=== PATIENT | female | born 1940 | race Caucasian/White ===

== ENCOUNTER 2023-09-01 20:34 | Inpatient (IN) | payer MEDICARE, MEDICAID, SELFPAY ==
[2023-09-01 20:38] VITALS: BP 159/107; PULSE 91; RESP 18; TEMP 36.5; O2SAT 95; BMI 15.6
--- NOTE | 2023-09-01 20:40 | XRR_ITS ---
PROCEDURE INFORMATION: Exam: XR Left Hip Exam date and time: 09/01/2023 8:55 PM Age: 83 years old Clinical indication: Injury or trauma; Fall; Other: U/k; Patient HX: Left lateral hip pain; Additional info: Fall pain TECHNIQUE: Imaging protocol: Radiologic exam of the left hip. Views: 2 or 3 views hip with pelvis when performed. COMPARISON: No relevant prior studies available. FINDINGS: Bones/joints: Left hip intertrochanteric angulated impacted fracture. Lumbar spine degenerative disc space disease. Soft tissues: Unremarkable. XR/XR hip LT 2-3V wo/w pel* [id number] IMPRESSION: 1. Left hip intertrochanteric angulated impacted fracture. 2. Lumbar spine degenerative disc space disease.
--- NOTE | 2023-09-01 20:41 | ED_ITS ---
HPI - Fall 2 General: Chief Complaint: Extremity Injury, Lower Stated Complaint: Fall LT hip pain Time Seen by Provider: 09/01/23 20:37 History of Present Illness: Patient presents to the ER with complaints of a fall and left hip pain. Patient states she fell at home and landed on her left hip and started having excruciating pain in it. Patient denies any loss of consciousness syncope or passing out. Patient denies any head pain or neck pain. Patient did arrive by EMS with a c-collar in place. Patient has no other complaints other than left hip. Review of Systems 2 General: Reports: 10 or more systems reviewed and unremarkable except in HPI and below Physical Exam 2 Const: COMMON NORMALS: no acute distress, average body habitus, patient oriented x3, no limitations, healthy appearing, alert and well nourished HENMT: COMMON NORMALS: normocephalic, atraumatic, hearing grossly normal bilaterally, external ears normal, EAC's normal, Normal external nose present, moist oral mucous membranes and oropharynx normal HEAD & SCALP: normocephalic and atraumatic NOSE: Normal external nose present EXTERNAL EAR: Yes external ears normal EXTERNAL AUDITORY CANAL: EAC's normal Eye: COMMON NORMALS: Equal, round and reactive pupils present, EOMs intact bilaterally, conjunctivae normal and no scleral icterus CONJUNCTIVA: Yes conjunctivae normal PUPIL: Yes Equal, round and reactive pupils present Neck/C-Spine: COMMON NORMALS: full ROM, no lymphadenopathy, supple, no meningeal signs, no JVD and Thyroid normal THYROID: Thyroid normal Chest: COMMONS NORMALS: normal inspection of the chest and normal palpation of entire chest wall Resp: COMMON NORMALS: normal respiratory effort, No retractions, No use of accessory muscles and clear to auscultation bilaterally AUSCULTATION: clear to auscultation bilaterally Cardio: COMMON NORMALS: no JVD, regular rate, regular rhythm, S1 normal heart sound present, S2 normal heart sound present, No gallops present (Cardio), No clicks present (Cardio), No murmurs present (Cardio) and No rub (Cardio) R ATE: regular rate RHYTHM: regular rhythm HEART SOUNDS: S1 normal heart sound present and S2 normal heart sound present GI: COMMON NORMALS: Normal to inspection, nondistended, normoactive bowel sounds present, Soft to palpation, non-tender, No hepatosplenomegaly present and no masses PALPATION: Yes Soft to palpation and Yes No hepatosplenomegaly present Extremity: NARRATIVE EXTREMITY EXAM: Left lower leg drawn up, prominent tenderness with palpation over left hip region. No obvious crepitus deformity. Neuro: COMMON NORMALS: patient oriented x3 SENSORIUM/ORIENTATION: Yes alert MENINGEAL SIGNS: Yes no meningeal signs Course 2 Vital Signs: Vital signs: Vital Signs Temperature 97.7 F 09/01/23 20:38 Pulse Rate 85 09/01/23 22:27 Respiratory Rate 18 09/01/23 20:38 Blood Pressure 81/68 09/01/23 22:27 Pulse Oximetry 95 09/01/23 22:27 Oxygen Delivery Me thod Room Air 09/01/23 22:27 MDM - Fall Medical Decision Making Left hip x-ray was obtained which showed a left intertrochanteric angulated impacted hip fracture. Dr. Bergeron was consulted for further evaluation and treatment from medical standpoint we will do presurgical labs and EKG, Dr. Mills will be consulted from an orthopedic standpoint anticipate admission to [facility]. Dr. Mills notified we will obtain a full-length left femur and left knee in anticipation of probable surgery in the morning, Differential Diagnosis Unlikely syncope, dislocation of shoulder region, fracture of wrist, compression fracture, concussion with loss of consciousness or concussion without loss of consciousness Medical Records I reviewed the patient's medical records. Lab Data I reviewed the patient's lab results. 09/01/23 21:21 09/01/23 21:21 Radiology Impressions Hip/Pelvis X-Ray 09/01/23 20:40 IMPRESSION: 1. Left hip intertrochanteric angulated impacted fracture. 2. Lumbar spine degenerative disc space disease. Chest X-Ray 09/01/23 20:58 IMPRESSION: 1. Negative for acute abnormality. 2. Emphysematous changes. Laboratory Results WBC 7.92 10^3/uL (3.29-11.43) 09/01/23 21:21 RBC 4.07 10^6/uL (3.85-5.65) 09/01/23 21:21 Hgb 11.00 g/dL (11.27-16.99) L 09/01/23 21:21 Hct 34.5 % (36-47) L 09/01/23 21:21 MCV 84.8 fl (85-98) L 09/01/23 21:21 MCH 27.0 pg (27-33) 09/01/23 21:21 MCHC 31.9 g/dL (30-55) 09/01/23 21:21 RDW 14.5 % (12.1-15.1) 09/01/23 21:21 Plt Count 298 10^3/cmm (157-399) 09/01/23 21:21 MPV 11.2 fL (7.4-10.4) H 09/01/23 21:21 Neut % (Auto) 77.3 % 09/01/23 21:21 Lymph % (Auto) 13.5 % 09/01/23 21:21 [place] % (Auto) 7.1 % 09/01/23 21:21 Eos % (Auto) 1.1 % 09/01/23 21:21 Baso % (Auto) 0.6 % 09/01/23 21:21 Neut # (Auto) 6.12 10^3/uL (1.8-7.7) 09/01/23 21:21 Lymph # (Auto) 1.1 10^3/uL (0.8-4.8) 09/01/23 21:21 [place] # (Auto) 0.6 10^3/uL (0.2-0.9) 09/01/23 21:21 Eos # (Auto) 0.1 10^3/uL (0.0-0.8) 09/01/23 21:21 Baso # (Auto) 0.1 10^3/uL (0.0-0.1) 09/01/23 21:21 Nucleated RBC % (auto) 0 % 09/01/23 21:21 Nucleated RBCs # 0.0 /100WBC 09/01/23 21:21 PT 13.30 SECONDS (12.1-14.9) 09/01/23 21:21 INR 0.98 (0.8-1.2) 09/01/23 21:21 Sodium 138 mmol/L (136-145) 09/01/23 21:21 Potassium 4.2 mmol/L (3.5-5.1) 09/01/23 21:21 Chloride 101 mmol/L (98-107) 09/01/23 21:21 Carbon Dioxide 25 mmol/L (22-29) 09/01/23 21:21 Anion Gap 16.2 (5-19) 09/01/23 21:21 BUN 20 mg/dL (8-23) 09/01/23 21:21 Creatinine 1.2 mg/dL (0.5-0.9) H 09/01/23 21:21 GFR Calculation Not Reportable 09/01/23 21:21 Glucose 309 mg/dL (65-115) H 09/01/23 21:21 Calculated Osmolality 300 mOsm/kg (285-295) H 09/01/23 21:21 Calcium 9.0 mg/dL (8.5-10.5) 09/01/23 21:21 Total Bilirubin 0.2 mg/dL (0.15-1.2) 09/01/23 21:21 AST 19 U/L (0-32) 09/01/23 21:21 ALT 15 U/L (0-33) 09/01/23 21:21 Alkaline Phosphatase 100 U/L (35-105) 09/01/23 21:21 Total Protein 7.1 g/dL (6.6-8.7) 09/01/23 21:21 Albumin 4.0 g/dL (3.5-5.2) 09/01/23 21:21 Globulin 3.1 g/dL (1.3-4.6) 09/01/23 21:21 Urine Color Yellow (Yellow) 09/01/23 21:37 Urine Appearance Cloudy (CLEAR) A 09/01/23 21:37 Urine pH 6 (5-7) 09/01/23 21:37 Ur Specific [employer] 1.015 (1.005-1.030) 09/01/23 21:37 Urine Protein 2+ (Negative) H 09/01/23 21:37 Urine Glucose (UA) Trace (Normal) H 09/01/23 21:37 Urine Ketones Negative (Negative) 09/01/23 21:37 Urine Blood 3+ (Negative) H 09/01/23 21:37 Urine Nitrate Negative (Negative) 09/01/23 21:37 Urine Bilirubin Neg (Negative) 09/01/23 21:37 Urine Urobilinogen 1 mg/dL (Negative) H 09/01/23 21:37 Ur Leukocyte Esterase 2+ (Negative) H 09/01/23 21:37 Urine RBC 10-15 /hpf (0-2) H 09/01/23 21:37 Urine WBC 25-40 /hpf (0-5) H 09/01/23 21:37 Ur Squamous Epith Cells 15-25 /hpf (0-5) H 09/01/23 21:37 Amorphous Sediment Not Reportable 09/01/23 21:37 Urine Bacteria 2+ /hpf (NONE) H 09/01/23 21:37 Urine Mucus 2+ /hpf 09/01/23 21:37 Blood Type A Positive 09/01/23 21:21 Rho(D) Type Rh positive 09/01/23 21:21 Antibody Screen Negative 09/01/23 21:21 All radiology interpretation(s) finalized by discharge EKG Data EKG 1: I personally reviewed and interpreted this EKG as follows: EKG interpretation date: 09/01/23 EKG interpretation time: :29 Interpretation: Ventricular rate 84 bpm, CA interval 179, QRS duration 112, QTc of 452, sinus rhythm Discharge Plan Discharge Patient Disposition: Admitted As Inpatient Admit Provider: Gus Bergeron Clinical Impression: Closed intertrochanteric fracture of left hip, Fall Condition: Stable Coding Level of Care Code ED Choke Reamer for Vimal Solomon
--- NOTE | 2023-09-01 20:58 | XRR_ITS ---
PROCEDURE INFORMATION: Exam: XR Chest Exam date and time: 09/01/2023 9:02 PM Age: 83 years old Clinical indication: Injury or trauma; Fall; Other: U/k TECHNIQUE: Imaging protocol: Radiologic exam of the chest. Views: 1 view. COMPARISON: No relevant prior studies available. FINDINGS: Lungs: Emphysematous changes. Pleural spaces: Unremarkable. No pleural effusion. No pneumothorax. Heart/Mediastinum: Unremarkable. No cardiomegaly. Bones/joints: Unremarkable. XR/XR chest 1V portable [id number] IMPRESSION: 1. Negative for acute abnormality. 2. Emphysematous changes.
--- NOTE | 2023-09-01 21:04 | ECG_ITS ---
[facility] Test Date: 2023-09-01 Pat Name: Tamela Wahl Department: Room: Gender: Female Curriculum And Assessment Director: : 1940 Requested By: Osman Jordan Order Number: [id number] Amol MD: Sj Fatima M.D. Measurements Intervals [place] Rate: 84 P: 75 TX: 179 QRS: 73 QRSD: 112 T: 78 QT: 411 QTc: 487 Interpretive Statements SINUS RHYTHM SEPTAL MYOCARDIAL INFARCTION , PROBABLY OLD [40+ ms Q WAVE IN V1/V2] No previous ECG available for comparison Electronically Signed On 09-02-2023 17:53:45 ROBOTYPE OPERATOR by Sj Fatima M.D. [email or web address] and infantsTripGemsashtabula county medical centerSmart GPS Backpack/store/NU/[id number] f
[2023-09-01 21:32] LABS: Basophils # 0.1 10^3/uL (0.0-0.1); Basophils % 0.6 %; Eosinophils # 0.1 10^3/uL (0.0-0.8); Eosinophils % 1.1 %; Hematocrit 34.5 % (36-47); Lymphocytes # 1.1 10^3/uL (0.8-4.8); Lymphocytes % 13.5 %; Mean Corpuscular HGB Conc 31.9 g/dL (30-55); Mean Corpuscular Volume 84.8 fl (85-98); Mean Platelet Volume 11.2 fL (7.4-10.4); Monocytes # 0.6 10^3/uL (0.2-0.9); Monocytes % 7.1 %; Neutrophils # 6.12 10^3/uL (1.8-7.7); Neutrophils % 77.3 %; Nucleated Red Blood Cells % 0 %; Platelet Count 298 10^3/cmm (157-399); Red Blood Count 4.07 10^6/uL (3.85-5.65); Red Cell Distribution Width 14.5 % (12.1-15.1); White Blood Count 7.92 10^3/uL (3.29-11.43)
--- NOTE | 2023-09-01 21:39 | XRR_ITS ---
PROCEDURE INFORMATION: Exam: XR Left Femur Exam date and time: 09/01/2023 10:52 PM Age: 83 years old Clinical indication: Injury or trauma; Fall; Other: Unknown; Additional info: Fall hip FX TECHNIQUE: Imaging protocol: Radiologic exam of the left femur. Views: 1 view. COMPARISON: CR (PELVIS, ) 09/01/2023 8:55 PM FINDINGS: Bones/joints: Single lateral view is negative for abnormality, consider additional views and/or CT for further evaluation if concern for abnormality remains. Soft tissues: See above XR/XR femur LT min 2V* [id number] IMPRESSION: Single lateral view is negative for abnormality, consider additional views and/or CT for further evaluation if concern for abnormality remains.
[2023-09-01 21:42] LABS: INR 0.98 (0.8-1.2)
[2023-09-01 21:58] LABS: Alanine Aminotransferase 15 U/L (0-33); Alkaline Phosphatase 100 U/L (35-105); Anion Gap 16.2 (5-19); Aspartate Amino Transferase 19 U/L (0-32); Blood Urea Nitrogen 20 mg/dL (8-23); Carbon Dioxide 25 mmol/L (22-29); Chloride 101 mmol/L (98-107); Creatinine Clr Calc Pharmacy 28.2117; Globulin 3.1 g/dL (1.3-4.6); Glucose 309 mg/dL (65-115); Osmolality Calculated 300 mOsm/kg (285-295); Potassium 4.2 mmol/L (3.5-5.1); Sodium 138 mmol/L (136-145); Total Bilirubin 0.2 mg/dL (0.15-1.2); Total Protein 7.1 g/dL (6.6-8.7)
[2023-09-01 22:00] LABS: Urine Appearance Cloudy (CLEAR); Urine Color Yellow (Yellow)
[2023-09-01 22:01] LABS: Add Urine Microscopic? YES; Bilirubin Urine Neg (Negative); Blood Urine 3+ (Negative); Glucose Urine UA Trace (Normal); Ketones Urine Negative (Negative); Leukocyte Esterase Urine 2+ (Negative); Nitrate Urine Negative (Negative); Protein Urine 2+ (Negative); Specific Gravity, Urine 1.015 (1.005-1.030); Urobilinogen Urine 1 mg/dL (Negative); pH Urine 6 (5-7)
[2023-09-01 22:02] LABS: Bacteria Urine 2+ /hpf; Mucus Urine 2+ /hpf; Squamous Epithelial Cell Urine 15-25 /hpf (0-5); WBC Urine 25-40 /hpf (0-5)
[2023-09-01 22:03] LABS: Add Urine Culture? No
[2023-09-01 22:27] VITALS: BP 81/68; PULSE 85; O2SAT 95
[2023-09-01 22:40] VITALS: RESP 18; O2SAT 96
[2023-09-01] MEDS: fentaNYL 50 mcg/mL INJ 2mL IVP (22:40)
--- NOTE | 2023-09-01 23:43 | PC.NURSE ---
Report was called to Meryl ROBERTS on [place]. All questions and concerns were addressed at time of report.
[2023-09-02] VITALS (17 sets, daily range): BP systolic 91–132; BP diastolic 38–63; PULSE 76–98; RESP 14–20; TEMP 36.3–37.4; O2SAT 91–100; BMI 15.6
--- NOTE | 2023-09-02 00:06 | P.HP_ITS ---
Providers/Chief Complaint 2 Admitting Physician: Gus Bergeron Chief Complaint: Fall LT hip pain History of Present Illness Pleasant 83-year-old lady states he slipped and fell at the senior facility where she resides, with pain in her left hip, stayed on the floor for about 10 minutes before she managed to call for help, on assessment in ER after the fall she is found to have intertrochanteric angulated impacted left hip fracture. She does not ambulate at the facility, she states that she has no limitations of shortness of breath, chest pain or other that limit her walking. Denies any other health issues apart from the fall and states otherwise has been at baseline state of health. Review of Systems 2 Const: Denies: fever(s), chills, body aches or malaise ENMT: Denies: throat pain Card: Denies: chest pain, edema, pre-syncope or dyspnea on exertion Resp: Denies: dyspnea, productive cough, change in phlegm color or hemoptysis GI: Denies: abdominal pain, nausea, vomiting, diarrhea, constipation, hematochezia or melena : Denies: flank pain, urinary frequency or hematuria Musc: Reports: extremity pain; Denies: back pain, joint swelling or joint redness Skin/Breast: Denies: rash or new lesions Neuro: Denies: headache(s), dizziness or confusion Medications/Allergies Allergies Allergy/AdvReac Type Severity Reaction Status Date / Time codeine Allergy Unknown Unknown Verified 09/01/23 20:48 latex Allergy Unknown Unknown Verified 09/01/23 20:49 PFSH Acute 2 PFSH: Medical History Smoking addiction CVA (cerebral vascular accident) Hypercholesterolemia HTN (hypertension) DM type 2 (diabetes mellitus, type 2) Surgical History H/O toe surgery Social History (Updated 09/02/23 @ 00:23 by Gus Bergeron MD) Smoking and tobacco/nicotine status: current every day tobacco/nicotine user Vitals/I&O/Wt Last Vital Signs Temp 97.7 F 09/01/23 20:38 Pulse 85 09/01/23 22:27 Resp 18 09/01/23 22:40 BP 81/68 09/01/23 22:27 Pulse Ox 96 09/01/23 22:40 O2 Del Method Room Air 09/01/23 22:27 Weight last 48 hrs Weight 49.442 kg Physical Exam 2 Const: COMMON NORMALS: patient oriented x3 and alert GENERAL APPEARANCE: c ooperative ORIENTATION/CONSCIOUSNESS: Yes awake HENMT: COMMON NORMALS: oropharynx normal Neck/C-Spine: COMMON NORMALS: no JVD Resp: COMMON NORMALS: normal respiratory effort and clear to auscultation bilaterally AUSCULTATION: clear to auscultation bilaterally Cardio: COMMON NORMALS: no JVD, regular rhythm, S1 normal heart sound present, S2 normal heart sound present and No murmurs present (Cardio) RHYTHM: regular rhythm HEART SOUNDS: S1 normal heart sound present and S2 normal heart sound present GI: COMMON NORMALS: Normal to inspection, nondistended, normoactive bowel sounds present, Soft to palpation and non-tender PALPATION: Yes Soft to palpation Extremity: COMMON NORMALS: no joint enlargement and no pedal edema OTHER: Everted, or shortened left lower extremity. No swelling, redness, bruising over the left hip. Left lower extremity perfused, warm to touch, no loss of sensation. 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 Data 09/01/23 21:21 09/01/23 21:21 A&P Assessment and plan (1) Closed intertrochanteric fracture of left hip: Early after slipping and falling at home. Does appear to have UTI, question whether contributed to the fall. Angulated impacted intertrochanteric left hip fracture. Reviewed vitals, CBC, INR, CMP, UA, hip and pelvis x-ray, femur x- ray, chest x-ray, ER note, discussed with ER provider. Pending orthopedic assessment, she wants to pursue surgical intervention to repair the hip, resume mobility. Discussed with her some increasing the risk from surgery due to her age, smoking, comorbidities. Baseline EKG obtained, reviewed. On my interpretation without suggestion of acute OR or ischemia. Appears may have a Q wave in V2. Monitor on telemetry. NPO. SCD for VTE prophylaxis, 1 dose of heparin in anticipation of surgical intervention. Consultation with PT, case management. Received IV fentanyl in ER. Continue Tylenol for any mild pain, IV morphine for breakthrough. Qualifiers: Encounter type: initial encounter Fracture alignment: displaced Qualified Code(s): S72.142A - Displaced intertrochanteric fracture of left femur, initial encounter for closed fracture (2) UTI (urinary tract infection): Question whether UTI contributed to her fall, but does have 15-25, stable cells on UA. Empiric ceftriaxone for now, requesting urine culture. De-escalating case with no growth. (3) Smoking addiction: Discussed with her smoking cessation for 4 minutes, continue to encourage cessation. Nicotine replacement as needed. (4) Fall: Additional management of hip fracture as above. Additional assessment for possible UTI as above. PT assessment. Qualifiers: Encounter type: initial encounter Qualified Code(s): W19.XXXA - Unspecified fall, initial encounter Plan FLAKITO: Possible mild FLAKITO versus CKD, baseline unknown, creatinine noted 1.2. Avoid NSAIDs, other nephrotoxins. Emphysema: Incidentally noted on CT. She is doing well on room air. Encourage smoking cessation. Follow-up with PCP, consider PFT if symptomatic. History of stroke: Resume aspirin after surgery. Continue statin DM2: Monitor Accu-Cheks, sliding scale started. CC diet once resumed. Goals of care discussion: She is okay for treatment of her condition, including surgical intervention, intubation for surgery, but in case of cardiopulmonary arrest would not want CPR, intubation, Ventilation or other involved interventions. Attestations 2 Medical Necessity Statement*: Admission over 2 midnights anticipated for assessment management of angulated impacted intertrochanteric left hip fracture. and High MDM includes amount and/or complexity of data reviewed/ordered [ previous or external records, resulted lab(s)/test(s), ordered lab(s)/test(s) and other healthcare professional discussion] and described risk of complication, morbidity or mortality of management as documented Diagnoses Closed intertrochanteric fracture of left hip S72.142A Encounter type: initial encounter Fracture alignment: displaced UTI (urinary tract infection) N39.0 Smoking addiction F17.200 Fall W19.XXXA Encounter type: initial encounter
[2023-09-02] MEDS: morphine 4 mg/mL SDV 1 mL 2 MG IVP ×3 (00:55→15:27)
[2023-09-02] MEDS: cefTRIAXone 1,000 MG in sodium chloride 0.9% (plus) 50 ML 100 MG IV (00:58)
[2023-09-02] MEDS: heparin 5,000 unit/mL INJ 1 mL 5000 UNIT SUBCUT (01:01)
[2023-09-02] MEDS: cyclobenzaprine 10 mg Tablet 5 MG PO (03:13)
[2023-09-02 06:38] LABS: Glucose Point of Care 266 mg/dL (70-110)
[2023-09-02] MEDS: insulin lispro 100 unit/1 mL SUBCUT (08:02)
--- NOTE | 2023-09-02 09:30 | PC.SOCIAL ---
Pg 2 IMM Explained to pt Pg 2 IMM. No questions voiced. Provided pt a copy. Initialed, dated, & timed a copy & placed in chart.
--- NOTE | 2023-09-02 09:47 | PC.CHAP ---
Pastoral Care Encounter/Spiritual Assessment Type of Contact [] Declined chemical lab supervisor visit [] Patient/Family/Request visit [] Outpatient visit [] Follow-up visit [] Physician referral [] Code/Alert [x] Routine visit [] Staff referral [] Actively dying [] Patient sleeping [] Family support [] [] Out of room [] Palliative care [] [] Receiving care in room [] Pre-surgical visit [] Trauma [] Long length of stay [] ICU visit [] Other: Relational/Emotional Strength [x] Patient feels connected with others/family/visitors/staff [] Distress [] Loneliness/isolation [] Abandonment Spirituality of Patient [x] Person of Yaritza [] Attends [employer] of their Yaritza [x] Believes in Prayer [] Reads Bible or Christianity materials [] There are Spiritual issues to be addressed Manager Metrology Interventions [x] Prayer [x] Active listening [] Non-anxious presence [x] Spiritual/emotional support [] Crisis/trauma care [] Spiritual counseling [] Bereavement support [] Provided bereavement packet [] Provided Bible/devotional materials [] Provided toy/stuffed animal, coloring book to patient or family member [] Provided Communion [] Anointing/[place] [] Salvation [x] Completed spiritual assessment [] Other: Impact on Illness or Injury [] Angry [] Fearful [] Anxious [] Often cries [] Exhaustion [] Unable to work [] Unable to attend zoroastrianism [] Unable to walk/stand [] Unable to read [] Unable to drive [] Unable to eat/drink [] Unable to sleep [] Unable to be with family [] Patient intubated [] Other: Summary Time spent with patient 5 min
--- NOTE | 2023-09-02 09:57 | P.CONIM_ITS ---
<Statement entered by Santosh Mills DO - 09/02/23 19:24> Reviewed PAs assessment and plan agree with assessment and plan. Patient was seen evaluated by myself in the preoperative area she is oriented and alert and able to answer questions follow commands states she lives by herself. Denies having any family and home health comes out twice a week to help her out. She sustained a ground-level fall. Patient denied loss of consciousness complains of left hip pain. Review of her x-rays and preoperative x-rays were ordered prior to surgery and demonstrate a intertrochanteric femur fracture with subtrochanteric extension along with a spiral oblique fracture into the shaft of the femur. This point in time would recommend a left hip trochanteric long femur nail we talked about the treatment options nonoperative and operative invention. For fracture stabilization as well as earlier mobilization and pain control as well as given patient's displacement deformity would recommend surgical intervention she understands the ins and outs procedure risk benefits complication alternatives with surgery elects proceed with surgical intervention. All questions have been answered at this time. Understanding risk of surgery elects proceed all questions answered at this time. Plan will be postoperatively patient returned to the floor. Santosh Mills DO Orthopedic surgery Providers/Reason For Consult 2 Consulting Physician/Specialty*: Dr. Gene DO/ Orthopedic Surgeon Reason for Consult*: Left Intertrochanteric hip fracture Requesting Physician: Dr. Nikki DO Attending Physician: Noelle Andrew MD History of Present Illness History of Present Illness Tamela Wahl is a 83 year old female that has left hip fracture from fall. Orthopedics was consulted on patients left hip fracture. Patient has a past medical history of diabetes and hypertension. Pt lives at home alone and uses a walker at baseline. She states that she has a home health aide that comes out 2 days a week. Her injury occurred last night when she stood up and turned and then fell over causing left hip injury. She has some abrasions on both elbows but denies any other injury. Denies being on any blood thinners. Denies any fevers, upper respiratory symptoms, shortness of breath, chest pain, abdominal pain, nausea/vomiting, bladder or bowel symptoms. Review of Systems 2 General: Reports: 10 or more systems reviewed and unremarkable except in HPI and below ENMT: Denies: throat pain Card: Denies: chest pain Resp: Denies: dyspnea, productive cough or non-productive cough GI: Denies: abdominal pain, nausea, vomiting, diarrhea or constipation : Denies: dysuria Musc: Reports: joint pain (left hip pain) and limited range of motion (left hip) Skin/Breast: Reports: other (abrasions on bilateral elbows) Medications/Allergies Home Medications Medication Instructions Recorded Confirmed Last Taken Type amlodipine 5 mg tablet 5 mg PO DAILY 09/02/23 09/02/23 1 Day Ago History ~09/01/23 glipizide 10 mg tablet 10 mg PO BID 09/02/23 09/02/23 Unknown History hydrochlorothiazide 25 mg tablet 25 mg PO DAILY 09/02/23 09/02/23 09/01/23 06:00 History levothyroxine 50 mcg tablet 50 mcg PO DAILY 09/02/23 09/02/23 09/01/23 07:00 History (Levo-T) lisinopril 40 mg tablet 40 mg PO DAILY 09/02/23 09/02/23 1 Day Ago History ~09/01/23 0700 metformin 1,000 mg tablet 1,000 mg PO BID 09/02/23 09/02/23 1 Day Ago History ~09/01/23 0700 rosuvastatin 20 mg tablet 20 mg PO BEDTIME 09/02/23 09/02/23 2 Days Ago History ~08/31/23 sitagliptin phosphate 50 mg tablet 50 mg PO DAILY 09/02/23 09/02/23 09/01/23 07:00 History (Sis) Allergies Allergy/AdvReac Type Severity Reaction Status Date / Time codeine Allergy Unknown Unknown Verified 09/01/23 20:48 latex Allergy Unknown Unknown Verified 09/01/23 20:49 Current Medications Generic Name Dose Route Start Last Admin Trade Name Freq PRN Reason Stop Dose Admin Cyclobenzaprine HCl 5 mg 09/02/23 02:32 09/02/23 03:13 Cyclobenzaprine 10 Mg Tablet PO 09/03/23 02:31 5 mg TID PRN Administration MUSCLE SPASMS Ceftriaxone Sodium 1,000 mg/ 50 mls @ 100 mls/hr 09/02/23 00:35 09/02/23 02:26 Sodium Chloride IV Infused Q24H JUJU Infusion Protocol Insulin Human Lispro 0 unit 09/02/23 08:00 09/02/23 08:02 Insulin Lispro 100 Unit/1 Ml SUBCUT 8 unit WM&BEDTIME JUJU Administration Protocol Morphine Sulfate 2 mg 09/02/23 00:37 09/02/23 08:11 Morphine 4 Mg/Ml Sdv 1 Ml IVP 2 mg Q4H PRN Administration SEVERE PAIN PFSH Acute 2 PFSH: Medical History Smoking addiction CVA (cerebral vascular accident) Hypercholesterolemia HTN (hypertension) DM type 2 (diabetes mellitus, type 2) Surgical History H/O toe surgery Social History (Updated 09/02/23 @ 00:23 by Gus Bergeron MD) Smoking and tobacco/nicotine status: current every day tobacco/nicotine user Vitals/I&O/Wt Last Vital Signs Temp 97.8 F 09/02/23 08:00 Pulse 94 09/02/23 08:00 Resp 15 09/02/23 08:00 BP 110/60 09/02/23 08:00 Pulse Ox 95 09/02/23 08:00 O2 Del Method Room Air 09/02/23 08:00 09/01/23 09/02/23 09/02/23 22:59 06:59 14:59 Intake Total 50 / 50 Output Total 250 / 250 Balance -200 / -200 Weight last 48 hrs Weight 109 lb Weight 109 lb Physical Exam 2 Const: COMMON NORMALS: no acute distress and alert Resp: COMMON NORMALS: normal respiratory effort and No retractions Cardio: COMMON NORMALS: Peripheral pulses 2+ throughout PERIPHERAL PULSES: Peripheral pulses 2+ throughout Extremity: NARRATIVE EXTREMITY EXAM: Left hip-Leg is shortened and Internally rotated. tenderness to palpation of greater Trochanter. Positive Log Roll test. Pedal pulse 1+, normal cap refill under 2 seconds. sensation to foot intact. Secondary assessment of all other extremities?full range of motion and elbows in full range of motion of the right shoulder. Left shoulder has limited range of motion, but patient says that is her normal baseline function. She has Multiple superficial abrasions on bilateral elbows. Right lower extremity no abrasions and lno deformity seen. Pt able to move right leg. Any movement of right leg causes pain in her left hip. Neuro: SENSORIUM/ORIENTATION: Yes alert Skin: GENERAL SKIN EXAM: dry skin Urinary Catheter Management: Bowden: Cath Placed During This Visit: yes Reason for Continuing Indwelling Catheter: Required Immobilization for Trauma or Surgery or Anesthesia Urinary Catheter Date of Insertion: 09/02/23 Urinary Catheter Time of Insertion: 02:00 Data 09/01/23 21:21 09/01/23 21:21 Xray Ortho: Radiologist's impression: [address] [address] XRay Report Signed Patient: Tamela Wahl Unit #: [id number] : 1940 Age/Sex: 83 / F ADM Date: 09/01/23 Loc: [facility] Room/Bed: [facility] Attending Dr: Gus Bergeron MD Ordering Provider/Ordering MD: Osman Jordan DO Date of Service: 09/01/23 Procedure(s): XR femur LT min 2V* [id number] Accession Number(s): [id number] Report Number: [id number] PROCEDURE INFORMATION: Exam: XR Left Femur Exam date and time: 09/01/2023 10:52 PM Age: 83 years old Clinical indication: Injury or trauma; Fall; Other: Unknown; Additional info: Fall hip FX TECHNIQUE: Imaging protocol: Radiologic exam of the left femur. Views: 1 view. COMPARISON: CR (PELVIS, ) 09/01/2023 8:55 PM FINDINGS: Bones/joints: Single lateral view is negative for abnormality, consider additional views and/or CT for further evaluation if concern for abnormality remains. Soft tissues: See above XR/XR femur LT min 2V* [id number] IMPRESSION: Single lateral view is negative for abnormality, consider additional views and/or CT for further evaluation if concern for abnormality remains. Dictated By: Jace Kauffman MD Signed By: Jace Kauffman MD Signed Date/Time: 09/02/23 0016 DD/ 225 A&P Assessment and plan (1) Closed intertrochanteric fracture of left hip: Qualifiers: Encounter type: initial encounter Fracture alignment: displaced Qualified Code(s): S72.142A - Displaced intertrochanteric fracture of left femur, initial encounter for closed fracture Plan Plan: -Imaging and Labs reviewed -Hospitalist on board for medical management. -VTE prophylaxis -Nonweightbearing on Left leg -Pain control -N.p.o. -Surgery later Today (late afternoon or early evening) for Left hip ORIF with Trochanteric (Long) femur nail Coding Level of Care Code Acute Code for Chg Fwd Diagnoses Closed intertrochanteric fracture of left hip S72.142A Encounter type: initial encounter Fracture alignment: displaced Time Spent (min) 45
[2023-09-02 11:40] LABS: Glucose Point of Care 118 mg/dL (70-110)
--- NOTE | 2023-09-02 12:40 | PM.MISC ---
Miscellaneous Note Purpose of Documentation: Seen today. Plan for surgery later today. Patient n.p.o. since midnight. Does not offer any other complaints at this time. Resting comfortably in bed.
[2023-09-02 16:41] LABS: Glucose Point of Care 190 mg/dL (70-110)
[2023-09-02] MEDS: sodium chloride 0.9% 1,000 ML 30 ML IV (18:34)
--- NOTE | 2023-09-02 18:38 | PC.NURSE ---
SHIFT SUMMARY Pt rested quietly most of shift. When she reported pain, Morphine given. Pt goes to surgery at 1730.
[2023-09-02] MEDS: acetaminophen 1,000 MG/100 ML PIGGYBACK 400 MG IV (18:39)
[2023-09-02] MEDS: ketorolac 30 mg/mL INJ IVP (18:50)
--- NOTE | 2023-09-02 19:07 | ANES.PREANE2 ---
Pre-Anesthetic Assessment Height/Weight: Height 1.78 m Weight 49.442 kg Temp Pulse Resp BP Pulse Ox O2 Del Method O2 Flow Rate 99.3 F 97 20 H 122/46 91 Nasal Cannula 2 09/02/23 18:18 09/02/23 18:18 09/02/23 18:18 09/02/23 18:18 09/02/23 18:18 09/02/23 18:18 09/02/23 18:18 Operation Date: 09/02/23 17:35 Proposed Procedures p Trochanteric Femoral Nail(Left) - Santosh Gene, DO Was Beta Chase taken within 24 hours: N/A Was Clonidine taken within 24 hours: N/A Last intake: Intake Last Liquid Date 09/02/23 Last Liquid Time 00:00 Last Solid Date 09/01/23 Last Solid Time 17:30 Social Tobacco Exam alert and oriented x 3 Airway Submandibular: within normal limits Cervical ROM: within normal limits Mallampati: Class II Comments: Comments: Edentulous Pulmonary Chronic Obstructive Pulmonary Disease CV/HEM Hypertension Metabolic Diabetes Mellitus, Hyperlipidemia and Thyroid Disease Anesthetic Plan ASA status: 3 Anesthesia: General Risk of > 500 ml blood loss (7ml/kg in children): No Medications/Allergies Home Medications Medication Instructions Recorded Confirmed Last Taken Type amlodipine 5 mg tablet 5 mg PO DAILY 09/02/23 09/02/23 1 Day Ago History ~09/01/23 glipizide 10 mg tablet 10 mg PO BID 09/02/23 09/02/23 Unknown History hydrochlorothiazide 25 mg tablet 25 mg PO DAILY 09/02/23 09/02/23 09/01/23 06:00 History levothyroxine 50 mcg tablet 50 mcg PO DAILY 09/02/23 09/02/23 09/01/23 07:00 History (Levo-T) lisinopril 40 mg tablet 40 mg PO DAILY 09/02/23 09/02/23 1 Day Ago History ~09/01/23 0700 metformin 1,000 mg tablet 1,000 mg PO BID 09/02/23 09/02/23 1 Day Ago History ~09/01/23 0700 rosuvastatin 20 mg tablet 20 mg PO BEDTIME 09/02/23 09/02/23 2 Days Ago History ~08/31/23 sitagliptin phosphate 50 mg tablet 50 mg PO DAILY 09/02/23 09/02/23/24 07:00 History (Sis) Allergies Allergy/AdvReac Type Severity Reaction Status Date / Time codeine Allergy Unknown Unknown Verified 09/01/23 20:48 latex Allergy Unknown Unknown Verified 09/01/23 20:49 Current Medications Generic Name Dose Route Start Last Admin Trade Name Freq PRN Reason Stop Dose Admin Cyclobenzaprine HCl 5 mg 09/02/23 02:32 09/02/23 03:13 Cyclobenzaprine 10 Mg Tablet PO 09/03/23 02:31 5 mg TID PRN Administration MUSCLE SPASMS Ceftriaxone Sodium 1,000 mg/ 50 mls @ 100 mls/hr 09/02/23 00:35 09/02/23 02:26 Sodium Chloride IV Infused Q24H JUJU Infusion Protocol Sodium Chloride 1,000 mls @ 30 mls/hr 09/02/23 18:00 09/02/23 18:34 Sodium Chloride 0.9% IV 09/03/23 17:59 30 mls/hr .Q24H JUJU Administration Insulin Human Lispro 0 unit 09/02/23 08:00 09/02/23 11:49 Insulin Lispro 100 Unit/1 Ml SUBCUT Not Given WM&BEDTIME JUJU Protocol Morphine Sulfate 2 mg 09/02/23 00:37 09/02/23 15:27 Morphine 4 Mg/Ml Sdv 1 Ml IVP 2 mg Q4H PRN Administration SEVERE PAIN PFSH Anesthesia Medical History Smoking addiction CVA (cerebral vascular accident) Hypercholesterolemia HTN (hypertension) DM type 2 (diabetes mellitus, type 2) Surgical History H/O toe surgery Social History (Updated 09/02/23 @ 00:23 by Gus Bergeron MD) Smoking and tobacco/nicotine status: current every day tobacco/nicotine user Data Anesthesia 09/01/23 21:21 09/01/23 21:21 Short CBC 09/01/23 Range/Units 21:21 WBC 7.92 (3.29-11.43) 10^3/uL Hgb 11.00 L (11.27-16.99) g/dL Hct 34.5 L (36-47) % MCV 84.8 L (85-98) fl Plt Count 298 (157-399) 10^3/cmm Neut % (Auto) 77.3 % Neut # (Auto) 6.12 (1.8-7.7) 10^3/uL BMP 09/01/23 21:21 Sodium 138 Potassium 4.2 Chloride 101 Carbon Dioxide 25 BUN 20 Creatinine 1.2 H Glucose 309 H Calcium 9.0 Liver Function 09/01/23 Range/Units 21:21 Total Bilirubin 0.2 (0.15-1.2) mg/dL AST 19 (0-32) U/L ALT 15 (0-33) U/L Alkaline Phosphatase 100 (35-105) U/L Albumin 4.0 (3.5-5.2) g/dL Urine 09/01/23 Range/Units 21:37 Urine Color Yellow (Yellow) Urine Appearance Cloudy A (CLEAR) Urine pH 6 (5-7) Ur Specific [place] 1.015 (1.005-1.030) Urine Protein 2+ H (Negative) Urine Glucose (UA) Trace H (Normal) Urine Ketones Negative (Negative) Urine Nitrate Negative (Negative) Urine Bilirubin Neg (Negative) Ur Leukocyte Esterase 2+ H (Negative) Urine RBC 10-15 H (0-2) /hpf Urine WBC 25-40 H (0-5) /hpf Blood Bank 09/01/23 21:21 Blood Type A Positive Rho(D) Type Rh positive Antibody Screen Negative Coags 09/01/23 21:21 PT 13.30 INR 0.98 Cardiac Studies: No Data to Display
--- NOTE | 2023-09-02 19:12 | XRR_ITS ---
PROCEDURE INFORMATION: Exam: XR Left Hip Exam date and time: 09/02/2023 7:16 PM Age: 83 years old Clinical indication: Screening exam; Pre op; Additional info: Left hip fracture TECHNIQUE: Imaging protocol: Radiologic exam of the left hip. Views: 2 or 3 views hip with pelvis when performed. COMPARISON: CR XR hip LT 2-3V wo/w pel* [id number] 09/01/2023 8:55 PM FINDINGS: Bones/joints: Acute comminuted displaced intertrochanteric fracture of the proximal left femur with approximately 90 degrees varus angulation. The visualized left hemipelvis is grossly intact. Sacrum and coccyx are partially obscured by bowel gas/stool. Soft tissues: No gross soft tissue abnormality. XR/XR hip LT 2-3V wo/w pel* [id number] IMPRESSION: 1. Acute comminuted displaced intertrochanteric fracture of the proximal left femur
--- NOTE | 2023-09-02 19:12 | XRR_ITS ---
PROCEDURE INFORMATION: Exam: XR Left Femur Exam date and time: 09/02/2023 7:18 PM Age: 83 years old Clinical indication: Screening exam; Pre op; Additional info: Left hip fracture TECHNIQUE: Imaging protocol: Radiologic exam of the left femur. Views: 2 views. COMPARISON: CR XR femur LT min 2V* [id number] 09/01/2023 10:52 PM FINDINGS: Bones/joints: Acute displaced femoral shaft fracture extending from the intertrochanteric region through the mid femur. The distal femur is grossly intact. No evidence of fracture or subluxation of the left knee. Small left knee joint effusion. Dedicated radiographs of the knee may be helpful if clinically warranted. Soft tissues: Soft tissue edema of the proximal left thigh. XR/XR femur LT min 2V* [id number] IMPRESSION: 1. Acute displaced femoral shaft fracture extending from the intertrochanteric region through the mid femur. 2. Comminuted displaced intertrochanteric fracture of the left femur as described.
--- NOTE | 2023-09-02 19:13 | P.HPUD_ITS ---
Surgery/Procedure H&P Update DATE OF PROCEDURE: September 02, 2023 DATE H&P PERFORMED: 09/02/23 H&P UPDATE INFORMATION: I have reviewed H&P completed within last 30 days, I have examined patient prior to procedure and No changes to prior documentation CHANGES TO PREVIOUS DOCUMENTATION: Patient seen and evaluated PA agree with assessment and plan. Saw patient the preoperative holding area. Assessed patient. She has a displaced intertrochan teric femur fracture which apparently appears to have subtrochanteric extension unable initially to obtain images due to patient's tolerance will obtain some preoperative x-rays just once again for help with preoperative planning anticipate a left hip trochanteric long femur nail given the subtrochanteric tension that is visible on initial imaging. We talked about treatment options in detail with patient about risk benefits complication alternatives of surgery through shared decision making patient elects proceed with surgical intervention. She is oriented to place and time and self at this point in time elects to proceed with surgical intervention for left hip fixation. Patient understands and agrees with current plan. All questions answered. PREOP DIAGNOSIS: Left intertrochanteric femur fracture with subtrochanteric extension PRIMARY INDICATION FOR PROCEDURE: Left hip intertrochanteric femur fracture with subtrochanteric extension PLANNED PROCEDURE: Operation Date: 09/02/23 17:35 Proposed Procedures p Trochanteric Femoral Nail(Left) - Santosh Mills DO
[2023-09-02] MEDS: ceFAZolin 2,000 MG in sodium chloride 0.9% (plus) 50 ML 100 MG IV (19:27)
[2023-09-02] MEDS: tranexamic acid 1,000 mg/10mL SDV 1000 MG IV (19:58)
--- NOTE | 2023-09-02 21:01 | PC.NURSE ---
Upon arrival to OR room, patient noted to have skin tear to left arm, right arm and right lower extremity. Left arm and RLE dressed with optifoam dressing, right elbow was older in appearance and was dressed with telfa and coban.
[2023-09-02] MEDS: vancomycin 1,000 MG SDV 1000 MG XX (21:39)
--- NOTE | 2023-09-02 22:01 | P.BOP_ITS ---
Date of Procedure: 09/02/2023 Surgeon: Santosh Mills DO Pack Out Operator(s): Con Mills PA-C Procedure(s) performed: Left intertrochanteric/subtrochanteric/femur shaft fracture open reduction internal fixation with long cephalomedullary nail Left femur shaft open reduction internal fixation with 2 cables Findings of the procedure(s): Patient was found to have an left intertrochanteric femur fracture with subtrochanteric extension with a long spiral fracture fragment into the femur shaft. Patient underwent open reduction internal fixation procedure went as planned with no complications or issues. Will be returning to the floor postoperatively. Estimated blood loss: 250 mL Specimen(s) removed: None Post-operative diagnosis: Left intertrochanteric/subtrochanteric/femur shaft fracture
--- NOTE | 2023-09-02 22:04 | PM.OP ---
Operative Report Date of procedure: September 02, 2023 Surgeon: Santosh Mills DO Paper Testing Supervisor: Con Mills PA-C: PA was necessary for assistance in this case with leg positioning retraction and protection of neurovascular structures as well as assistance in reduction, implant fixation and instrumentation as well as wound closure and dressing application. Procedure: Preoperative diagnosis: Left displaced intertrochanteric femur fracture with subtrochanteric extension as well as a extension along the femur shaft Post-op diagnosis: Same femur shaft butterfly fracture fragment Procedure done: ?Left intertrochanteric with subtrochanteric extension femur fracture ORIF with cephalomedullary?nail Left femur shaft open reduction internal fixation with cabling Implants: Becky gamma?nail?long 11 mm x 400 mm x 125 degree Lag screw 10.5 mm x 100 mm Distal locking screw 5 mm x 45 and 50 mm 2 x 2.0 mm Jus-Miles cables Surgeon: Santosh Mills DO Estimated blood loss: 250 mL IV fluids: See anesthesia record Urine output: 150 mm Complications: See operative report Findings: See operative report narrative Condition: stable Disposition: Floor Brief History: Patient sustained a fall and was found to have a Left intertrochanteric hip fx with significant extension into the subtrochanteric region as well as appears to be a large spiral fracture fragment butterfly of the femur shaft pt has been unable to bear weight, Left hip/lower extremity shortened and internally rotated.? At this point time Pt was admitted by the hospitalist team and orthopedics was consulted.? Refer to consult note for detailed HPI.? We talked about treatment options as far as nonoperative and operative intervention. Recommend Left hip?trochanteric femur?nail.? Given the large fracture fragment of the femur shaft recommend talked about opening and likely cabling this fracture as well. At this point time patient would like to pursue surgical intervention for benefits of pain control and earlier mobilization.? ?Patient understands the ins and outs of procedure, the risk benefits complication alternatives of surgical nonsurgical treatment options.? Understanding risk of surgery pt agrees to proceed with surgical intervention all questions answered.? Consent obtained. Procedure: Patient seen evaluated in the preoperative holding area.? Consent was obtained.? Correct extremity was then marked.? Once cleared by anesthesia and the hospitalist team patient was taken back to the operative suite.? Patient underwent anesthesia per the anesthesia department.? Once appropriately anesthetized patient was placed on a fracture [place] table.? Patient was appropriately secured to the bed.? All bony prominences were well-padded.? At this point time patient received appropriate preoperative antibiotics.? Final timeout was performed.? Prior to beginning surgery a standard closed reduction maneuver was placed on the [place] table and large C-arm was brought in.? After performing a closed reduction maneuver there was able to achieve close reduction of Left intertrochanteric femur fracture.? Fracture site did? extend into the subtrochanteric as well as femur shaft component as result plan was for a Long?nail.? ?This point time the left lower extremity was then prepped and draped in standard orthopedic fashion Given patient had large spiral oblique fracture fragment the femur shaft component and this was not reducing completely on the [place] bed I then subsequently elected to proceed with opening at the fracture site of the shaft to clamp this as well as assist with cabling to hold this fracture in place to help with my reduction of this fracture. As result I performed a standard direct lateral approach to the femur sharp scalpel incision through skin and subcutaneous tissue maintaining exact hemostasis split the IT band longitudinally as well as split the vastus lateralis muscle belly fibers longitudinally with a [place] maintaining hemostasis evacuated the large hematoma and identified the fracture fragment. This oblique spiral butterfly fragment was visible and able to be manipulated with a Ozzy clamp once I was satisfied with this clamp and its reduction maintaining exactly on bone I then subsequently utilized the [employer] cable passers to pass to [employer] cables spanning appropriately along the fracture fragment this would help and secure this fragment after nail fixation clamps removed. These were then subsequently passed staying directly on bone with no soft tissue interposition and then subsequently these cables were appropriately tensioned and crimped as well as cut. At this point in time once I satisfied with this reduction small adjustments were made by my medical practice assistant to maintain the reduction of the proximal fracture component of the intertrochanteric fracture and subtrochanteric region. While this was maintained I then proceeded with a long cephalomedullary nail fixation. A standard longitudinal incision was made just proximal to the greater?trochanter roughly 4 cm in length sharp scalpel vision was made through skin and subcutaneous tissue.? I then utilized a blunt [place] to split? fascia and mobilized directly down to the greater?trochanter.? I then inserted my starting guidewire which was placed appropriate starting position the tip of the greater?trochanter.? This was advanced in AP and lateral films to be in center center position and advanced to the level lesser?trochanter.? This was confirmed to be in center center position on AP and lateral imaging.? Once this was done I then introduced my opening reamer which was then subsequently guide pin removed.? Next a long ball-tipped guidewire was then placed in center center position distally right at the superior pole the patella.? I then took a measurement which was 400 mm for length of the long?nail?screw.? The fracture reduction was maintained during reaming and I subsequently utilized flexible reamers and reamed sequentially up to a size 13 mm and elected for a 11 mm?nail.? I selected a 11 mm x 400 mm x 125 degree. At this point time the?nail?was then loaded onto the [employer] gamma?trochanteric?nail?guide.? This was placed within the canal and confirmed with XR and the setscrew was then gently placed not locked.? The?nail?was then impacted to appropriate depth .? X-rays were taken confirming appropriate positioning of the?nail?distally and reduction was maintained.? ?At this point time I then inserted my lag screw guide and subsequently used my previous lateral incision extended this approximately just slightly and encompassed the lag screw guide. Guide was placed directly onto bone.? Next I then subsequently placed the guidewire in center center position in the head with an appropriate tip to apex distance this was confirmed with multiple orthogonal images.? Once I was satisfied with my planned lag screw placement I then measured which was 100 mm.? I then set my cannulated drill and subsequently reamed this into the head at appropriate depth.? I then had my rep open the 10.5 mm x 100 mm lag screw which was then opened on the back table and subsequently screwed into place over my cannulated drill guide.? This was placed with excellent tip to apex distance.? Next I then utilized the compressing device and subsequently compressed my fracture after I let off traction.? This had excellent fracture compression and opposition and closing down to my fracture line.? Next I then locked the?nail?by locking my setscrew.? This point time the guidewire as well as the sleeve was then removed.? Next I obtained perfect circles distally at the knee to lock the?nail?distally.? I selected to first place my static screw in perfect [facility] [facility] technique small stab incision was made blunt dissection of the bone and then utilizing a drill and perfect [facility] technique drill bit was then advanced and confirmed to be within the?nail?utilizing fluoroscopic imaging I then subsequently drilled measured and placed appropriate length static locking screw.? I then subsequently added an additional screw in eccentric fashion for possible dynamization later if necessary this is placed at the central portion of the oblong hole subsequently drilled measured and placed appropriate length screw.? This completed my construct fixation the guide was subsequently removed.? And final images were taken.? AP and lateral of the Left intertrochanteric femur fracture which showed stable reduction and stable fixation.? Incision was then thoroughly irrigated.? Hemostasis was maintained with electrocautery.? I then once again thoroughly irrigated the incisions and then subsequently closed in layered fashion of 0 Vicryl 2-0 Vicryl and kd.? Silverlon dressings applied.? Patient was then awakened from anesthesia transported onto the hospital bed and taken to PACU in stable condition.? Patient tolerated procedure without complications. Disposition: Patient taken to PACU in stable condition.? Postoperatively,?will return to floor. Pts friend was updated on surgery. Patient to receive appropriate discharge instructions as well as pain medication DVT prophylaxis postoperatively.? She will be allowed weightbearing as tolerated Left lower extremity.? Will receive appropriate postoperative antibiotics, PT/OT.? Patient to follow-up in the orthopedic office in 2 weeks.?
--- NOTE | 2023-09-02 22:12 | PM.PACU ---
PACU note Narrative: Pt is an 83-year-old female just underwent a left hip ORIF with troch nail. Pt transferred to PACU in stable condition. Dressing is dry. Distal pulses are palpable toes are warm and well-perfused. Cap refill is normal and under 2 seconds. Unable to perform further motor and sensation assessment due to residual anesthetic pain is controlled. Exam: unarousable Disposition: back to floor
--- NOTE | 2023-09-02 22:13 | XR_ITS ---
WS: [id number] INTRAOPERATIVE TECHNIQUE: 13 Spot fluoroscopic images for intraoperative purposes. FLUOROSCOPY TIME: 236 seconds CLINICAL INFORMATION: OR PICS FINDINGS: Intraoperative changes palomo and screw fixation LEFT hip and intramedullary palomo and screw fixation in t he femur. Hardware appears in good position. IMPRESSION: Images obtained for intraoperative purposes.
--- NOTE | 2023-09-02 23:10 | XRR_ITS ---
PROCEDURE INFORMATION: Exam: XR Left Femur Exam date and time: 09/02/2023 11:24 PM Age: 83 years old Clinical indication: Other: Post op; Prior surgery; Surgery date: Post-operative (0-2 days); Surgery type: Lt femur orif; Additional info: Post op lt total femoral nailing. TECHNIQUE: Imaging protocol: Radiologic exam of the left femur. Views: 2 views. COMPARISON: OT XR femur LT min 2V* [id number] 09/02/2023 8:00 PM FINDINGS: Bones/joints: Comminuted intertrochanteric fracture proximal left femur and oblique fracture of the left femoral shaft are again identified. There are findings of open reduction internal fixation with metallic hardware including an intramedullary palomo. There is some residual displacement of the lesser trochanter. The other fragments are in anatomic alignment. Soft tissues: There is some air in the soft tissues from the recent surgery. XR/XR femur LT min 2V* [id number] IMPRESSION: Left femur fractures status post open reduction and internal fixation with metallic hardware.
[2023-09-03] VITALS (16 sets, daily range): BP systolic 80–145; BP diastolic 43–69; PULSE 80–88; RESP 14–17; TEMP 36.4–37.1; O2SAT 92–100
[2023-09-03] MEDS: cefTRIAXone 1,000 MG in sodium chloride 0.9% (plus) 50 ML 100 MG IV ×2 (00:05→23:40)
[2023-09-03] MEDS: ceFAZolin 2,000 MG in sodium chloride 0.9% (plus) 50 ML 100 MG IV ×3 (01:40→17:59)
[2023-09-03] MEDS: tranexamic acid 1,000 MG/100 ML PREMIX 600 MG IV (02:12)
[2023-09-03] MEDS: ondansetron 2 mg/ML SDV 2 mL 4 MG IVP (02:21)
[2023-09-03 05:07] LABS: Basophils % 0.3 %; Eosinophils % 0.5 %; Hematocrit 23.6 % (36-47); Lymphocytes # 0.4 10^3/uL (0.8-4.8); Lymphocytes % 6.3 %; Mean Corpuscular HGB Conc 30.1 g/dL (30-55); Mean Corpuscular Hemoglobin 27.2 pg (27-33); Mean Corpuscular Volume 90.4 fl (85-98); Mean Platelet Volume 11.8 fL (7.4-10.4); Monocytes # 0.7 10^3/uL (0.2-0.9); Monocytes % 11.9 %; Neutrophils # 4.62 10^3/uL (1.8-7.7); Neutrophils % 80.8 %; Nucleated Red Blood Cells # 0.1 /100WBC; Nucleated Red Blood Cells % 0.9 %; Platelet Count 184 10^3/cmm (157-399); Red Blood Count 2.61 10^6/uL (3.85-5.65); Red Cell Distribution Width 14.8 % (12.1-15.1); White Blood Count 5.72 10^3/uL (3.29-11.43)
[2023-09-03 05:31] LABS: Anion Gap 14.3 (5-19); Blood Urea Nitrogen 26 mg/dL (8-23); Calcium 7.4 mg/dL (8.5-10.5); Carbon Dioxide 24 mmol/L (22-29); Chloride 110 mmol/L (98-107); Creatinine Clr Calc Pharmacy 34.3052; Glucose 194 mg/dL (65-115); Osmolality Calculated 308 mOsm/kg (285-295); Potassium 4.3 mmol/L (3.5-5.1); Sodium 144 mmol/L (136-145)
[2023-09-03 08:32] LABS: Glucose Point of Care 194 mg/dL (70-110)
[2023-09-03] MEDS: multivitamin therapeutic Tablet 1 TAB PO (08:56)
[2023-09-03] MEDS: HYDROmorphone 1 mg/mL INJ 1 mL 0.5 MG IVP (08:56)
[2023-09-03] MEDS: mupirocin oint 22 gm 1 APPLIC NASAL ×2 (08:56→18:00)
[2023-09-03] MEDS: iron polysaccharide complex 150 mg Capsule PO ×2 (08:56→17:59)
[2023-09-03] MEDS: docusate sodium 100 mg Capsule PO ×2 (08:56→17:59)
[2023-09-03] MEDS: calcium carb-vit d 600mg/400unit 1 Tablet 1 EACH PO ×2 (08:57→17:59)
[2023-09-03] MEDS: insulin lispro 100 unit/1 mL SUBCUT ×2 (09:04→17:59)
[2023-09-03] MEDS: chlorhexidine gluconate 0.12% Btl 473 mL 30 ML MUCOUS MEM (09:19)
--- NOTE | 2023-09-03 09:49 | P.PN_ITS ---
Subjective 2 Subjective: Patient is 1 day postop left hip fracture ORIF. No acute events overnight. Physical therapy came and worked with patient this morning and physical therapist said pt was't able to do much and needed full assistance. She is able to keep PO fluids down. pain is controlled. No fevers. Vitals/I&O/Wt Last Vital Signs Temp 98.8 F 09/03/23 08:00 Pulse 82 09/03/23 09:02 Resp 16 09/03/23 09:02 BP 99/45 09/03/23 08:00 Pulse Ox 99 09/03/23 09:02 O2 Del Method Nasal Cannula 09/03/23 09:02 O2 Flow Rate 3 09/03/23 09:02 09/02/23 09/03/23 09/03/23 22:59 06:59 14:59 Intake Total 1200 / 1200 1300 / 2500 Output Total 400 / 400 375 / 775 Balance 800 / 800 925 / 1725 Weight last 48 hrs Weight 121 lb 8 oz Weight 109 lb Weight 109 lb Physical Exam 2 Const: COMMON NORMALS: no acute distress and alert Resp: COMMON NORMALS: normal respiratory effort and No retractions Cardio: COMMON NORMALS: Peripheral pulses 2+ throughout PERIPHERAL PULSES: Peripheral pulses 2+ throughout Extremity: NARRATIVE EXTREMITY EXAM: Exam limited due to patient being very somnolent. She is able to wake up and give some responses when prompted. Left hip-surgical dressing (Silverlon dressing) is dry and intact. Tissue under dressing is soft and no hematoma. pedal pulse 1+, toes are warm and well perfused. normal cap refill under 2 seconds. pt could perform dorsiflexion and plantarflexion. Neuro: SENSORIUM/ORIENTATION: Yes alert Skin: GENERAL SKIN EXAM: dry skin Urinary Catheter Management: Bowden: Cath Placed During This Visit: yes Reason for Continuing Indwelling Catheter: Required Immobilization for Trauma or Surgery or Anesthesia Urinary Catheter Date of Insertion: 09/02/23 Urinary Catheter Time of Insertion: 02:00 Data 09/03/23 04:49 09/03/23 04:49 Xray Ortho: Radiologist's impression: PROCEDURE INFORMATION: Exam: XR Left Femur Exam date and time: 09/02/2023 11:24 PM Age: 83 years old Clinical indication: Other: Post op; Prior surgery; Surgery date: Post-operative (0-2 days); Surgery type: Lt femur orif; Additional info: Post op lt total femoral nailing. TECHNIQUE: Imaging protocol: Radiologic exam of the left femur. Views: 2 views. COMPARISON: OT XR femur LT min 2V* [id number] 09/02/2023 8:00 PM FINDINGS: Bones/joints: Comminuted intertrochanteric fracture proximal left femur and oblique fracture of the left femoral shaft are again identified. There are findings of open reduction internal fixation with metallic hardware including an intramedullary palomo. There is some residual displacement of the lesser trochanter. The other fragments are in anatomic alignment. Soft tissues: There is some air in the soft tissues from the recent surgery. XR/XR femur LT min 2V* [id number] IMPRESSION: Left femur fractures status post open reduction and internal fixation with metallic hardware. Dictated By: Narinder Kumari Signed By: Narinder Kumari Signed Date/Time: 09/03/23 0137 DD/ 2324 A&P Assessment and plan (1) Closed intertrochanteric fracture of left hip: Qualifiers: Encounter type: initial encounter Fracture alignment: displaced Qualified Code(s): S72.142A - Displaced intertrochanteric fracture of left femur, initial encounter for closed fracture Plan Plan: -Imaging and Labs reviewed-Hgb 7.1 -Hospitalist on board for medical management. -VTE prophylaxis -weightbear as tolerated -Pain control -PT/OT Ortho will continue following and we will reevaluate tomorrow. Attestations 2 Medical Necessity Statement*: Ongoing care for Left Hip Fracture Coding Level of Care Code Acute Code for Chg Fwd Diagnoses Closed intertrochanteric fracture of left hip S72.142A Encounter type: initial encounter Fracture alignment: displaced
[2023-09-03] MEDS: enoxaparin 30 mg/0.3 mL Syringe SUBCUT (10:18)
[2023-09-03 11:12] LABS: Glucose Point of Care 129 mg/dL (70-110)
[2023-09-03] MEDS: lactulose oral liq 20 gm/30 mL UDC PO (13:26)
--- NOTE | 2023-09-03 13:31 | P.PN_ITS ---
Subjective 2 Subjective: seen this morning hb 7.1 this morning Vitals/I&O/Wt Last Vital Signs Temp 98.8 F 09/03/23 08:00 Pulse 82 09/03/23 09:02 Resp 16 09/03/23 09:02 BP 102/56 09/03/23 12:18 Pulse Ox 99 09/03/23 09:02 O2 Del Method Nasal Cannula 09/03/23 09:02 O2 Flow Rate 3 09/03/23 09:02 09/02/23 09/03/23 09/03/23 22:59 06:59 14:59 Intake Total 1200 / 1200 1300 / 2500 290 / 290 Output Total 400 / 400 375 / 775 Balance 800 / 800 925 / 1725 290 / 290 Weight last 48 hrs Weight 55.111 kg Weight 49.442 kg Weight 49.442 kg Physical Exam 2 Const: COMMON NORMALS: patient oriented x3 and alert GENERAL APPEARANCE: c ooperative ORIENTATION/CONSCIOUSNESS: Yes awake HENMT: COMMON NORMALS: oropharynx normal Neck/C-Spine: COMMON NORMALS: no JVD Resp: COMMON NORMALS: normal respiratory effort and clear to auscultation bilaterally AUSCULTATION: clear to auscultation bilaterally Cardio: COMMON NORMALS: no JVD, regular rhythm, S1 normal heart sound present, S2 normal heart sound present and No murmurs present (Cardio) RHYTHM: regular rhythm HEART SOUNDS: S1 normal heart sound present and S2 normal heart sound present GI: COMMON NORMALS: Normal to inspection, nondistended, normoactive bowel sounds present, Soft to palpation and non-tender PALPATION: Yes Soft to palpation Extremity: COMMON NORMALS: no joint enlargement and no pedal edema OTHER: no edema present Neuro: COMMON NORMALS: patient oriented x3 and moves all extremities S ENSORIUM/ORIENTATION: Yes alert Skin: COMMON NORMALS: no rashes or lesions noted GENERAL SKIN EXAM: no rashes or lesions noted OTHER: 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 Urinary Catheter Management: Bowden: Cath Placed During This Visit: yes Reason for Continuing Indwelling Catheter: Required Immobilization for Trauma or Surgery or Anesthesia Urinary Catheter Date of Insertion: 09/02/23 Urinary Catheter Time of Insertion: 02:00 Data 09/03/23 04:49 09/03/23 04:49 A&P Assessment and plan (1) Closed intertrochanteric fracture of left hip: Early after slipping and falling at home. Does appear to have UTI, question whether contributed to the fall. Angulated impacted intertrochanteric left hip fracture. Reviewed vitals, CBC, INR, CMP, UA, hip and pelvis x-ray, femur x- ray, chest x-ray, ER note, discussed with ER provider. Pending orthopedic assessment, she wants to pursue surgical intervention to repair the hip, resume mobility. Discussed with her some increasing the risk from surgery due to her age, smoking, comorbidities. Baseline EKG obtained, reviewed. On my interpretation without suggestion of acute MO or ischemia. Appears may have a Q wave in V2. Monitor on telemetry. NPO. SCD for VTE prophylaxis, 1 dose of heparin in anticipation of surgical intervention. Consultation with PT, case management. Received IV fentanyl in ER. Continue Tylenol for any mild pain, IV morphine for breakthrough. Qualifiers: Encounter type: initial encounter Fracture alignment: displaced Qualified Code(s): S72.142A - Displaced intertrochanteric fracture of left femur, initial encounter for closed fracture (2) UTI (urinary tract infection): Question whether UTI contributed to her fall, but does have 15-25, stable cells on UA. Empiric ceftriaxone for now, requesting urine culture. De-escalating case with no growth. (3) Smoking addiction: Discussed with her smoking cessation for 4 minutes, continue to encourage cessation. Nicotine replacement as needed. (4) Fall: Additional management of hip fracture as above. Additional assessment for possible UTI as above. PT assessment. Qualifiers: Encounter type: initial encounter Qualified Code(s): W19.XXXA - Unspecified fall, initial encounter Plan FLAKITO: Possible mild FLAKITO versus CKD, baseline unknown, creatinine noted 1.2. Avoid NSAIDs, other nephrotoxins. Emphysema: Incidentally noted on CT. She is doing well on room air. Encourage smoking cessation. Follow-up with PCP, consider PFT if symptomatic. History of stroke: Resume aspirin after surgery. Continue statin DM2: Monitor Accu-Cheks, sliding scale started. CC diet once resumed. #Acute anemia, most likely postop - hb 7.1 -Packed RBC 1 unit ordered this morning ? Recheck CBC 2 hours posttransfusion ? Constipation ? Patient requesting a laxative. Will order lactulose 20 g x 1 Attestations 2 Medical Necessity Statement*: Admission over 2 midnights anticipated for assessment management of angulated impacted intertrochanteric left hip fracture. Diagnoses Closed intertrochanteric fracture of left hip S72.142A Encounter type: initial encounter Fracture alignment: displaced UTI (urinary tract infection) N39.0 Smoking addiction F17.200 Fall W19.XXXA Encounter type: initial encounter
[2023-09-03 17:23] LABS: Glucose Point of Care 210 mg/dL (70-110)
[2023-09-03 21:29] LABS: Glucose Point of Care 89 mg/dL (70-110)
[2023-09-04] VITALS (11 sets, daily range): BP systolic 106–134; BP diastolic 36–62; PULSE 73–97; RESP 15–19; TEMP 36.2–37.1; O2SAT 91–98; BMI 17.8
[2023-09-04 00:40] LABS: Glucose Point of Care 155 mg/dL (70-110)
[2023-09-04 05:02] LABS: Basophils % 0.1 %; Eosinophils # 0.1 10^3/uL (0.0-0.8); Eosinophils % 1.1 %; Hematocrit 24.7 % (36-47); Lymphocytes # 0.7 10^3/uL (0.8-4.8); Lymphocytes % 7.8 %; Mean Corpuscular HGB Conc 32.8 g/dL (30-55); Mean Corpuscular Hemoglobin 28.1 pg (27-33); Mean Corpuscular Volume 85.8 fl (85-98); Mean Platelet Volume 11.4 fL (7.4-10.4); Monocytes # 0.5 10^3/uL (0.2-0.9); Monocytes % 5.9 %; Neutrophils # 7.52 10^3/uL (1.8-7.7); Neutrophils % 84.6 %; Nucleated Red Blood Cells % 0 %; Platelet Count 199 10^3/cmm (157-399); Red Blood Count 2.88 10^6/uL (3.85-5.65); Red Cell Distribution Width 14.8 % (12.1-15.1); White Blood Count 8.88 10^3/uL (3.29-11.43)
[2023-09-04 05:30] LABS: Anion Gap 11.2 (5-19); Blood Urea Nitrogen 30 mg/dL (8-23); Calcium 8.1 mg/dL (8.5-10.5); Carbon Dioxide 24 mmol/L (22-29); Chloride 104 mmol/L (98-107); Creatinine Clr Calc Pharmacy 41.9286; Glucose 154 mg/dL (65-115); Osmolality Calculated 289 mOsm/kg (285-295); Potassium 4.2 mmol/L (3.5-5.1); Sodium 135 mmol/L (136-145)
[2023-09-04 07:24] LABS: Glucose Point of Care 201 mg/dL (70-110)
--- NOTE | 2023-09-04 07:48 | ANE.PACU2 ---
Inpatient post-anesthesia follow up: Airway intact: Yes Vital signs: Temperature 98.7 F Pulse Rate 89 Respiratory Rate 16 Blood Pressure 106/51 Pulse Oximetry 91 Oxygen Delivery Me thod Room Air Oxygen Flow Rate 3 Fraction of Inspir ed Oxygen Hydration adequate: Yes Nausea and vomiting: No Pain level: 2 Mental status: Baseline Additional Comments: Stable PACU recovery
[2023-09-04] MEDS: calcium carb-vit d 600mg/400unit 1 Tablet 1 EACH PO ×2 (08:33→17:43)
[2023-09-04] MEDS: oxyCODONE 5 mg IR Tab/Cap PO ×2 (08:33→17:43)
[2023-09-04] MEDS: docusate sodium 100 mg Capsule PO ×2 (08:33→17:43)
[2023-09-04] MEDS: multivitamin therapeutic Tablet 1 TAB PO (08:33)
[2023-09-04] MEDS: insulin lispro 100 unit/1 mL SUBCUT ×4 (08:33→21:46)
[2023-09-04] MEDS: iron polysaccharide complex 150 mg Capsule PO ×2 (08:35→17:43)
[2023-09-04] MEDS: chlorhexidine gluconate 0.12% Btl 473 mL 30 ML MUCOUS MEM ×2 (08:38→17:43)
--- NOTE | 2023-09-04 09:38 | P.PN_ITS ---
Subjective 2 Subjective: Hemoglobin 8.10 today patient was given 1 unit packed RBC yesterday. Seen while working with physical therapy. Patient able to stand up with assistance. Able to look to her right and/or left strength upper and lower extremities pretty equal 3-4 out of 5 upper extremities. 3/ 5 lower extremities. Symmetrical strength. No focal deficits. Patient is legally blind. Carries a history of macular degeneration. Does not have a neglect to 1 side Face symmetrical, no slurred speech Difficult to test for cranial nerves as patient has very low vision. Follows commands and answers questions appropriately. No focal deficits as such. Says she lives alone at home and has a friend Susan who we can talk to in case needed if she is unable to speak for herself. Does not have any other family. Does have a living niece however does not want her niece contacted. Would like us to Dr. Davis if needed. Vitals/I&O/Wt Last Vital Signs Temp 97.2 F L 09/04/23 09:18 Pulse 88 09/04/23 09:18 Resp 18 09/04/23 09:18 BP 113/36 09/04/23 09:18 Pulse Ox 92 09/04/23 09:18 O2 Del Method Room Air 09/04/23 09:18 O2 Flow Rate 3 09/03/23 09:02 09/03/23 09/04/23 09/04/23 22:59 06:59 14:59 Intake Total 540 / 830 50 / 880 120 / 120 Balance 540 / 830 50 / 880 120 / 120 Weight last 48 hrs Weight 56.291 kg Weight 55.111 kg Physical Exam 2 Const: COMMON NORMALS: patient oriented x3 and alert GENERAL APPEARANCE: c ooperative ORIENTATION/CONSCIOUSNESS: Yes awake HENMT: COMMON NORMALS: oropharynx normal Neck/C-Spine: COMMON NORMALS: no JVD Resp: COMMON NORMALS: normal respiratory effort and clear to auscultation bilaterally AUSCULTATION: clear to auscultation bilaterally Cardio: COMMON NORMALS: no JVD, regular rhythm, S1 normal heart sound present, S2 normal heart sound present and No murmurs present (Cardio) RHYTHM: regular rhythm HEART SOUNDS: S1 normal heart sound present and S2 normal heart sound present GI: COMMON NORMALS: Normal to inspection, nondistended, normoactive bowel sounds present, Soft to palpation and non-tender PALPATION: Yes Soft to palpation Extremity: COMMON NORMALS: no joint enlargement and no pedal edema OTHER: no edema present Neuro: COMMON NORMALS: patient oriented x3 and moves all extremities S ENSORIUM/ORIENTATION: Yes alert Skin: COMMON NORMALS: no rashes or lesions noted GENERAL SKIN EXAM: no rashes or lesions noted OTHER: 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 Urinary Catheter Management: Bowden: Cath Placed During This Visit: yes, but has since been removed by the nurse Reason for Continuing Indwelling Catheter: Required Immobilization for Trauma or Surgery or Anesthesia Urinary Catheter Date of Insertion: 09/02/23 Urinary Catheter Time of Insertion: 02:00 Date Urinary Catheter Removed: 09/04/23 Time Urinary Catheter Discontinued: 06:10 Data 09/04/23 04:45 09/04/23 04:45 A&P Assessment and plan (1) Closed intertrochanteric fracture of left hip: Early after slipping and falling at home. Does appear to have UTI, question whether contributed to the fall. Angulated impacted intertrochanteric left hip fracture. Reviewed vitals, CBC, INR, CMP, UA, hip and pelvis x-ray, femur x- ray, chest x-ray, ER note, discussed with ER provider. Pending orthopedic assessment, she wants to pursue surgical intervention to repair the hip, resume mobility. Discussed with her some increasing the risk from surgery due to her age, smoking, comorbidities. Baseline EKG obtained, reviewed. On my interpretation without suggestion of acute TX or ischemia. Appears may have a Q wave in V2. Monitor on telemetry. NPO. SCD for VTE prophylaxis, 1 dose of heparin in anticipation of surgical intervention. Consultation with PT, case management. Received IV fentanyl in ER. Continue Tylenol for any mild pain, IV morphine for breakthrough. Qualifiers: Encounter type: initial encounter Fracture alignment: displaced Qualified Code(s): S72.142A - Displaced intertrochanteric fracture of left femur, initial encounter for closed fracture (2) UTI (urinary tract infection): Question whether UTI contributed to her fall, but does have 15-25, stable cells on UA. Empiric ceftriaxone for now, requesting urine culture. De-escalating case with no growth. (3) Smoking addiction: Discussed with her smoking cessation for 4 minutes, continue to encourage cessation. Nicotine replacement as needed. (4) Fall: Additional management of hip fracture as above. Additional assessment for possible UTI as above. PT assessment. Qualifiers: Encounter type: initial encounter Qualified Code(s): W19.XXXA - Unspecified fall, initial encounter Plan FLAKITO: Possible mild FLAKITO versus CKD, baseline unknown, creatinine noted 1.2. Avoid NSAIDs, other nephrotoxins. Emphysema: Incidentally noted on CT. She is doing well on room air. Encourage smoking cessation. Follow-up with PCP, consider PFT if symptomatic. History of stroke: Resume aspirin after surgery. Continue statin DM2: Monitor Accu-Cheks, sliding scale started. CC diet once resumed. #Acute anemia, most likely postop - hb 7.1 -Status post 1 unit packed RBC Hemoglobin this morning 8.1 ? Recheck Hb every 12 hours for now. ? Continue oral iron Constipation ? Patient requesting a laxative. Lactulose ordered yesterday. ? Placed on docusate senna 1 tablet twice daily. UTI ? Urine culture grew mixed mauro. ? Patient currently on ceftriaxone. ? Also received cefazolin intraoperatively. Disposition: Patient working with physical therapy however significantly weak and would benefit [facility] jail facility for [facility]hab at discharge. She is a max assist at this time. Occupational Therapy evaluation also ordered. Patient will require higher level of assistance and 24-hour care. She is not safe for return home at this time. Attestations 2 Medical Necessity Statement*: Admission over 2 midnights anticipated for assessment management of angulated impacted intertrochanteric left hip fracture. Diagnoses Closed intertrochanteric fracture of left hip S72.142A Encounter type: initial encounter Fracture alignment: displaced UTI (urinary tract infection) N39.0 Smoking addiction F17.200 Fall W19.XXXA Encounter type: initial encounter
--- NOTE | 2023-09-04 09:44 | P.PN_ITS ---
<Statement entered by Santosh Mills DO - 09/04/23 10:04> Patient seen and examined as well as PA, agree with PAs assessment and plan. At this point in time patient hemoglobin is responded to PRBC transfusion per hospitalist. She is much more awake and alert today. Dressings are clean dry and intact. Gross motor and sensory is intact distally. Distal pulses are palpable. Recommend patient continue to work with therapy. Anticipate she will likely need discharge to rehab facility for therapy to regain strength that she lives at home by herself. Patient understands agrees to current plan. Questions answered. Santosh Mills DO Orthopedic surgery Subjective 2 Subjective: Pt is 2 days post op left hip fracture ORIF with Trochanter (long) nail. Pt is alert and oriented today. She is able to answer all my questions accordingly. no acute events overnight. pain is controlled. Vitals/I&O/Wt Last Vital Signs Temp 97.2 F L 09/04/23 09:18 Pulse 88 09/04/23 09:18 Resp 18 09/04/23 09:18 BP 113/36 09/04/23 09:18 Pulse Ox 92 09/04/23 09:18 O2 Del Method Room Air 09/04/23 09:18 O2 Flow Rate 3 09/03/23 09:02 09/03/23 09/04/23 09/04/23 22:59 06:59 14:59 Intake Total 540 / 830 50 / 880 120 / 120 Balance 540 / 830 50 / 880 120 / 120 Weight last 48 hrs Weight 124 lb 1.6 oz Weight 121 lb 8 oz Physical Exam 2 Narrative: Pt is alert and oriented today. She is able to answer all my questions accordingly. Const: COMMON NORMALS: no acute distress and alert Resp: COMMON NORMALS: normal respiratory effort and No retractions Cardio: COMMON NORMALS: Peripheral pulses 2+ throughout PERIPHERAL PULSES: Peripheral pulses 2+ throughout Extremity: NARRATIVE EXTREMITY EXAM: Left hip-surgical dressing (Silverlon dressing) is dry and intact. Tissue under dressing is soft and no hematoma. pedal pulse 1+, toes are warm and well perfused. normal cap refill under 2 seconds. pt could perform dorsiflexion and plantarflexion. she can wiggle toes. unable to perform straight leg raise due to pain. Neuro: SENSORIUM/ORIENTATION: Yes alert Skin: GENERAL SKIN EXAM: dry skin Data 09/04/23 04:45 09/04/23 04:45 A&P Assessment and plan (1) Closed intertrochanteric fracture of left hip: Qualifiers: Encounter type: initial encounter Fracture alignment: displaced Qualified Code(s): S72.142A - Displaced intertrochanteric fracture of left femur, initial encounter for closed fracture Plan Plan: -Imaging and Labs reviewed-Hgb has gone up after transfusion of RBC- 8.1 -Hospitalist on board for medical management. -VTE prophylaxis -weightbear as tolerated -Pain control -PT/OT Ortho will continue following and we will reevaluate tomorrow. Attestations 2 Medical Necessity Statement*: Ongoing care for Left Hip fracture Coding Level of Care Code Acute Code for Chg Fwd Diagnoses Closed intertrochanteric fracture of left hip S72.142A Encounter type: initial encounter Fracture alignment: displaced
[2023-09-04] MEDS: enoxaparin 30 mg/0.3 mL Syringe SUBCUT (10:08)
[2023-09-04 11:43] LABS: Glucose Point of Care 146 mg/dL (70-110)
[2023-09-04 14:42] LABS: Basophils % 0.2 %; Eosinophils # 0.2 10^3/uL (0.0-0.8); Eosinophils % 1.3 %; Hematocrit 26.5 % (36-47); Lymphocytes # 0.9 10^3/uL (0.8-4.8); Lymphocytes % 7.3 %; Mean Corpuscular HGB Conc 32.5 g/dL (30-55); Mean Corpuscular Hemoglobin 28.4 pg (27-33); Mean Corpuscular Volume 87.5 fl (85-98); Mean Platelet Volume 11.1 fL (7.4-10.4); Monocytes # 0.7 10^3/uL (0.2-0.9); Monocytes % 6.1 %; Neutrophils # 10.26 10^3/uL (1.8-7.7); Neutrophils % 84.4 %; Nucleated Red Blood Cells % 0.3 %; Platelet Count 240 10^3/cmm (157-399); Red Blood Count 3.03 10^6/uL (3.85-5.65); White Blood Count 12.16 10^3/uL (3.29-11.43)
[2023-09-04 16:15] LABS: Glucose Point of Care 221 mg/dL (70-110)
[2023-09-04] MEDS: mupirocin oint 22 gm 1 APPLIC NASAL (17:43)
[2023-09-04 20:37] LABS: Glucose Point of Care 194 mg/dL (70-110)
[2023-09-05] VITALS (7 sets, daily range): BP systolic 107–158; BP diastolic 53–60; PULSE 80–106; RESP 16–20; TEMP 36.2–37.2; O2SAT 93–97
[2023-09-05] MEDS: cefTRIAXone 1,000 MG in sodium chloride 0.9% (plus) 50 ML 100 MG IV (00:03)
[2023-09-05 01:30] LABS: Basophils % 0.1 %; Eosinophils # 0.1 10^3/uL (0.0-0.8); Eosinophils % 1.2 %; Lymphocytes # 0.5 10^3/uL (0.8-4.8); Lymphocytes % 4.4 %; Mean Corpuscular HGB Conc 32.8 g/dL (30-55); Mean Corpuscular Hemoglobin 28.1 pg (27-33); Mean Corpuscular Volume 85.6 fl (85-98); Mean Platelet Volume 11.1 fL (7.4-10.4); Monocytes # 0.4 10^3/uL (0.2-0.9); Neutrophils # 9.41 10^3/uL (1.8-7.7); Neutrophils % 89.5 %; Nucleated Red Blood Cells % 0.2 %; Platelet Count 242 10^3/cmm (157-399); Red Blood Count 2.92 10^6/uL (3.85-5.65); White Blood Count 10.51 10^3/uL (3.29-11.43)
[2023-09-05 01:45] LABS: Anion Gap 12.8 (5-19); Blood Urea Nitrogen 28 mg/dL (8-23); Calcium 8.4 mg/dL (8.5-10.5); Carbon Dioxide 25 mmol/L (22-29); Chloride 101 mmol/L (98-107); Creatinine Clr Calc Pharmacy 42.8263; Glucose 59 mg/dL (65-115); Osmolality Calculated 283 mOsm/kg (285-295); Potassium 3.8 mmol/L (3.5-5.1); Sodium 135 mmol/L (136-145)
[2023-09-05 01:53] LABS: Magnesium 2.1 mg/dL (1.7-2.3)
[2023-09-05 06:18] LABS: Glucose Point of Care 158 mg/dL (70-110)
--- NOTE | 2023-09-05 06:39 | PC.NURSE ---
Per bladder scan pt was retaining 320 mLs of urine; notified Dr. Mcleod and he advised to straight cath. We got 310 mLs out upon straight cath. Pt tolerated well.
[2023-09-05] MEDS: docusate sodium 100 mg Capsule PO ×2 (08:18→17:44)
[2023-09-05] MEDS: calcium carb-vit d 600mg/400unit 1 Tablet 1 EACH PO ×2 (08:18→17:44)
[2023-09-05] MEDS: iron polysaccharide complex 150 mg Capsule PO ×2 (08:18→17:44)
[2023-09-05] MEDS: multivitamin therapeutic Tablet 1 TAB PO (08:18)
[2023-09-05] MEDS: insulin lispro 100 unit/1 mL SUBCUT ×2 (08:18→17:44)
[2023-09-05] MEDS: mupirocin oint 22 gm 1 APPLIC NASAL ×2 (08:19→17:47)
[2023-09-05] MEDS: chlorhexidine gluconate 0.12% Btl 473 mL 30 ML MUCOUS MEM ×4 (08:19→21:35)
[2023-09-05] MEDS: enoxaparin 40 mg/0.4 mL Syringe SUBCUT (10:16)
[2023-09-05 10:57] LABS: Glucose Point of Care 263 mg/dL (70-110)
--- NOTE | 2023-09-05 11:31 | PC.SOCIAL ---
IMM Update pg 2 of IMM updated and reviewed w/ patient. Copy provided and copy dated, initialed and placed in chart.
[2023-09-05 13:08] LABS: Iron 8 ug/dL (37-145); Total Iron Binding Capacity 197 mcg/dl; Unsaturated Iron Binding 189 ug/dL (112-347); Vitamin B12 170 pg/mL (232-1245)
--- NOTE | 2023-09-05 16:10 | P.PN_ITS ---
Subjective 2 Subjective: Hospital course, labs appreciated. Patient sitting comfortably in chair today. Denies any nausea, vomiting, headache. States she is fairly well and does not have any new complaints. Vitals/I&O/Wt Last Vital Signs Temp 97.8 F 09/05/23 11:59 Pulse 96 09/05/23 11:59 Resp 18 09/05/23 11:59 BP 149/60 09/05/23 11:59 Pulse Ox 95 09/05/23 11:59 O2 Del Method Room Air 09/05/23 08:00 O2 Flow Rate 3 09/03/23 09:02 09/05/23 09/05/23 09/05/23 06:59 14:59 22:59 Intake Total 170 / 1250 240 / 240 Output Total 310 / 685 Balance -140 / 565 240 / 240 Weight last 48 hrs Weight 52.73 kg Weight 56.291 kg Physical Exam 2 Const: COMMON NORMALS: patient oriented x3 and alert GENERAL APPEARANCE: c ooperative ORIENTATION/CONSCIOUSNESS: Yes awake HENMT: COMMON NORMALS: oropharynx normal Neck/C-Spine: COMMON NORMALS: no JVD Resp: COMMON NORMALS: normal respiratory effort and clear to auscultation bilaterally AUSCULTATION: clear to auscultation bilaterally Cardio: COMMON NORMALS: no JVD, regular rhythm, S1 normal heart sound present, S2 normal heart sound present and No murmurs present (Cardio) RHYTHM: regular rhythm HEART SOUNDS: S1 normal heart sound present and S2 normal heart sound present GI: COMMON NORMALS: Normal to inspection, nondistended, normoactive bowel sounds present, Soft to palpation and non-tender PALPATION: Yes Soft to palpation Extremity: COMMON NORMALS: no joint enlargement and no pedal edema OTHER: no edema present Neuro: COMMON NORMALS: patient oriented x3 and moves all extremities S ENSORIUM/ORIENTATION: Yes alert Skin: COMMON NORMALS: no rashes or lesions noted GENERAL SKIN EXAM: no rashes or lesions noted OTHER: 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 Urinary Catheter Management: Bowden: Cath Placed During This Visit: yes, but has since been removed by the nurse Reason for Continuing Indwelling Catheter: Required Immobilization for Trauma or Surgery or Anesthesia Urinary Catheter Date of Insertion: 09/02/23 Urinary Catheter Time of Insertion: 02:00 Date Urinary Catheter Removed: 09/04/23 Time Urinary Catheter Discontinued: 06:10 Data 09/05/23 01:15 09/05/23 01:15 Micro: Microbiology 09/01/23 21:37 Urine Culture - Final Urine,Clean Catch A&P Assessment and plan (1) Closed intertrochanteric fracture of left hip: Post-ORIF?09/01. Continue with physical therapy. Did have postoperative anemia. Hemoglobin stable now. Check iron panel. Continue with oral iron supplementation. Will start on IV iron supplementation as per iron studies. Continue with current pain management. Hold off on further IV pain medications. Qualifiers: Encounter type: initial encounter Fracture alignment: displaced Qualified Code(s): S72.142A - Displaced intertrochanteric fracture of left femur, initial encounter for closed fracture (2) UTI (urinary tract infection): Continue with IV ceftriaxone. Follow-up urine culture. Will plan to finish antibiotic course for UTI for overall 5 days. Day 4/5 today. (3) Smoking addiction: Discussed with her smoking cessation for 4 minutes, continue to encourage cessation. Nicotine replacement as needed. (4) Fall: Additional management of hip fracture as above. Additional assessment for possible UTI as above. PT assessment. Qualifiers: Encounter type: initial encounter Qualified Code(s): W19.XXXA - Unspecified fall, initial encounter Plan FLAKITO: Resolved. Most likely in setting of postoperative status. Monitor daily for now. Type 2 diabetes mellitus: Hyperglycemia in the morning today. Change insulin sliding scale to AC. Hold off on nightly insulin. Check A1c. Restart home dose of levothyroxine. Patient has not received levothyroxine since admission. Check TSH. Discharge plan: Patient has been accepted to SNF. Awaiting authorization. Plan to discharge in next 24 hours. Full code Carb consistent diet Famotidine for PUD prophylaxis SCDs for DVT prophylaxis. Not on medical prophylaxis given anemia postoperatively. Attestations 2 Medical Necessity Statement*: Requires further hospitalization for management of postoperative care for post- ORIF while safe discharge planning is sought. and Moderate Time for a total of 60 minutes, includes reviewing past or interval history, examining/interviewing patient, placing orders, counseling patient/family/other support, updating patient/family/other support, discussing plan of care with staff, communicating with other healthcare providers, documenting encounter and coordinating care Diagnoses Closed intertrochanteric fracture of left hip S72.142A Encounter type: initial encounter Fracture alignment: displaced UTI (urinary tract infection) N39.0 Smoking addiction F17.200 Fall W19.XXXA Encounter type: initial encounter
[2023-09-05 17:05] LABS: Thyroid Stimulating Hormone 0.82 uIU/mL (0.27-4.20)
[2023-09-05 17:22] LABS: Glucose Point of Care 247 mg/dL (70-110)
[2023-09-05] MEDS: iron sucrose 200 MG in sodium chloride 0.9% (100 ml) 100 ML 220 MG IV (17:44)
--- NOTE | 2023-09-05 19:02 | P.PN_ITS ---
<Statement entered by Santosh Mills DO - 09/05/23 21:53> Agree with PAs assessment and plan. Saw patient this evening she is recovering well labs reviewed. At this point time she stable from orthopedic standpoint okay to discharge. Discharge instructions as well as medications will be in chart. Patient will follow-up with the orthopedic office in 2 weeks for repeat x-rays and staple removal. All questions answered. Santosh Mills DO Subjective 2 Subjective: Pt is 3 days post op left hip fracture ORIF with Trochanter (long) nail. Pt is alert and oriented today. She is able to answer all my questions accordingly. no acute events overnight. pain is controlled. Spoke with nurse and she got up with PT today but was max assist. Vitals/I&O/Wt Last Vital Signs Temp 98.7 F 09/05/23 16:00 Pulse 95 09/05/23 16:00 Resp 16 09/05/23 16:00 BP 137/53 09/05/23 16:00 Pulse Ox 97 09/05/23 16:00 O2 Del Method Room Air 09/05/23 08:00 O2 Flow Rate 3 09/03/23 09:02 09/05/23 09/05/23 09/05/23 06:59 14:59 22:59 Intake Total 170 / 1250 480 / 480 240 / 720 Output Total 310 / 685 Balance -140 / 565 480 / 480 240 / 720 Weight last 48 hrs Weight 116 lb 4 oz Weight 124 lb 1.6 oz Physical Exam 2 Narrative: Pt is alert and oriented today. She is able to answer all my questions accordingly. Const: COMMON NORMALS: no acute distress and alert Resp: COMMON NORMALS: normal respiratory effort and No retractions Cardio: COMMON NORMALS: Peripheral pulses 2+ throughout PERIPHERAL PULSES: Peripheral pulses 2+ throughout Extremity: NARRATIVE EXTREMITY EXAM: Left hip-surgical dressing (Silverlon dressing) is dry and intact. Tissue under dressing is soft and no hematoma. pedal pulse 1+, toes are warm and well perfused. normal cap refill under 2 seconds. pt could perform dorsiflexion and plantarflexion. she can wiggle toes. unable to perform straight leg raise due to pain. Neuro: SENSORIUM/ORIENTATION: Yes alert Skin: GENERAL SKIN EXAM: dry skin Urinary Catheter Management: Bowden: Cath Placed During This Visit: yes, but has since been removed by the nurse Reason for Continuing Indwelling Catheter: Required Immobilization for Trauma or Surgery or Anesthesia Urinary Catheter Date of Insertion: 09/02/23 Urinary Catheter Time of Insertion: 02:00 Date Urinary Catheter Removed: 09/04/23 Time Urinary Catheter Discontinued: 06:10 Data 09/05/23 01:15 09/05/23 01:15 Micro: Microbiology 09/01/23 21:37 Urine Culture - Final Urine,Clean Catch A&P Assessment and plan (1) Closed intertrochanteric fracture of left hip: Qualifiers: Encounter type: initial encounter Fracture alignment: displaced Qualified Code(s): S72.142A - Displaced intertrochanteric fracture of left femur, initial encounter for closed fracture Plan Plan: -Imaging and Labs reviewed- Hgb 8.2 -Hospitalist on board for medical management. -VTE prophylaxis -weightbear as tolerated -Pain control -PT/OT Patient is cleared for discharge home from an orthopedic standpoint. Patient scheduled with a 2-week postop follow-up appointment at orthopedic clinic. Pt will be discharged home with lovenox prescription for post op blood clot prevention. Attestations 2 Medical Necessity Statement*: Ongoing care for left hip fracture Coding Level of Care Code Acute Code for Chg Fwd Diagnoses Closed intertrochanteric fracture of left hip S72.142A Encounter type: initial encounter Fracture alignment: displaced
--- NOTE | 2023-09-05 19:07 | PC.NURSE ---
pt bladder scanned 211 in bladder. notified
[2023-09-05 20:50] LABS: Glucose Point of Care 201 mg/dL (70-110)
[2023-09-05] MEDS: atorvastatin 40 mg Tablet 80 MG PO (21:35)
[2023-09-06] VITALS: BP 106/57; PULSE 96; RESP 20; TEMP 37.7; O2SAT 91
[2023-09-06] MEDS: cefTRIAXone 1,000 MG in sodium chloride 0.9% (plus) 50 ML 100 MG IV (00:15)
[2023-09-06 04:00] VITALS: BP 93/41; PULSE 51; RESP 18; TEMP 37.4; O2SAT 97
[2023-09-06 05:17] LABS: Basophils % 0.2 %; Eosinophils # 0.2 10^3/uL (0.0-0.8); Eosinophils % 1.3 %; Hematocrit 25.5 % (36-47); Lymphocytes # 0.4 10^3/uL (0.8-4.8); Mean Corpuscular HGB Conc 32.5 g/dL (30-55); Mean Corpuscular Hemoglobin 27.8 pg (27-33); Mean Corpuscular Volume 85.3 fl (85-98); Mean Platelet Volume 11.3 fL (7.4-10.4); Monocytes # 0.3 10^3/uL (0.2-0.9); Monocytes % 2.4 %; Neutrophils % 92.6 %; Nucleated Red Blood Cells % 0.1 %; Platelet Count 266 10^3/cmm (157-399); Red Blood Count 2.99 10^6/uL (3.85-5.65); Red Cell Distribution Width 15.1 % (12.1-15.1)
[2023-09-06 05:47] LABS: Cholesterol 60 mg/dL (0-200); HDL Cholesterol 24 mg/dL (60-100); LDL Cholesterol Calculated 17 mg/dL (50-129); Triglycerides 95 mg/dL (0-150); VLDL Cholestrol Calculation 19 mg/dL (0-30)
[2023-09-06 05:48] LABS: Alanine Aminotransferase 22 U/L (0-33); Albumin Level 2.5 g/dL (3.5-5.2); Alkaline Phosphatase 74 U/L (35-105); Anion Gap 17.8 (5-19); Aspartate Amino Transferase 71 U/L (0-32); Blood Urea Nitrogen 34 mg/dL (8-23); Calcium 7.8 mg/dL (8.5-10.5); Carbon Dioxide 21 mmol/L (22-29); Chloride 96 mmol/L (98-107); Globulin 2.3 g/dL (1.3-4.6); Glucose 180 mg/dL (65-115); Osmolality Calculated 284 mOsm/kg (285-295); Potassium 3.8 mmol/L (3.5-5.1); Sodium 131 mmol/L (136-145); Total Bilirubin 0.5 mg/dL (0.15-1.2); Total Protein 4.8 g/dL (6.6-8.7)
[2023-09-06 06:00] VITALS: PULSE 94
[2023-09-06] MEDS: ketorolac 30 mg/mL INJ 15 MG IVP (06:17)
[2023-09-06 06:20] LABS: Estmated Average Glucose 183
[2023-09-06 06:39] LABS: Glucose Point of Care 213 mg/dL (70-110)
[2023-09-06 07:35] VITALS: BP 106/51; PULSE 90; RESP 14; TEMP 36.8; O2SAT 93
[2023-09-06] MEDS: insulin lispro 100 unit/1 mL SUBCUT ×2 (08:11→13:00)
[2023-09-06] MEDS: calcium carb-vit d 600mg/400unit 1 Tablet 1 EACH PO (08:12)
[2023-09-06] MEDS: amlodipine 5 mg Tablet PO (08:12)
[2023-09-06] MEDS: iron polysaccharide complex 150 mg Capsule PO (08:12)
[2023-09-06] MEDS: multivitamin therapeutic Tablet 1 TAB PO (08:12)
[2023-09-06] MEDS: levothyroxine 50 mcg Tablet PO (08:12)
[2023-09-06] MEDS: chlorhexidine gluconate 0.12% Btl 473 mL 30 ML MUCOUS MEM ×2 (08:12→13:01)
[2023-09-06 08:59] LABS: SARS Covid-2 Antigen negative (Negative)
--- NOTE | 2023-09-06 10:00 | P.DS_ITS ---
Discharge Providers Date of Admission: 09/01/23 22:12 Date of Discharge: September 06, 2023 Attending Provider at Admission: Gus Bergeron Attending Provider at Discharge: Bacilio Gill MD Consults: Orthopedics: Dr. Mills Diagnoses at Discharge Discharge Diagnosis (1) Closed intertrochanteric fracture of left hip: Status: Acute Qualifiers: Encounter type: initial encounter Fracture alignment: displaced Qualified Code(s): S72.142A - Displaced intertrochanteric fracture of left femur, initial encounter for closed fracture Reason for Visit Reason for Visit: Fall LT hip pain Brief History: History as per HPI: Pleasant 83-year-old lady states he slipped and fell at the senior facility where she resides, with pain in her left hip, stayed on the floor for about 10 minutes before she managed to call for help, on assessment in ER after the fall she is found to have intertrochanteric angulated impacted left hip fracture. She does not ambulate at the facility, she states that she has no limitations of shortness of breath, chest pain or other that limit her walking. Denies any other health issues apart from the fall and states otherwise has been at baseline state of health. Hospital Course Hospital Course Patient was admitted to the hospital further evaluation and management of left hip fracture for which orthopedics was consulted and she underwent ORIF with trochanter/long nail on 09/07. Her postoperative stay was complicated by patient developing postoperative anemia for which she required transfusion. Patient also developed stage II decub ulcer which is being managed with Hydrofera Blue. For safe discharge planning patient is being discharged to SNF for further rehabitation. She is to take oral Levaquin and Augmentin for 5 days to finish the course of antibiotics for decub ulcer. Continue wound care with Hydrofera Blue. She is being discharged in hemodynamically stable condition advised to follow-up with a primary care provider within next 1 week and with orthopedics in 2 weeks. Physical Exam Const: COMMON NORMALS: patient oriented x3 and alert GENERAL APPEARANCE: cooperative ORIENTATION/CONSCIOUSNESS: Yes awake HENMT: COMMON NORMALS: oropharynx normal Neck/C-Spine: COMMON NORMALS: no JVD Resp: COMMON NORMALS: normal respiratory effort and clear to auscultation bilaterally AUSCULTATION: clear to auscultation bilaterally Cardio: COMMON NORMALS: no JVD, regular rhythm, S1 normal heart sound present, S2 normal heart sound present and No murmurs present (Cardio) RHYTHM: regular rhythm HEART SOUNDS: S1 normal heart sound present and S2 normal heart sound present GI: COMMON NORMALS: Normal to inspection, nondistended, normoactive bowel sounds present, Soft to palpation and non-tender PALPATION: Yes Soft to palpation Extremity: COMMON NORMALS: no joint enlargement and no pedal edema OTHER: no edema present Neuro: COMMON NORMALS: patient oriented x3 and moves all extremities SENS ORIUM/ORIENTATION: Yes alert Skin: COMMON NORMALS: no rashes or lesions noted GENERAL SKIN EXAM: no rashes or lesions noted OTHER: 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 Urinary Catheter Management: [place]: Cath Placed During This Visit: yes, but has since been removed by the nurse Reason for Continuing Indwelling Catheter: Acute Urinary Retention or Obstruction Urinary Catheter Date of Insertion: 09/06/23 Urinary Catheter Time of Insertion: 02:30 Date Urinary Catheter Removed: 09/04/23 Time Urinary Catheter Discontinued: 06:10 Discharge Data Studies Completed and Pending Completed Studies During Hospitalization Category Date Time Status XR chest 1V portable [id number] Stat Exams 09/01/23 20:58 Completed XR femur LT min 2V* [id number] Routine Exams 09/02/23 19:12 Completed XR femur LT min 2V* [id number] Routine Exams 09/02/23 22:13 Completed XR femur LT min 2V* [id number] Routine Exams 09/02/23 23:10 Completed XR femur LT min 2V* [id number] Stat Exams 09/01/23 21:39 Completed XR hip LT 2-3V wo/w pel* [id number] Routine Exams 09/02/23 19:12 Completed XR hip LT 2-3V wo/w pel* [id number] Stat Exams 09/01/23 20:40 Completed Pending at discharge Category Date Time Status Folate Level AM LABS Lab 09/06/23 04:25 Received MAG [Magnesium] AM LABS Lab 09/07/23 04:00 Ordered MAG [Magnesium] AM LABS Lab 09/08/23 04:00 Ordered Radiology Impressions Chest X-Ray 09/01/23 20:58 IMPRESSION: 1. Negative for acute abnormality. 2. Emphysematous changes. Hip/Pelvis X-Ray 09/02/23 19:12 IMPRESSION: 1. Acute comminuted displaced intertrochanteric fracture of the proximal left femur Femur X-Ray 09/02/23 23:10 IMPRESSION: Left femur fractures status post open reduction and internal fixation with metallic hardware. Laboratory Results WBC 13.50 10^3/uL (3.29-11.43) H 09/06/23 04:25 RBC 2.99 10^6/uL (3.85-5.65) L 09/06/23 04:25 Hgb 8.30 g/dL (11.27-16.99) L 09/06/23 04:25 Hct 25.5 % (36-47) L 09/06/23 04:25 MCV 85.3 fl (85-98) 09/06/23 04:25 MCH 27.8 pg (27-33) 09/06/23 04:25 MCHC 32.5 g/dL (30-55) 09/06/23 04:25 RDW 15.1 % (12.1-15.1) 09/06/23 04:25 Plt Count 266 10^3/cmm (157-399) 09/06/23 04:25 MPV 11.3 fL (7.4-10.4) H 09/06/23 04:25 Neut % (Auto) 92.6 % 09/06/23 04:25 Lymph % (Auto) 3.0 % 09/06/23 04:25 [place] % (Auto) 2.4 % 09/06/23 04:25 Eos % (Auto) 1.3 % 09/06/23 04:25 Baso % (Auto) 0.2 % 09/06/23 04:25 Neut # (Auto) 12.50 10^3/uL (1.8-7.7) H 09/06/23 04:25 Lymph # (Auto) 0.4 10^3/uL (0.8-4.8) L 09/06/23 04:25 [place] # (Auto) 0.3 10^3/uL (0.2-0.9) 09/06/23 04:25 Eos # (Auto) 0.2 10^3/uL (0.0-0.8) 09/06/23 04:25 Baso # (Auto) 0.0 10^3/uL (0.0-0.1) 09/06/23 04:25 Nucleated RBC % (auto) 0.1 % 09/06/23 04:25 Nucleated RBCs # 0.0 /100WBC 09/06/23 04:25 PT 13.30 SECONDS (12.1-14.9) 09/01/23 21:21 INR 0.98 (0.8-1.2) 09/01/23 21:21 Sodium 131 mmol/L (136-145) L 09/06/23 04:25 Potassium 3.8 mmol/L (3.5-5.1) 09/06/23 04:25 Chloride 96 mmol/L (98-107) L 09/06/23 04:25 Carbon Dioxide 21 mmol/L (22-29) L 09/06/23 04:25 Anion Gap 17.8 (5-19) 09/06/23 04:25 BUN 34 mg/dL (8-23) H 09/06/23 04:25 Creatinine 1.1 mg/dL (0.5-0.9) H 09/06/23 04:25 GFR Calculation Not Reportable 09/06/23 04:25 Glucose 180 mg/dL (65-115) H 09/06/23 04:25 POC Glucose 213 mg/dL (70-110) H 09/06/23 06:23 Estimat Average Glucose 183 09/06/23 04:25 Hemoglobin A1c 8.0 % (4.0-6.0) H 09/06/23 04:25 Calculated Osmolality 284 mOsm/kg (285-295) L 09/06/23 04:25 Calcium 7.8 mg/dL (8.5-10.5) L 09/06/23 04:25 Phosphorus 2.0 mg/dL (2.5-4.5) L 09/05/23 01:15 Magnesium 2.0 mg/dL (1.7-2.3) 09/06/23 04:25 Iron 8 ug/dL (37-145) L 09/05/23 01:15 TIBC 197 mcg/dl 09/05/23 01:15 % Saturation 4.0 % (20-50) L 09/05/23 01:15 Unsat Iron Binding 189 ug/dL (112-347) 09/05/23 01:15 Total Bilirubin 0.5 mg/dL (0.15-1.2) 09/06/23 04:25 AST 71 U/L (0-32) H 09/06/23 04:25 ALT 22 U/L (0-33) 09/06/23 04:25 Alkaline Phosphatase 74 U/L (35-105) 09/06/23 04:25 Total Protein 4.8 g/dL (6.6-8.7) L 09/06/23 04:25 Albumin 2.5 g/dL (3.5-5.2) L 09/06/23 04:25 Globulin 2.3 g/dL (1.3-4.6) 09/06/23 04:25 Triglycerides 95 mg/dL (0-150) 09/06/23 04:25 Cholesterol 60 mg/dL (0-200) 09/06/23 04:25 LDL Cholesterol, Calc 17 mg/dL (50-129) L 09/06/23 04:25 Total VLDL Cholesterol 19 mg/dL (0-30) 09/06/23 04:25 HDL Cholesterol 24 mg/dL (60-100) L 09/06/23 04:25 Cholesterol/HDL Ratio 2.50 mg/dL (0.0-4.40) 09/06/23 04:25 Vitamin B12 170 pg/mL (232-1245) L 09/05/23 01:15 TSH 0.82 uIU/mL (0.27-4.20) 09/05/23 01:15 Urine Color Yellow (Yellow) 09/01/23 21:37 Urine Appearance Cloudy (CLEAR) A 09/01/23 21:37 Urine pH 6 (5-7) 09/01/23 21:37 Ur Specific Reading 1.015 (1.005-1.030) 09/01/23 21:37 Urine Protein 2+ (Negative) H 09/01/23 21:37 Urine Glucose (UA) Trace (Normal) H 09/01/23 21:37 Urine Ketones Negative (Negative) 09/01/23 21:37 Urine Blood 3+ (Negative) H 09/01/23 21:37 Urine Nitrate Negative (Negative) 09/01/23 21:37 Urine Bilirubin Neg (Negative) 09/01/23 21:37 Urine Urobilinogen 1 mg/dL (Negative) H 09/01/23 21:37 Ur Leukocyte Esterase 2+ (Negative) H 09/01/23 21:37 Urine RBC 10-15 /hpf (0-2) H 09/01/23 21:37 Urine WBC 25-40 /hpf (0-5) H 09/01/23 21:37 Ur Squamous Epith Cells 15-25 /hpf (0-5) H 09/01/23 21:37 Amorphous Sediment Not Reportable 09/01/23 21:37 Urine Bacteria 2+ /hpf (NONE) H 09/01/23 21:37 Urine Mucus 2+ /hpf 09/01/23 21:37 SARS-CoV-2 Ag (Rapid) negative (Negative) 09/06/23 08:15 Blood Type A Positive 09/01/23 21:21 Rho(D) Type Rh positive 09/01/23 21:21 Antibody Screen Negative 09/01/23 21:21 Crossmatch See Detail 09/01/23 21:21 Vitals Last Vital Signs Temp 98.3 F 09/06/23 07:35 Pulse 90 09/06/23 07:35 Resp 14 09/06/23 07:35 BP 106/51 09/06/23 07:35 Pulse Ox 93 09/06/23 07:35 O2 Del Method Room Air 09/06/23 07:35 O2 Flow Rate 3 09/03/23 09:02 Discharge Plan Discharge Patient Disposition: Xfer SNF Condition: Stable Prescriptions: New enoxaparin 30 mg/0.3 mL syringe 30 mg SUBCUT DAILY 35 Days Qty: 10.5 0RF hydrocodone-acetaminophen 5-325 mg tablet 1 tab PO Q6H PRN (Reason: pain) 5 Days Qty: 20 0RF ondansetron 4 mg tablet,disintegrating 4 mg PO Q8H PRN (Reason: nausea and vomiting) 3 Days Qty: 9 0RF amoxicillin-pot clavulanate 875-125 mg tablet 1 tab PO BID Qty: 10 0RF levofloxacin 500 mg tablet 500 mg PO Q24H 7 Days Qty: 7 0RF Ferrex 150 150 mg iron Capsule 150 mg PO BIDWM Qty: 60 5RF Continued amlodipine 5 mg tablet 5 mg PO DAILY glipizide 10 mg tablet 10 mg PO BID Januvia 50 mg tablet 50 mg PO DAILY Levo-T 50 mcg tablet 50 mcg PO DAILY metformin 1,000 mg tablet 1,000 mg PO BID rosuvastatin 20 mg tablet 20 mg PO BEDTIME Discontinued hydrochlorothiazide 25 mg tablet 25 mg PO DAILY lisinopril 40 mg tablet 40 mg PO DAILY Discharge Orders: Discharge Order (Routine); Ordered 09/06/23 Ordered By: Bacilio Gill Referrals: [facility] [Outside] Kulwant Sosa FNP [Nurse Practitioner] - 4-7 days Santosh Mills DO [Physician] - 2 weeks Discharge Diet: Advance as tolerated Discharge Activity: Limit activity as instructed Patient Instructions: Opioid Safety Activity Restrictions/Additional Instructions: Orthopedic discharge instructions: Weightbearing as tolerated to the operative extremity Ice as needed for pain and swelling Encourage knee and hip range of motion as tolerated PT/OT Take pain medication as prescribed Take antinausea medication as needed Supplement with Citracal vitamin D for bone health and healing Take Lovenox (blood thinner) as prescribed for blood clot prevention Take Colace as needed for constipation Leave Silverlon dressings on and in place for 7 days. After this they may be removed you may shower/rinse incisions with warm soapy water, pat dry redress with a dry dressing. Okay to sponge bath/shower with [place] dressings as they should be waterproof however if they do get saturated or wet please take these off dry the incision and redressed with a new dry sterile bandage. Follow-up in the orthopedic office with Dr. Mills in 2 weeks for repeat x-rays and incision check/staple removal Contact the office for any questions or concerns (i.e. increasing redness and drainage around the incision, fevers, or chills, or severe worsening in pain/change in symptoms) Discharge Attestations Time Spent in Discharge Care*: greater than 30 min Specific Discharge Activities: educating patient, educating and/or supporting family/caregiver, discussing with pcp/other providers, discussing with correctional counselor/case manager/social workers/dc planners, documenting/other paperwork and evaluating patient/reviewing data Time Spent in Smoking Cessation: more than 10 minutes Status at Discharge: Cognitive status at discharge: mildly impaired cognition , Behavioral status at discharge: cooperative , Functional status at discharge: uses cane/walker , Overall status at discharge: patient is progressing back to baseline Quality Metrics Clinical Quality Measures [ No reported AMI, CVA or VTE this stay] Coding Level of Care Code 14774 Total time (in minutes) for Discharge: 50 Diagnoses Closed intertrochanteric fracture of left hip S72.142A Encounter type: initial encounter Fracture alignment: displaced
[2023-09-06] MEDS: enoxaparin 40 mg/0.4 mL Syringe SUBCUT (10:35)
[2023-09-06 10:58] LABS: Folate Level > 20.0 ng/mL (4.8-37.3)
--- NOTE | 2023-09-06 11:20 | PC.NURSE ---
Report called to [facility]
[2023-09-06 11:22] VITALS: BP 91/50; PULSE 78; RESP 16; TEMP 36.8; O2SAT 97
[2023-09-06 11:35] LABS: Glucose Point of Care 284 mg/dL (70-110)
[2023-09-06 14:26] VITALS: BP 91/50; PULSE 78; RESP 16; TEMP 36.8; O2SAT 97
== END 2023-09-06 14:27 | disposition skilled nursing facility (03) | DRG 481 ==
LOC: ER 21:59 → MEDSURG 22:12
PROVIDERS: Internal Medicine; Student in an Organized Health Care Education/Training Program; Admitting Provider Internal Medicine; Emergency Provider Emergency Medicine; Visit Provider Student in an Organized Health Care Education/Training Program
PROC: 0QS706Z Reposition Left Upper Femur with Intramedullary Internal Fixation Device, Open Approach (ICD-10-PCS; CPT 27245; principal; 2023-09-02 17:25)
DX: S72.142A Displaced intertrochanteric fracture of left femur, initial encounter for closed fracture (principal); N17.9 Acute kidney failure, unspecified; N39.0 Urinary tract infection, site not specified; S72.22XA Displaced subtrochanteric fracture of left femur, initial encounter for closed fracture; S72.342A Displaced spiral fracture of shaft of left femur, initial encounter for closed fracture; W01.0XXA Fall on same level from slipping, tripping and stumbling without subsequent striking against object, initial encounter; L89.152 Pressure ulcer of sacral region, stage 2; Z86.73 Personal history of transient ischemic attack (TIA), and cerebral infarction without residual deficits; I10 Essential (primary) hypertension; E03.9 Hypothyroidism, unspecified; K59.00 Constipation, unspecified; D64.89 Other specified anemias; Z72.0 Tobacco use; E11.9 Type 2 diabetes mellitus without complications; Z79.84 Long term (current) use of oral hypoglycemic drugs; E78.00 Pure hypercholesterolemia, unspecified; J43.9 Emphysema, unspecified; H35.30 Unspecified macular degeneration; H54.7 Unspecified visual loss
CPT/HCPCS: 36415; 36416; 36430; 51702; 71045; 73502; 73552; 76000; 80048; 80053; 80061; 81001; 82607; 82746; 82962; 83036; 83540; 83550; 83735; 84100; 84443; 85025; 85610; 86850; 86900; 86920; 87086; 87426; 93005; 96372; 96374; 97110; 97116; 97161; 97167; 97530; 97535; 99285; C1713; C1776; J0131; J0690; J0696; J1170; J1644; J1650; J1756; J1815; J1885; J2270; J2371; J2405; J2704; J3010; J3370; J7030; P9040; P9045

== ENCOUNTER → 2023-09-22 08:37 | Outpatient (BNVA) | payer OTHER, MEDICARE, MEDICAID, SELFPAY | PROVIDERS: Visit Provider Physician Assistant | DX: S72.142D Displaced intertrochanteric fracture of left femur, subsequent encounter for closed fracture with routine healing; X58.XXXD Exposure to other specified factors, subsequent encounter; Z98.890 Other specified postprocedural states | CPT/HCPCS: 73502; 73552; 99024 ==

== ENCOUNTER → 2023-10-27 13:55 | Outpatient (BNVA) | payer OTHER, MEDICARE, MEDICAID, SELFPAY | PROVIDERS: PCP Internal Medicine; Visit Provider Physician Assistant | DX: Z98.890 Other specified postprocedural states (principal); S72.142D Displaced intertrochanteric fracture of left femur, subsequent encounter for closed fracture with routine healing; X58.XXXD Exposure to other specified factors, subsequent encounter | CPT/HCPCS: 73552; 99024 ==

== ENCOUNTER → 2023-12-22 14:05 | Outpatient (BNVA) | payer MEDICARE, MEDICAID, SELFPAY | PROVIDERS: PCP Internal Medicine; Visit Provider Physician Assistant | DX: Z98.890 Other specified postprocedural states (principal); Z87.81 Personal history of (healed) traumatic fracture | CPT/HCPCS: 73502 ==

== ENCOUNTER 2024-07-01 17:24 | Inpatient (IN) | payer MEDICARE, MEDICAID, SELFPAY ==
[2024-07-01] VITALS (8 sets, daily range): BP systolic 86–173; BP diastolic 42–82; PULSE 66–72; RESP 16–18; TEMP 36.4–36.8; O2SAT 90–94; BMI 14.3; BMI 15.0
--- NOTE | 2024-07-01 17:27 | XRR_ITS ---
PROCEDURE INFORMATION: Exam: XR Chest Exam date and time: 07/01/2024 5:59 PM Age: 84 years old Clinical indication: Shortness of breath; Additional info: SOB TECHNIQUE: Imaging protocol: Radiologic exam of the chest. Views: 1 view. COMPARISON: CR XR chest 1V portable [id number] 09/01/2023 9:02 PM FINDINGS: Lungs: Calcified granuloma in the left lung base. No consolidation. Pleural spaces: Unremarkable. No pleural effusion. No pneumothorax. Heart/Mediastinum: Unremarkable. No cardiomegaly. Bones/joints: Unremarkable. XR/XR chest 1V portable [id number] IMPRESSION: No acute findings.
--- NOTE | 2024-07-01 17:43 | PC.NURSE ---
pt is not alert or oriented and can not answer the SI questions
[2024-07-01 18:01] LABS: Basophils % 0.2 %; Hematocrit 32.3 % (36-47); Lymphocytes # 1.7 10^3/uL (0.8-4.8); Lymphocytes % 12.5 %; Mean Corpuscular HGB Conc 30.7 g/dL (30-55); Mean Corpuscular Hemoglobin 24.4 pg (27-33); Mean Corpuscular Volume 79.8 fl (85-98); Mean Platelet Volume 10.6 fL (7.4-10.4); Monocytes # 0.9 10^3/uL (0.2-0.9); Monocytes % 6.8 %; Neutrophils % 80.1 %; Nucleated Red Blood Cells % 0 %; Platelet Count 421 10^3/cmm (157-399); Red Blood Count 4.05 10^6/uL (3.85-5.65); Red Cell Distribution Width 17.3 % (12.1-15.1); White Blood Count 13.75 10^3/uL (3.29-11.43)
--- NOTE | 2024-07-01 18:13 | ED_ITS ---
HPI - URI/Sore Throat 2 General: Chief Complaint: Upper Respiratory Infection Stated Complaint: cough Time Seen by Provider: 07/01/24 18:10 Source: patient and EMS Mode of arrival: EMS History of Present Illness: 84-year-old female here from [facility] she has been having increasing cough congestion shortness of breath there patient typically does not wear oxygen they had to place her on 2 L of oxygen. Patient here has some confusion but states she has had a cough and felt dyspneic Associated symptoms: Deny abdominal pain, chills, chest pain, diarrhea, fever(s), headache(s), nausea or vomiting Related Data Home Medications Medication Instructions Recorded Confirmed amlodipine 5 mg tablet 5 mg PO DAILY 09/02/23 12/22/23 glipizide 10 mg tablet 10 mg PO BID 09/02/23 12/22/23 levothyroxine 50 mcg tablet 50 mcg PO DAILY 09/02/23 12/22/23 (Levo-T) metformin 1,000 mg tablet 1,000 mg PO BID 09/02/23 12/22/23 rosuvastatin 20 mg tablet 20 mg PO BEDTIME 09/02/23 12/22/23 sitagliptin phosphate 50 mg tablet 50 mg PO DAILY 09/02/23 12/22/23 (Januvia) acetaminophen 325 mg capsule 325 mg PO QID PRN 09/22/23 12/22/23 collagenase clostridium histo. 250 1 applic topical DAILY 09/22/23 12/22/23 unit/gram topical ointment (Santyl) hydrocodone 5 mg-acetaminophen 325 1 tab PO BID PRN 09/22/23 12/22/23 mg tablet Previous Rx's Medication Instructions Recorded polysaccharide iron complex 150 mg 150 mg PO BIDWM #60 caps 09/06/23 iron capsule (Ferrex) Allergies Allergy/AdvReac Type Severity Reaction Status Date / Time codeine Allergy Unknown Unknown Verified 07/01/24 17:42 latex Allergy Unknown Unknown Verified 07/01/24 17:42 Review of Systems 2 Const: Denies: fever(s), chills, body aches or change in appetite ENMT: Denies: throat pain or dental pain Card: Denies: chest pain Resp: Reports: dyspnea and non-productive cough GI: Denies: abdominal pain, nausea, vomiting or diarrhea Musc: Denies: neck pain or back pain Skin/Breast: Denies: rash Neuro: Denies: headache(s) PFSH ED 2 PFSH: Medical History Smoking addiction CVA (cerebral vascular accident) Hypercholesterolemia HTN (hypertension) DM type 2 (diabetes mellitus, type 2) Surgical History H/O toe surgery Social History Smoking and tobacco/nicotine status: current every day tobacco/nicotine user Second hand smoke exposure: No Alcohol intake: never Substance/Drug Use: never Physical Exam 2 Const: COMMON NORMALS: negative for patient oriented x3 HENMT: COMMON NORMALS: normocephalic and atraumatic HEAD & SCALP: n ormocephalic and atraumatic Eye: COMMON NORMALS: Equal, round and reactive pupils present and EOMs intact bilaterally PUPIL: Yes Equal, round and reactive pupils present Neck/C-Spine: COMMON NORMALS: full ROM and supple Chest: COMMONS NORMALS: normal inspection of the chest and normal palpation of entire chest wall Resp: AUSCULTATION: rales Cardio: COMMON NORMALS: regular rate, regular rhythm and No murmurs present (Cardio) RATE: regular rate RHYTHM: regular rhythm GI: COMMON NORMALS: Normal to inspection, nondistended, normoactive bowel sounds present, Soft to palpation, non-tender and no masses PALPATION: Yes Soft to palpation Extremity: COMMON NORMALS: normal to inspection and full ROM Neuro: COMMON NORMALS: moves all extremities and no focal motor deficits; negative for patient oriented x3 Psych: COMMON NORMALS: mental status grossly normal, Normal thought process present and cooperative THOUGHT PROCESS: Normal thought process present Skin: COMMON NORMALS: no rashes or lesions noted and no wounds GENERAL SKIN EXAM: no rashes or lesions noted Course 2 Vital Signs: Vital signs: Vital Signs Temperature 98.2 F 07/01/24 17:36 Pulse Rate 70 07/01/24 18:30 Respiratory Rate 16 07/01/24 18:20 Blood Pressure 173/82 07/01/24 18:51 Pulse Oximetry 92 07/01/24 18:51 Oxygen Delivery Me thod Nasal Cannula 07/01/24 18:51 Oxygen Flow Rate 2 07/01/24 18:20 MDM - URI/Sore Throat Medical Decision Making Patient presents here with shortness of breath she is requiring 2 to 3 L oxygen here did test positive for COVID will admit at this time for hypoxia and COVID. Medical Records I reviewed the patient's medical records. Lab Data I reviewed the patient's lab results. 07/01/24 17:55 07/01/24 17:55 Laboratory Results WBC 13.75 10^3/uL (3.29-11.43) H 07/01/24 17:55 RBC 4.05 10^6/uL (3.85-5.65) 07/01/24 17:55 Hgb 9.90 g/dL (11.27-16.99) L 07/01/24 17:55 Hct 32.3 % (36-47) L 07/01/24 17:55 MCV 79.8 fl (85-98) L 07/01/24 17:55 MCH 24.4 pg (27-33) L 07/01/24 17:55 MCHC 30.7 g/dL (30-55) 07/01/24 17:55 RDW 17.3 % (12.1-15.1) H 07/01/24 17:55 Plt Count 421 10^3/cmm (157-399) H 07/01/24 17:55 MPV 10.6 fL (7.4-10.4) H 07/01/24 17:55 Neut % (Auto) 80.1 % 07/01/24 17:55 Lymph % (Auto) 12.5 % 07/01/24 17:55 [place] % (Auto) 6.8 % 07/01/24 17:55 Eos % (Auto) 0.0 % 07/01/24 17:55 Baso % (Auto) 0.2 % 07/01/24 17:55 Neut # (Auto) 11.00 10^3/uL (1.8-7.7) H 07/01/24 17:55 Lymph # (Auto) 1.7 10^3/uL (0.8-4.8) 07/01/24 17:55 [place] # (Auto) 0.9 10^3/uL (0.2-0.9) 07/01/24 17:55 Eos # (Auto) 0.0 10^3/uL (0.0-0.8) 07/01/24 17:55 Baso # (Auto) 0.0 10^3/uL (0.0-0.1) 07/01/24 17:55 Nucleated RBC % (auto) 0 % 07/01/24 17:55 Nucleated RBCs # 0.0 /100WBC 07/01/24 17:55 Sodium 139 mmol/L (136-145) 07/01/24 17:55 Potassium 3.3 mmol/L (3.5-5.1) L 07/01/24 17:55 Chloride 98 mmol/L (98-107) 07/01/24 17:55 Carbon Dioxide 28 mmol/L (22-29) 07/01/24 17:55 Anion Gap 16.3 (5-19) 07/01/24 17:55 BUN 78 mg/dL (8-23) H 07/01/24 17:55 Creatinine 2.5 mg/dL (0.5-0.9) H 07/01/24 17:55 GFR Calculation Not Reportable 07/01/24 17:55 Glucose 156 mg/dL (65-115) H 07/01/24 17:55 Calculated Osmolality 315 mOsm/kg (285-295) H 07/01/24 17:55 Lactic Acid 1.7 mmol/L (0.5-2.2) 07/01/24 17:55 Calcium 8.7 mg/dL (8.5-10.5) 07/01/24 17:55 Total Bilirubin 0.3 mg/dL (0.15-1.2) 07/01/24 17:55 AST 73 U/L (0-32) H 07/01/24 17:55 ALT 41 U/L (0-33) H 07/01/24 17:55 Alkaline Phosphatase 181 U/L (35-105) H 07/01/24 17:55 NT-Pro-B Natriuret Pep 1903 pg/mL (0-450) H 07/01/24 17:55 Total Protein 6.8 g/dL (6.6-8.7) 07/01/24 17:55 Albumin 2.8 g/dL (3.5-5.2) L 07/01/24 17:55 Globulin 4.0 g/dL (1.3-4.6) 07/01/24 17:55 Coronavirus (PCR) Positive (Negative) A 07/01/24 17:52 Influenza A (PCR) Negative (Negative) 07/01/24 17:52 Influenza Type B (PCR) Negative (Negative) 07/01/24 17:52 RSV (PCR) Negative (Negative) 07/01/24 17:52 All radiology interpretation(s) finalized by discharge Discharge Plan Discharge Patient Disposition: Admitted As Inpatient Clinical Impression: COVID-19, Acute respiratory failure with hypoxia Condition: Stable Prescriptions: No Action acetaminophen 325 mg capsule 325 mg PO QID PRN hydrocodone-acetaminophen 5-325 mg tablet 1 tab PO BID PRN Santyl 250 unit/gram ointment 1 applic topical DAILY amlodipine 5 mg tablet 5 mg PO DAILY glipizide 10 mg tablet 10 mg PO BID Januvia 50 mg tablet 50 mg PO DAILY Levo-T 50 mcg tablet 50 mcg PO DAILY metformin 1,000 mg tablet 1,000 mg PO BID rosuvastatin 20 mg tablet 20 mg PO BEDTIME Ferrex 150 150 mg iron Capsule 150 mg PO BIDWM Qty: 60 5RF Referrals: Antoni Katz DO [Primary Care Provider] - Coding Level of Care Code ED Manager Administrative for Vimal Solomon
[2024-07-01] MEDS: sodium chloride 0.9% 1,000 ML 999 ML IV (18:23)
[2024-07-01] MEDS: dexamethasone 10 mg/mL INJ IVP (18:23)
[2024-07-01] MEDS: ipratropium-albuterol 3 mL Neb INHALATION (18:24)
[2024-07-01 18:33] LABS: Lactic Sepsis W/Reflex 1.7 mmol/L (0.5-2.2)
[2024-07-01 18:34] LABS: Influenza A NEGATIVE (Negative); Influenza B NEGATIVE (Negative); Respiratory Syncytial Virus Ce NEGATIVE (Negative)
[2024-07-01 18:34] LABS: Alanine Aminotransferase 41 U/L (0-33); Albumin Level 2.8 g/dL (3.5-5.2); Alkaline Phosphatase 181 U/L (35-105); Anion Gap 16.3 (5-19); Aspartate Amino Transferase 73 U/L (0-32); Blood Urea Nitrogen 78 mg/dL (8-23); Calcium 8.7 mg/dL (8.5-10.5); Carbon Dioxide 28 mmol/L (22-29); Chloride 98 mmol/L (98-107); Creatinine Clr Calc Pharmacy 12.2091; Glucose 156 mg/dL (65-115); NT Pro B Type Natriuretic Pept 1903 pg/mL (0-450); Osmolality Calculated 315 mOsm/kg (285-295); Potassium 3.3 mmol/L (3.5-5.1); Sodium 139 mmol/L (136-145); Total Bilirubin 0.3 mg/dL (0.15-1.2); Total Protein 6.8 g/dL (6.6-8.7)
[2024-07-01 18:39] LABS: Covid PCR Positive (Negative)
--- NOTE | 2024-07-01 19:19 | PM.HP ---
Providers/Chief Complaint Admitting Physician: Laila Sweeney MD Primary Care Provider: Antoni Katz DO Chief Complaint: cough History of Present Illness History was obtained from ED notes, because patient was AO x 0 Tamela Wahl is a 84 yo woman w/ HTN, HLD, non-IDDM2, hx of a CVA, who was brought to the ED on 07/01/2024 from [facility] for increasing, congestion, and dyspnea, such that she had to be placed on 2L NC O2, and she does not require O2 at baseline. In the ED, her vital signs were within normal limits. Her labs are significant for leukocytosis of 13.75, potassium of 3.3, BUN/Cr of 78/2.5 (baseline of 34/1.1 as of 09/2023). Her CXR showed no acute findings. She was given dexamethasone 10 mg IVP x 1 and 1 L NS and admitted for further management. Review of Systems General: Reports: ROS unobtainable due to medical condition and ROS unobtainable due to mental status Medications/Allergies Home Medications Medication Instructions Recorded Confirmed Last Taken Type amlodipine 5 mg tablet 5 mg PO DAILY 09/02/23 12/22/23 1 Day Ago History ~09/01/23 glipizide 10 mg tablet 10 mg PO BID 09/02/23 12/22/23 Unknown History levothyroxine 50 mcg tablet 50 mcg PO DAILY 09/02/23 07/01/24 09/01/23 07:00 History (Levo-T) metformin 1,000 mg tablet 1,000 mg PO BID 09/02/23 12/22/23 1 Day Ago History ~09/01/23 0700 rosuvastatin 20 mg tablet 20 mg PO BEDTIME 09/02/23 12/22/23 2 Days Ago History ~08/31/23 sitagliptin phosphate 50 mg tablet 50 mg PO DAILY 09/02/23 12/22/23 09/01/23 07:00 History (Januvia) polysaccharide iron complex 150 mg 150 mg PO BIDWM #60 caps 09/06/23 12/22/23 Unknown Rx iron capsule (Ferrex) acetaminophen 325 mg capsule 325 mg PO QID PRN pain 09/22/23 07/01/24 Unknown History collagenase clostridium histo. 250 1 applic topical DAILY 09/22/23 12/22/23 Unknown History unit/gram topical ointment (Santyl) hydrocodone 5 mg-acetaminophen 325 1 tab PO BID PRN Pain 09/22/23 07/01/24 Unknown History mg tablet insulin degludec 100 unit/mL (3 6 unit SUBCUT BEDTIME 07/01/24 07/01/24 Unknown History mL) subcutaneous pen (Tresiba FlexTouch U-100 insulin) ondansetron HCl 4 mg tablet 4 mg PO PRN n/v 07/01/24 07/01/24 Unknown History Allergies Allergy/AdvReac Type Severity Reaction Status Date / Time codeine Allergy Unknown Unknown Verified 07/01/24 17:42 latex Allergy Unknown Unknown Verified 07/01/24 17:42 PFSH Acute PFSH: Medical History (Updated 07/02/24 @ 00:34 by Laila Sweeney MD) Smoking addiction CVA (cerebral vascular accident) Hypercholesterolemia HTN (hypertension) DM type 2 (diabetes mellitus, type 2) Surgical History (Updated 07/01/24 @ 23:59 by Laila Sweeney MD) H/O toe surgery R. great toe amputation Social History Smoking and tobacco/nicotine status: current every day tobacco/nicotine user Second hand smoke exposure: No Alcohol intake: never Substance/Drug Use: never Vitals/I&O/Wt Last Vital Signs Temp 98.2 F 07/01/24 17:36 Pulse 70 07/01/24 18:30 Resp 16 07/01/24 18:20 BP 173/82 07/01/24 18:51 Pulse Ox 92 07/01/24 18:51 O2 Del Method Nasal Cannula 07/01/24 18:51 O2 Flow Rate 2 07/01/24 18:20 07/01/24 07/01/24 07/01/24 06:59 14:59 22:59 Intake Total 0 / 0 Balance 0 / 0 Weight last 48 hrs Weight 45.359 kg Physical Exam Const: GENERAL APPEARANCE: ill appearing and frail appearing NUTRITIONAL APPEARANCE: cachectic ORIENTATION/CONSCIOUSNESS: Yes awake and Yes confused; not oriented to person, not oriented to place and not oriented to time HENMT: HEAD & SCALP: normal to inspection and normocephalic NOSE: Normal external nose present EXTERNAL EAR: Yes external ears normal OTHER: Dry oropharynx with dried blood around her lips. Eye: OTHER: PERRL, EOMI, normal conjunctiva bilaterally. Neck/C-Spine: GENERAL: Yes normal visual inspection, Yes trachea midline and Yes lymphadenopathy CERVICAL SPINE: Yes cervical ROM normal OTHER: Unable to assess thyroid given confusion and ability to follow commands. Lymph: OTHER: No cervical or supraclavicular LAD. Resp: OTHER: Bilateral lower lung crackles. Cardio: OTHER: RRR, no m/r/g or clicks. 2+ radial and DP pulses. GI: OTHER: BS+, nontender, nondistended, no rigidity, no rebound tenderness, no guarding, no hepatosplenomegaly. Extremity: NARRATIVE EXTREMITY EXAM: Amputated right great toe GENERAL: No clubbing, No cyanosis and No edema Neuro: JONE COMA SCALE: document GCS findings Jone coma scale eye opening: Spontaneous Jone coma scale verbal response: Confused [place] coma scale motor response: Obey commands Jone coma scale total score: 14 Psych: OTHER: Unable to assess given her mental status Skin: NARRATIVE SKIN EXAM: Stage III sacrococcygeal ulcer, Malodorous & Unstageable R. heel ulcer (necrosed skin) Data 07/01/24 17:55 07/01/24 17:55 A&P Assessment and plan (1) Acute respiratory failure with hypoxia: (2) COVID-19: (3) Acute kidney injury: (4) Transaminitis: (5) Sacral decubitus ulcer, stage III: (6) Unstageable pressure ulcer of heel: (7) Severe protein-calorie malnutrition: Plan Tamela Wahl is a 84 yo woman w/ HTN, HLD, non-IDDM2, hx of a CVA, who was brought to the ED on 07/01/2024 from [facility] for increasing, congestion, and dyspnea, such that she had to be placed on 2L NC O2, and she does not require O2 at baseline. She is being admitted from the ED for acute hypoxic respiratory failure secondary to COVID-19 infection for further management In the ED, her vital signs were within normal limits. Her labs are significant for leukocytosis of 13.75, potassium of 3.3, BUN/Cr of 78/2.5 (baseline of 34/1.1 as of 09/2023). Her CXR showed no acute findings. She was given dexamethasone 10 mg IVP x 1 and 1 L NS and admitted for further management. #Acute hypoxic respiratory failure #COVID-19 pneumonia - Decadron, PPI, duonebs. She is not a candidate for Remdesivir given her renal function - On 2L NC. Wean as tolerated. #FLAKITO: s/p 1L NS bolus in the ED. Started NS at 60 cc/hr for up to 2L #Transaminits: likely due to her Dehydration #Stage III sacrococcygeal ulcer #Malodorous & Unstageable R. heel ulcer - Wound care consult - F/u ESR, CRP - Consider Imaging - Started Zosyn #Severe Protein Calorie Malnutrition: Consult Construction Project Assistant for recs. #HTN: Hold meds at this time #HLD: Hold meds at this time #non-IDDM2: Monitor glucose. Low dose sliding scale for meals and bedtime ordered. DVT ppx: Lovenox 30 GI ppx: Pantoprazole. Code status: I called the patient's Friend listed on her chart, who makes the decisions for the patient. The patient's friend's name is Susan Benítez. According to Werner Jeyson, the patient is DNR/DNI. Attestations Medical Necessity Statement*: Patient needs to be hospitalized for greater than 2 midnights for acute hypoxic respiratory failure secondary to COVID-19 pneumonia, acute kidney injury, transaminitis, severe malnutrition. Patient patient is at high risk of decompensation. Other Coding Information Focused coding review requested Diagnoses Acute respiratory failure with hypoxia J96.01 COVID-19 U07.1 Acute kidney injury N17.9 Transaminitis R74.01 Sacral decubitus ulcer, stage III L89.153 Unstageable pressure ulcer of heel L89.600 Severe protein-calorie malnutrition E43
--- NOTE | 2024-07-01 20:24 | PC.NURSE ---
Mayuri @ [facility] notified of pt dx and admit to med surg.
[2024-07-01] MEDS: enoxaparin 30 mg/0.3 mL Syringe SUBCUT (21:58)
[2024-07-01] MEDS: sennosides 8.6 mg Tablet 17.2 MG PO (21:59)
--- NOTE | 2024-07-01 23:02 | PC.NURSE ---
Admission assessment completed by this nurse over the phone with Alyssa at [facility] [place].
[2024-07-02] VITALS (10 sets, daily range): BP systolic 122–137; BP diastolic 49–60; PULSE 66–82; RESP 16–18; TEMP 36.2–36.7; O2SAT 92–96
[2024-07-02] MEDS: sodium chloride 0.9% 1,000 ML 60 ML IV (00:04)
[2024-07-02 00:12] LABS: Magnesium 2.4 mg/dL (1.7-2.3); Phosphorus 4.7 mg/dL (2.5-4.5)
--- NOTE | 2024-07-02 00:43 | PC.NURSE ---
IV medication adjustment: Physician gave this nurse verbal orders to increase IV maintenance fluids of Normal Saline from 60ml/hr to 75/ml per hour.
[2024-07-02] MEDS: piperacillin-tazobactam 3.375 GM in sodium chloride 0.9% (plus) 50 ML IV ×2 (00:44→13:23)
[2024-07-02 00:51] LABS: Erythrocyte Sedimentation Rate 77 mm/hr (0-15)
[2024-07-02] MEDS: pantoprazole 40 mg SDV IVP (05:30)
[2024-07-02 05:52] LABS: Basophils % 0.1 %; Hematocrit 31.2 % (36-47); Lymphocytes # 0.9 10^3/uL (0.8-4.8); Lymphocytes % 8.3 %; Mean Corpuscular HGB Conc 30.4 g/dL (30-55); Mean Corpuscular Hemoglobin 24.4 pg (27-33); Mean Corpuscular Volume 80.2 fl (85-98); Mean Platelet Volume 11.3 fL (7.4-10.4); Monocytes # 0.2 10^3/uL (0.2-0.9); Monocytes % 1.5 %; Neutrophils % 89.6 %; Nucleated Red Blood Cells % 0 %; Platelet Count 380 10^3/cmm (157-399); Red Blood Count 3.89 10^6/uL (3.85-5.65); Red Cell Distribution Width 17.3 % (12.1-15.1)
[2024-07-02 06:17] LABS: Glucose Point of Care 241 mg/dL (70-110)
[2024-07-02 06:18] LABS: Alanine Aminotransferase 40 U/L (0-33); Albumin Level 2.5 g/dL (3.5-5.2); Alkaline Phosphatase 177 U/L (35-105); Anion Gap 24.4 (5-19); Aspartate Amino Transferase 77 U/L (0-32); Blood Urea Nitrogen 78 mg/dL (8-23); Carbon Dioxide 22 mmol/L (22-29); Chloride 102 mmol/L (98-107); Creatinine Clr Calc Pharmacy 12.7585; Globulin 3.7 g/dL (1.3-4.6); Glucose 278 mg/dL (65-115); Magnesium 2.3 mg/dL (1.7-2.3); Osmolality Calculated 333 mOsm/kg (285-295); Phosphorus 5.6 mg/dL (2.5-4.5); Potassium 3.4 mmol/L (3.5-5.1); Sodium 145 mmol/L (136-145); Thyroid Stimulating Hormone 0.88 uIU/mL (0.27-4.20); Total Bilirubin 0.3 mg/dL (0.15-1.2); Total Protein 6.2 g/dL (6.6-8.7)
[2024-07-02] MEDS: ipratropium-albuterol 3 mL Neb INHALATION ×3 (07:55→21:15)
[2024-07-02] MEDS: insulin lispro 100 unit/1 mL SUBCUT ×2 (10:17→13:23)
[2024-07-02 11:41] LABS: Glucose Point of Care 222 mg/dL (70-110)
[2024-07-02] MEDS: sodium chloride 0.9% 1,000 ML 75 ML IV (16:23)
[2024-07-02 16:57] LABS: Glucose Point of Care 74 mg/dL (70-110)
[2024-07-02 20:34] LABS: Glucose Point of Care 124 mg/dL (70-110)
[2024-07-02] MEDS: sennosides 8.6 mg Tablet 17.2 MG PO (20:47)
[2024-07-02] MEDS: enoxaparin 30 mg/0.3 mL Syringe SUBCUT (20:47)
--- NOTE | 2024-07-02 20:55 | P.PN_ITS ---
Subjective 2 Subjective: She is feeling slightly better. She is having cough. No nausea vomiting or diarrhea. No headache. Vitals/I&O/Wt Last Vital Signs Temp 98.1 F 07/02/24 19:36 Pulse 70 07/02/24 19:36 Resp 18 07/02/24 19:36 BP 122/56 07/02/24 19:36 Pulse Ox 92 07/02/24 19:36 O2 Del Method Room Air 07/02/24 19:36 O2 Flow Rate 2 07/02/24 07:55 07/02/24 07/02/24 07/02/24 06:59 14:59 22:59 Intake Total 50 / 1110 240 / 240 1209 / 1449 Balance 50 / 1110 240 / 240 1209 / 1449 Weight last 48 hrs Weight 47.4 kg Weight 47.718 kg Weight 45.359 kg Physical Exam 2 Narrative: Mildly hard of hearing. Awake. Const: COMMON NORMALS: patient oriented x3 and alert GENERAL APPEARANCE: c ooperative ORIENTATION/CONSCIOUSNESS: Yes awake HENMT: COMMON NORMALS: oropharynx normal Neck/C-Spine: COMMON NORMALS: no JVD Resp: COMMON NORMALS: normal respiratory effort and clear to auscultation bilaterally AUSCULTATION: clear to auscultation bilaterally Cardio: COMMON NORMALS: no JVD, regular rhythm, S1 normal heart sound present, S2 normal heart sound present and No murmurs present (Cardio) RHYTHM: regular rhythm HEART SOUNDS: S1 normal heart sound present and S2 normal heart sound present GI: COMMON NORMALS: Normal to inspection, nondistended, normoactive bowel sounds present, Soft to palpation and non-tender PALPATION: Yes Soft to palpation Extremity: COMMON NORMALS: no joint enlargement and no pedal edema OTHER: Black eschar covering inferior posterior portion of the right heel, 1.5 cm in diameter, malodorous. Neuro: COMMON NORMALS: patient oriented x3 and moves all extremities S ENSORIUM/ORIENTATION: Yes alert Skin: COMMON NORMALS: no rashes or lesions noted GENERAL SKIN EXAM: no rashes or lesions noted Data 07/02/24 05:16 07/02/24 05:16 Micro: Microbiology 07/01/24 19:04 Blood Culture - Preliminary Blood NEGATIVE TO DATE 07/01/24 19:01 Blood Culture - Preliminary Blood NEGATIVE TO DATE A&P Assessment and plan (1) Acute respiratory failure with hypoxia: (2) COVID-19: (3) Acute kidney injury: (4) Transaminitis: (5) Sacral decubitus ulcer, stage III: (6) Unstageable pressure ulcer of heel: (7) Severe protein-calorie malnutrition: Plan Tamela Wahl is a 84 yo woman w/ HTN, HLD, non-IDDM2, hx of a CVA, who was brought to the ED on 07/01/2024 from [facility] for increasing, congestion, and dyspnea, such that she had to be placed on 2L NC O2, and she does not require O2 at baseline. She is being admitted from the ED for acute hypoxic respiratory failure secondary to COVID-19 infection for further management In the ED, her vital signs were within normal limits. Her labs are significant for leukocytosis of 13.75, potassium of 3.3, BUN/Cr of 78/2.5 (baseline of 34/1.1 as of 09/2023). Her CXR showed no acute findings. She was given dexamethasone 10 mg IVP x 1 and 1 L NS and admitted for further management. #Acute hypoxic respiratory failure # Severe COVID-19 pneumonia Improving. Weaning down to room air and oxygen requirement. Continue Decadron. Monitor for risk of encephalopathy, hypertension, hyperglycemia with next Methasone. Stop IV fluid. Reassess for risk of fluid overload. Oxygen support as needed. Wean as tolerated. Lovenox VTE prophylaxis. Follow-up D-dimer. Antitussive as needed. Discussed with nursing, respite therapist, complex case manager. #FLAKITO: s/p 1L reviewed creatinine, BUN, bicarb, anion gap, potassium. Received fluid challenge. Hold further IV fluid. Recheck renal function. Monitor intake and output. #Transaminits: likely due to COVID-19. Repeat chemistry. #Stage III sacrococcygeal ulcer: Continue repositioning as condition requires. Add nutritional supplement. Dietitian consultation. #Malodorous & Unstageable R. heel ulcer: Discussed with podiatry. Will reassess respiratory function, renal function. Monitor showing improvement consider consultation for debridement. Dark eschar, although with drainage, malodor. Less likely arterial, but will check ANY. On Zosyn #Severe Protein Calorie Malnutrition: Consult Residential Air Sealing Technician for recs. #HTN: Hold meds at this time #HLD: Hold meds at this time #non-IDDM2: Monitor glucose. Low dose sliding scale for meals and bedtime ordered. DVT ppx: Lovenox 30 Code status:DNR/DNI. Attestations 2 Medical Necessity Statement*: Continue admission for assessment of management of severe COVID-19 pneumonia, FLAKITO, unstageable pressure ulcer right heel. and High MDM includes amount and/or complexity of data reviewed/ordered [ resulted lab(s)/test(s), ordered lab(s)/test(s) and other healthcare professional discussion] and described risk of complication, morbidity or mortality of management as documented Diagnoses Acute respiratory failure with hypoxia J96.01 COVID-19 U07.1 Acute kidney injury N17.9 Transaminitis R74.01 Sacral decubitus ulcer, stage III L89.153 Unstageable pressure ulcer of heel L89.600 Severe protein-calorie malnutrition E43
--- NOTE | 2024-07-02 20:56 | USCV_ITS ---
Tamela Wahl Age: 84 Gender: F : 1940 Exam Date: 07/02/2024 21:31 Ordering Phys: Gus Bergeron MD Technologist: FRANDY [place] [facility] [place] non-healing RIGHT heel ulceration. Hx HTN, HLD, DM2, CVA, SOB, in COVID isolation Risk Factors: non-healing RIGHT heel ulceration. Hx HTN, HLD, DM2, CVA, SOB, in COVID isolation Previous Vascular Surgery: dementia patient RIGHT LEFT BP: 128.0 / 60.00 BP: 135.0/ 60.00 0 0 Waveform Velocity (cm/s) Velocity (cm/s) Waveform Biphasic 271.0 Iliac Prox Biphasic 315.0 Iliac Mid Biphasic 211.0 Iliac Distal Triphasic 225.0 EMPLOYEE RELATIONS ADVISOR Triphasic 136.0 SFA Prox Biphasic 118.0 SFA Mid Biphasic 88.0 SFA Dist Biphasic 86.0 POP N/A 0.0 STORM CHASER Biphasic 41.0 DPA 0.4 ANY FINDINGS Moderate diffuse plaque in the iliac, femoral and popliteal arteries On the right side. No Doppler flow signals in the right posterior tibial artery Resting ANY of 0.4 on the right side CONCLUSIONS 1. Abnormal resting ANY suggestive of severe peripheral artery disease 2. 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 Disease appears to be mostly affecting the infrapopliteal vessels Dr Sj Fatima MD [facility] (Electronically Signed) Final Date: 03 July 2024 01:28 S
[2024-07-03] VITALS (10 sets, daily range): BP systolic 134–167; BP diastolic 54–67; PULSE 70–91; RESP 14–18; TEMP 36.4–36.8; O2SAT 89–95
[2024-07-03] MEDS: piperacillin-tazobactam 3.375 GM in sodium chloride 0.9% (plus) 50 ML IV ×2 (00:16→12:42)
[2024-07-03] MEDS: ipratropium-albuterol 3 mL Neb INHALATION ×4 (01:35→22:41)
[2024-07-03 05:46] LABS: Basophils % 0.1 %; Hematocrit 28.7 % (36-47); Lymphocytes # 0.8 10^3/uL (0.8-4.8); Lymphocytes % 4.7 %; Mean Corpuscular Hemoglobin 24.9 pg (27-33); Mean Corpuscular Volume 80.2 fl (85-98); Mean Platelet Volume 10.7 fL (7.4-10.4); Neutrophils # 14.68 10^3/uL (1.8-7.7); Neutrophils % 88.2 %; Nucleated Red Blood Cells % 0 %; Platelet Count 391 10^3/cmm (157-399); Red Blood Count 3.58 10^6/uL (3.85-5.65); Red Cell Distribution Width 17.5 % (12.1-15.1); White Blood Count 16.66 10^3/uL (3.29-11.43)
[2024-07-03 05:58] LABS: D Dimer 0.95 ug/mLFEU (0-0.59)
[2024-07-03 06:09] LABS: Alanine Aminotransferase 37 U/L (0-33); Albumin Level 2.4 g/dL (3.5-5.2); Alkaline Phosphatase 152 U/L (35-105); Anion Gap 21.7 (5-19); Aspartate Amino Transferase 72 U/L (0-32); Blood Urea Nitrogen 68 mg/dL (8-23); Calcium 7.8 mg/dL (8.5-10.5); Carbon Dioxide 20 mmol/L (22-29); Chloride 105 mmol/L (98-107); Creatinine Clr Calc Pharmacy 13.2958; Globulin 3.5 g/dL (1.3-4.6); Glucose 147 mg/dL (65-115); Magnesium 2.3 mg/dL (1.7-2.3); Osmolality Calculated 320 mOsm/kg (285-295); Phosphorus 4.1 mg/dL (2.5-4.5); Sodium 144 mmol/L (136-145); Total Bilirubin 0.3 mg/dL (0.15-1.2); Total Protein 5.9 g/dL (6.6-8.7)
[2024-07-03 06:11] LABS: Glucose Point of Care 145 mg/dL (70-110)
[2024-07-03 06:15] LABS: Potassium 2.7 mmol/L (3.5-5.1)
[2024-07-03] MEDS: lidocaine 1% 5 ML in potassium chloride premix 100 ML 26.25 ML IV (06:57)
[2024-07-03] MEDS: docusate sodium 100 mg Capsule 200 MG PO (08:53)
[2024-07-03] MEDS: insulin lispro 100 unit/1 mL SUBCUT ×2 (08:53→21:30)
[2024-07-03] MEDS: pantoprazole 40 mg SDV IVP (08:53)
[2024-07-03] MEDS: dexamethasone 10 mg/mL INJ 6 MG PO (08:54)
[2024-07-03] MEDS: albumin 25 G/100 ML BAG 60 G IV (08:55)
[2024-07-03 10:44] LABS: Glucose Point of Care 105 mg/dL (70-110)
[2024-07-03 17:52] LABS: Glucose Point of Care 195 mg/dL (70-110)
--- NOTE | 2024-07-03 20:24 | P.PN_ITS ---
Subjective 2 Subjective: She reports overall she is doing okay. Denies any severely bothersome cough. No chest pain or pressure. No headache, nausea vomiting or diarrhea. Vitals/I&O/Wt Last Vital Signs Temp 98.1 F 07/03/24 20:00 Pulse 79 07/03/24 20:00 Resp 16 07/03/24 20:00 BP 167/56 07/03/24 20:00 Pulse Ox 91 07/03/24 20:00 O2 Del Method Room Air 07/03/24 20:00 O2 Flow Rate 2 07/02/24 07:55 07/03/24 07/03/24 07/03/24 06:59 14:59 22:59 Intake Total 1050 / 2499 405 / 405 370 / 775 Balance 1050 / 2499 405 / 405 370 / 775 Weight last 48 hrs Weight 49.396 kg Weight 47.4 kg Weight 47.718 kg Physical Exam 2 Narrative: Mildly hard of hearing. Awake. Const: COMMON NORMALS: patient oriented x3 and alert GENERAL APPEARANCE: c ooperative ORIENTATION/CONSCIOUSNESS: Yes awake HENMT: COMMON NORMALS: oropharynx normal Neck/C-Spine: COMMON NORMALS: no JVD Resp: COMMON NORMALS: normal respiratory effort and clear to auscultation bilaterally AUSCULTATION: clear to auscultation bilaterally Cardio: COMMON NORMALS: no JVD, regular rhythm, S1 normal heart sound present, S2 normal heart sound present and No murmurs present (Cardio) RHYTHM: regular rhythm HEART SOUNDS: S1 normal heart sound present and S2 normal heart sound present GI: COMMON NORMALS: Normal to inspection, nondistended, normoactive bowel sounds present, Soft to palpation and non-tender PALPATION: Yes Soft to palpation Extremity: COMMON NORMALS: no joint enlargement and no pedal edema OTHER: Black eschar covering inferior posterior portion of the right heel, 1.5 cm in diameter, malodorous. Neuro: COMMON NORMALS: patient oriented x3 and moves all extremities S ENSORIUM/ORIENTATION: Yes alert Skin: COMMON NORMALS: no rashes or lesions noted GENERAL SKIN EXAM: no rashes or lesions noted Data 07/03/24 05:00 07/03/24 05:00 Micro: Microbiology 07/01/24 19:04 Blood Culture - Preliminary Blood NEGATIVE TO DATE 07/01/24 19:01 Blood Culture - Preliminary Blood NEGATIVE TO DATE A&P Assessment and plan (1) Acute respiratory failure with hypoxia: (2) COVID-19: (3) Acute kidney injury: (4) Transaminitis: (5) Sacral decubitus ulcer, stage III: (6) Unstageable pressure ulcer of heel: (7) Severe protein-calorie malnutrition: Plan Tamela Wahl is a 84 yo woman w/ HTN, HLD, non-IDDM2, hx of a CVA, who was brought to the ED on 07/01/2024 from [facility] for increasing, congestion, and dyspnea, such that she had to be placed on 2L NC O2, and she does not require O2 at baseline. She is being admitted from the ED for acute hypoxic respiratory failure secondary to COVID-19 infection for further management In the ED, her vital signs were within normal limits. Her labs are significant for leukocytosis of 13.75, potassium of 3.3, BUN/Cr of 78/2.5 (baseline of 34/1.1 as of 09/2023). Her CXR showed no acute findings. She was given dexamethasone 10 mg IVP x 1 and 1 L NS and admitted for further management. #FLAKITO: So far with improving kidney injury on review of BUN, creatinine, anion gap, bicarb. Giving dose of 25 g of 25% albumin.discussed with family caseworker. Discharge deferred for now pending proving kidney function, pending additional assessment of PAD with possible revascularization. Review arterial duplex of lower extremity with noted severe peripheral artery disease, features of total occlusion of posterior tibial artery on the right side. Recheck renal function. Monitor intake and output. Severe hypokalemia: Received replacement. Reviewed magnesium. Recheck chemistry. #Malodorous & Unstageable R. heel ulcer: Reviewed arterial duplex, as above. Would benefit from further assessment for possible revascularization, however, currently impeded by an improving renal function. Discussed with podiatry. Will reassess respiratory function, renal function. Monitor showing improvement consider consultation for debridement. Dark eschar, although with drainage, malodor. On Zosyn WBC count increased up to 16.66, although may be partially secondary to steroid. Reviewed blood culture, so far negative. # Severe COVID-19 pneumonia: Continue treatment of improving severe COVID-19 pneumonia. Continue Decadron. Monitor for risk of encephalopathy, hypertension, hyperglycemia with Dexamethasone. Reassess D-dimer. Oxygen support as needed. Wean as tolerated. Lovenox VTE prophylaxis. Antitussive as needed. Discussed with nursing, respite therapist, family caseworker. #Acute hypoxic respiratory failure: Respiratory failure resolved. #Transaminits: likely due to COVID-19. Repeat chemistry. #Stage III sacrococcygeal ulcer: Continue repositioning as condition requires. Add nutritional supplement. Dietitian consultation. #Severe Protein Calorie Malnutrition: Consult Engine Dispatcher for recs. #HTN: Hold meds at this time #HLD: Hold meds at this time #non-IDDM2: Monitor glucose. Low dose sliding scale for meals and bedtime ordered. DVT ppx: Lovenox 30 Code status:DNR/DNI. Attestations 2 Medical Necessity Statement*: Continue admission for assessment of management of FLAKITO, nonhealing ulcer with malodorous discharge of the right heel, with severe peripheral chill disease, severe COVID-19 pneumonia. and High MDM includes amount and/or complexity of data reviewed/ordered [ resulted lab(s)/test(s), ordered lab(s)/test(s) and other healthcare professional discussion] and described risk of complication, morbidity or mortality of management as documented Diagnoses Acute respiratory failure with hypoxia J96.01 COVID-19 U07.1 Acute kidney injury N17.9 Transaminitis R74.01 Sacral decubitus ulcer, stage III L89.153 Unstageable pressure ulcer of heel L89.600 Severe protein-calorie malnutrition E43
[2024-07-03 20:51] LABS: Glucose Point of Care 231 mg/dL (70-110)
--- NOTE | 2024-07-03 21:00 | PC.NURSE ---
Patient is able to tell me that she is in the hospital in [place]. She is able to tell me her name. She is able to tell me that the year is 2023. She is NOT able to tell me why she is in the hospital, what month it is, what day it is, or the time of day.
[2024-07-03] MEDS: enoxaparin 30 mg/0.3 mL Syringe SUBCUT (21:29)
[2024-07-04] VITALS (14 sets, daily range): BP systolic 141–169; BP diastolic 49–76; PULSE 67–88; RESP 13–19; TEMP 36.2–36.9; O2SAT 87–94
[2024-07-04] MEDS: piperacillin-tazobactam 3.375 GM in sodium chloride 0.9% (plus) 50 ML IV ×2 (00:25→12:28)
[2024-07-04] MEDS: ipratropium-albuterol 3 mL Neb INHALATION ×4 (03:17→20:10)
[2024-07-04 04:47] LABS: Basophils % 0.2 %; Hematocrit 29.7 % (36-47); Lymphocytes # 0.9 10^3/uL (0.8-4.8); Lymphocytes % 5.7 %; Mean Corpuscular HGB Conc 30.6 g/dL (30-55); Mean Corpuscular Hemoglobin 24.7 pg (27-33); Mean Corpuscular Volume 80.7 fl (85-98); Mean Platelet Volume 10.6 fL (7.4-10.4); Monocytes # 0.9 10^3/uL (0.2-0.9); Monocytes % 5.7 %; Neutrophils # 14.05 10^3/uL (1.8-7.7); Neutrophils % 87.3 %; Nucleated Red Blood Cells % 0 %; Platelet Count 367 10^3/cmm (157-399); Red Blood Count 3.68 10^6/uL (3.85-5.65); Red Cell Distribution Width 17.6 % (12.1-15.1); White Blood Count 16.08 10^3/uL (3.29-11.43)
[2024-07-04 05:04] LABS: Alanine Aminotransferase 39 U/L (0-33); Albumin Level 2.8 g/dL (3.5-5.2); Alkaline Phosphatase 134 U/L (35-105); Anion Gap 23.8 (5-19); Aspartate Amino Transferase 76 U/L (0-32); Blood Urea Nitrogen 59 mg/dL (8-23); Calcium 8.1 mg/dL (8.5-10.5); Carbon Dioxide 19 mmol/L (22-29); Chloride 100 mmol/L (98-107); Creatinine Clr Calc Pharmacy 15.6248; Globulin 3.3 g/dL (1.3-4.6); Glucose 146 mg/dL (65-115); Magnesium 2.2 mg/dL (1.7-2.3); Osmolality Calculated 309 mOsm/kg (285-295); Phosphorus 3.3 mg/dL (2.5-4.5); Sodium 140 mmol/L (136-145); Total Bilirubin 0.4 mg/dL (0.15-1.2); Total Protein 6.1 g/dL (6.6-8.7)
[2024-07-04 05:11] LABS: Potassium 2.8 mmol/L (3.5-5.1)
[2024-07-04] MEDS: lidocaine 1% 5 ML in potassium chloride premix 100 ML 26.25 ML IV (06:26)
[2024-07-04 06:30] LABS: Glucose Point of Care 164 mg/dL (70-110)
[2024-07-04] MEDS: pantoprazole 40 mg SDV IVP (10:03)
[2024-07-04] MEDS: insulin lispro 100 unit/1 mL SUBCUT ×3 (10:03→21:31)
[2024-07-04] MEDS: dexamethasone 10 mg/mL INJ 6 MG PO (10:03)
[2024-07-04] MEDS: docusate sodium 100 mg Capsule 200 MG PO (10:04)
--- NOTE | 2024-07-04 10:34 | PC.SOCIAL ---
IMM Update Pg. 2 of IMM updated. Initialed, dated, and timed, copy placed in chart. Copy provided at bedside.
[2024-07-04 12:15] LABS: Glucose Point of Care 130 mg/dL (70-110)
[2024-07-04 17:45] LABS: Glucose Point of Care 181 mg/dL (70-110)
[2024-07-04 20:57] LABS: Glucose Point of Care 150 mg/dL (70-110)
--- NOTE | 2024-07-04 21:08 | PM.PN ---
Subjective Subjective: Denies any new developments today. Overall is feeling slightly better. Vitals/I&O/Wt Last Vital Signs Temp 97.5 F L 07/04/24 20:00 Pulse 67 07/04/24 20:17 Resp 17 07/04/24 20:10 BP 156/67 07/04/24 20:00 Pulse Ox 94 07/04/24 20:10 O2 Del Method Room Air 07/04/24 20:10 O2 Flow Rate 2 07/02/24 07:55 07/04/24 07/04/24 07/04/24 06:59 14:59 22:59 Intake Total 50 / 825 155 / 155 Balance 50 / 825 155 / 155 Weight last 48 hrs Weight 48.761 kg Weight 49.396 kg Physical Exam Narrative: Mildly hard of hearing. Awake. Const: COMMON NORMALS: patient oriented x3 and alert GENERAL APPEARANCE: cooperative ORIENTATION/CONSCIOUSNESS: Yes awake HENMT: COMMON NORMALS: oropharynx normal Neck/C-Spine: COMMON NORMALS: no JVD Resp: COMMON NORMALS: normal respiratory effort and clear to auscultation bilaterally AUSCULTATION: clear to auscultation bilaterally Cardio: COMMON NORMALS: no JVD, regular rhythm, S1 normal heart sound present, S2 normal heart sound present and No murmurs present (Cardio) RHYTHM: regular rhythm HEART SOUNDS: S1 normal heart sound present and S2 normal heart sound present GI: COMMON NORMALS: Normal to inspection, nondistended, normoactive bowel sounds present, Soft to palpation and non-tender PALPATION: Yes Soft to palpation Extremity: COMMON NORMALS: no joint enlargement and no pedal edema OTHER: Black eschar covering inferior posterior portion of the right heel, 1.5 cm in diameter, malodorous. Without change Neuro: COMMON NORMALS: patient oriented x3 and moves all extremities SENSORIUM/ORIENTATION: Yes alert Skin: COMMON NORMALS: no rashes or lesions noted GENERAL SKIN EXAM: no rashes or lesions noted Data 07/04/24 04:08 07/04/24 04:08 A&P Assessment and plan (1) Acute respiratory failure with hypoxia: (2) COVID-19: (3) Acute kidney injury: (4) Transaminitis: (5) Sacral decubitus ulcer, stage III: (6) Unstageable pressure ulcer of heel: (7) Severe protein-calorie malnutrition: Plan Tamela Wahl is a 84 yo woman w/ HTN, HLD, non-IDDM2, hx of a CVA, who was brought to the ED on 07/01/2024 from [facility] for increasing, congestion, and dyspnea, such that she had to be placed on 2L NC O2, and she does not require O2 at baseline. She is being admitted from the ED for acute hypoxic respiratory failure secondary to COVID-19 infection for further management In the ED, her vital signs were within normal limits. Her labs are significant for leukocytosis of 13.75, potassium of 3.3, BUN/Cr of 78/2.5 (baseline of 34/1.1 as of 09/2023). Her CXR showed no acute findings. She was given dexamethasone 10 mg IVP x 1 and 1 L NS and admitted for further management. #FLAKITO: Reviewed BUN, creatinine, anion gap, bicarb, potassium, phosphorus, magnesium. Noted with improvement in renal function. BUN down to 59, creatinine down to 2.1. Albumin low 2.8. Will give additional albumin dose. Monitor intake and output. Reassess renal function. Discussed with her. Discharge deferred for now pending proving kidney function, pending additional assessment of PAD with possible revascularization. Review arterial duplex of lower extremity with noted severe peripheral artery disease, features of total occlusion of posterior tibial artery on the right side. Recheck renal function. Monitor intake and output. Severe hypokalemia: Received Additional replacement. Normal magnesium. Recheck chemistry. #Malodorous & Unstageable R. heel ulcer: Reassess renal function/FLAKITO Reviewed arterial duplex, as above. Would benefit from further assessment for possible revascularization, however, currently impeded by an improving renal function. Will reassess respiratory function, renal function. Monitor showing improvement consider consultation for debridement. Dark eschar, although with drainage, malodor. On Zosyn WBC count increased up to 16.66, although may be partially secondary to steroid. Reviewed blood culture, so far negative. # Severe COVID-19 pneumonia: Continue treatment of improving severe COVID-19 pneumonia. So far has weaned down to room air. Reassess, if continues to do well, discontinue Decadron. Continue Decadron. Monitor for risk of encephalopathy, hypertension, hyperglycemia with Dexamethasone. Oxygen support as needed. Wean as tolerated. Lovenox VTE prophylaxis. Antitussive as needed. Discussed with nursing, respite therapist, rn case management. #Acute hypoxic respiratory failure: Respiratory failure resolved. #Transaminits: likely due to COVID-19. Repeat chemistry. #Stage III sacrococcygeal ulcer: Continue repositioning as condition requires. Add nutritional supplement. Dietitian consultation. #Severe Protein Calorie Malnutrition: Consult Paper Reeler for recs. #HTN: Hold meds at this time #HLD: Hold meds at this time #non-IDDM2: Monitor glucose. Low dose sliding scale for meals and bedtime ordered. DVT ppx: Lovenox 30 Code status:DNR/DNI. Attestations Medical Necessity Statement*: Continue admission for assessment of management of FLAKITO, nonhealing ulcer with malodorous discharge of the right heel, with severe peripheral chill disease, severe COVID-19 pneumonia. and High MDM includes described risk of complication, morbidity or mortality of management as documented Diagnoses Acute respiratory failure with hypoxia J96.01 COVID-19 U07.1 Acute kidney injury N17.9 Transaminitis R74.01 Sacral decubitus ulcer, stage III L89.153 Unstageable pressure ulcer of heel L89.600 Severe protein-calorie malnutrition E43
[2024-07-04] MEDS: sennosides 8.6 mg Tablet 17.2 MG PO (21:30)
[2024-07-04] MEDS: enoxaparin 30 mg/0.3 mL Syringe SUBCUT (21:31)
[2024-07-04] MEDS: albumin 25 G/100 ML BAG 60 G IV (21:50)
[2024-07-05] VITALS (12 sets, daily range): BP systolic 139–183; BP diastolic 65–77; PULSE 64–78; RESP 16–18; TEMP 36.3–37.2; O2SAT 90–94; BMI 15.4
[2024-07-05] MEDS: piperacillin-tazobactam 3.375 GM in sodium chloride 0.9% (plus) 50 ML IV ×3 (01:02→23:49)
[2024-07-05] MEDS: ipratropium-albuterol 3 mL Neb INHALATION ×4 (02:57→20:40)
[2024-07-05 04:43] LABS: Basophils % 0.1 %; Hematocrit 28.8 % (36-47); Lymphocytes # 0.6 10^3/uL (0.8-4.8); Lymphocytes % 3.2 %; Mean Corpuscular HGB Conc 31.3 g/dL (30-55); Mean Corpuscular Hemoglobin 24.6 pg (27-33); Mean Corpuscular Volume 78.7 fl (85-98); Mean Platelet Volume 10.6 fL (7.4-10.4); Monocytes # 0.7 10^3/uL (0.2-0.9); Monocytes % 3.5 %; Neutrophils # 17.71 10^3/uL (1.8-7.7); Neutrophils % 92.2 %; Nucleated Red Blood Cells % 0 %; Platelet Count 329 10^3/cmm (157-399); Red Blood Count 3.66 10^6/uL (3.85-5.65); Red Cell Distribution Width 17.6 % (12.1-15.1); White Blood Count 19.23 10^3/uL (3.29-11.43)
[2024-07-05 05:11] LABS: Anion Gap 19.9 (5-19); Blood Urea Nitrogen 46 mg/dL (8-23); Calcium 8.6 mg/dL (8.5-10.5); Carbon Dioxide 20 mmol/L (22-29); Chloride 101 mmol/L (98-107); Creatinine Clr Calc Pharmacy 19.3012; Glucose 154 mg/dL (65-115); Osmolality Calculated 301 mOsm/kg (285-295); Phosphorus 2.3 mg/dL (2.5-4.5); Sodium 138 mmol/L (136-145)
[2024-07-05 05:24] LABS: Potassium 2.9 mmol/L (3.5-5.1)
[2024-07-05 06:47] LABS: Glucose Point of Care 169 mg/dL (70-110)
[2024-07-05] MEDS: lidocaine 1% 5 ML in potassium chloride premix 100 ML 26.25 ML IV (06:50)
[2024-07-05] MEDS: insulin lispro 100 unit/1 mL SUBCUT ×3 (07:48→22:21)
[2024-07-05] MEDS: docusate sodium 100 mg Capsule 200 MG PO (08:45)
[2024-07-05] MEDS: dexamethasone 10 mg/mL INJ 6 MG PO (08:45)
[2024-07-05] MEDS: pantoprazole 40 mg SDV IVP (08:46)
--- NOTE | 2024-07-05 11:20 | P.PN_ITS ---
Subjective 2 Subjective: She states overall she is doing okay. Denies any new worsening or developments. Vitals/I&O/Wt Last Vital Signs Temp 97.8 F 07/05/24 07:48 Pulse 64 07/05/24 08:02 Resp 18 07/05/24 08:02 BP 176/65 07/05/24 07:48 Pulse Ox 93 07/05/24 08:02 O2 Del Method Room Air 07/05/24 08:02 O2 Flow Rate 2 07/02/24 07:55 07/04/24 07/05/24 07/05/24 22:59 06:59 14:59 Intake Total 155 / 155 390 / 545 305 / 305 Balance 155 / 155 390 / 545 305 / 305 Weight last 48 hrs Weight 48.761 kg Weight 48.761 kg Physical Exam 2 Narrative: Mildly hard of hearing. Awake. Const: COMMON NORMALS: patient oriented x3 and alert GENERAL APPEARANCE: c ooperative ORIENTATION/CONSCIOUSNESS: Yes awake HENMT: COMMON NORMALS: oropharynx normal Neck/C-Spine: COMMON NORMALS: no JVD Resp: COMMON NORMALS: normal respiratory effort and clear to auscultation bilaterally AUSCULTATION: clear to auscultation bilaterally Cardio: COMMON NORMALS: no JVD, regular rhythm, S1 normal heart sound present, S2 normal heart sound present and No murmurs present (Cardio) RHYTHM: regular rhythm HEART SOUNDS: S1 normal heart sound present and S2 normal heart sound present GI: COMMON NORMALS: Normal to inspection, nondistended, normoactive bowel sounds present, Soft to palpation and non-tender PALPATION: Yes Soft to palpation Extremity: COMMON NORMALS: no joint enlargement and no pedal edema OTHER: Black eschar covering inferior posterior portion of the right heel, 1.5 cm in diameter, malodorous. Without change Neuro: COMMON NORMALS: patient oriented x3 and moves all extremities S ENSORIUM/ORIENTATION: Yes alert Skin: COMMON NORMALS: no rashes or lesions noted GENERAL SKIN EXAM: no rashes or lesions noted Data 07/05/24 04:21 07/05/24 04:21 A&P Assessment and plan (1) Acute respiratory failure with hypoxia: (2) COVID-19: (3) Acute kidney injury: (4) Transaminitis: (5) Sacral decubitus ulcer, stage III: (6) Unstageable pressure ulcer of heel: (7) Severe protein-calorie malnutrition: Edna Wahl is a 84 yo woman w/ HTN, HLD, non-IDDM2, hx of a CVA, who was brought to the ED on 07/01/2024 from [facility] for increasing, congestion, and dyspnea, such that she had to be placed on 2L NC O2, and she does not require O2 at baseline. She is being admitted from the ED for acute hypoxic respiratory failure secondary to COVID-19 infection for further management In the ED, her vital signs were within normal limits. Her labs are significant for leukocytosis of 13.75, potassium of 3.3, BUN/Cr of 78/2.5 (baseline of 34/1.1 as of 09/2023). Her CXR showed no acute findings. She was given dexamethasone 10 mg IVP x 1 and 1 L NS and admitted for further management. #FLAKITO: With continued improvement. Reviewed BUN, creatinine, anion gap, bicarb, potassium. Creatinine is coming down to 1.7. Monitor intake and output. Reassess renal function. Discussed with cardiology. Request consultation regarding peripheral artery disease. Reviewed cardiology note. Discussed with nursing, field case manager. Discharge deferred for now pending proving kidney function, pending additional assessment of PAD with possible revascularization. Review arterial duplex of lower extremity with noted severe peripheral artery disease, features of total occlusion of posterior tibial artery on the right side. Recheck renal function. Monitor intake and output. #Malodorous & Unstageable R. heel ulcer: Reassess renal function/FLAKITO. Improving renal function. Discussed with tipping machine operator automatic. Appreciate consultation. Reviewed cardiology note. At this time she does have DP pulses, and ulceration is more likely of pressure etiology rather than arterial insufficiency, intervention at this time would not be recommended given also additional risk with renal insufficiency. Will reach out to podiatry. On Zosyn. Monitor for risk of cytopenia, C. difficile. Blood cultures so far remaining negative on review. Hypokalemia: Additional potassium supplemented. Normal magnesium. Recheck chemistry. # Severe COVID-19 pneumonia: Noted some hypoxia, saturation down to 88% yesterday. Today 90%. Continue Decadron for tonight. Reassess. Consider discontinuation if improving. Monitor for risk of encephalopathy, hypertension, hyperglycemia with Dexamethasone. Oxygen support as needed. Wean as tolerated. Lovenox VTE prophylaxis. Antitussive as needed. Discussed with nursing, field case manager. #Acute hypoxic respiratory failure: Respiratory failure resolved. #Transaminits: likely due to COVID-19. Repeat chemistry. #Stage III sacrococcygeal ulcer: Continue repositioning as condition requires. Add nutritional supplement. Dietitian consultation. #Severe Protein Calorie Malnutrition: Consult Manifold Operator for recs. #HTN: Hold meds at this time #HLD: Hold meds at this time #non-IDDM2: Monitor glucose. Low dose sliding scale for meals and bedtime ordered. DVT ppx: Lovenox 30 Code status:DNR/DNI. Attestations 2 Medical Necessity Statement*: Continue admission for assessment of management of FLAKITO, nonhealing ulcer with malodorous discharge of the right heel, with severe peripheral chill disease, severe COVID-19 pneumonia. and High MDM includes amount and/or complexity of data reviewed/ordered [ previous or external records, resulted lab(s)/test(s), ordered lab(s)/test(s) and other healthcare professional discussion] and described risk of complication, morbidity or mortality of management as documented Diagnoses Acute respiratory failure with hypoxia J96.01 COVID-19 U07.1 Acute kidney injury N17.9 Transaminitis R74.01 Sacral decubitus ulcer, stage III L89.153 Unstageable pressure ulcer of heel L89.600 Severe protein-calorie malnutrition E43
[2024-07-05 11:29] LABS: Glucose Point of Care 224 mg/dL (70-110)
[2024-07-05 16:11] LABS: Glucose Point of Care 79 mg/dL (70-110)
--- NOTE | 2024-07-05 19:18 | P.CONIM_ITS ---
<Statement entered by Martín Kaplan M.D - 07/06/24 08:06> Patient was evaluated and cared for in conjunction with an advanced practice practitioner.? I personally examined the patient and reviewed the chart and all pertinent data including imaging, telemetry, and laboratory results.? I discussed the patient in detail with the advanced practice practitioner.? Please see? their note for complete consult note, testing results and agreed upon plan of care for the patient. Patient has a chronic ulcer at pressure point on right heel. She denies pain. GENERAL: Patient is alert HEART: Regular S1 and S2 LUNGS: Diminished air entry bilaterally CENTRAL NERVOUS SYSTEM: Grossly nonfocal. EXTREMITIES: Lower extremities with out edema bilaterally. On right foot has bounding palpable DP pulse. PT is dopplerable. ASSESSMENT AND PLAN (1) Unstageable pressure ulcer of heel: (2) DM type 2 (diabetes mellitus, type 2): (3) Acute kidney injury: (4) UTI (urinary tract infection): (5) COVID-19: (6) Peripheral arterial disease: Patient's right heel ulcer is a pressure ulcer. Has good DP palpable pulse. Posterior tibial artery is dopplerable. Likely from collaterals as ultrasound was showing occluded PT. Patient has COVID and FLAKITO. She is mostly in the bed and has sacral and heel pressure ulcers, likelihood of healing with possible revascularization of posterior tibial artery is low. Potential benefit of revascularization attempt is outweighed by risk given significant FLAKITO. At this time continue with medical therapy. Can be followed as an outpatient to reassess if will benefit from revascularization Thank you for involving us with care of this patient. Please call with questions. Providers/Reason For Consult 2 Consulting Physician/Specialty*: Dr. Kaplan Reason for Consult*: Severe pad with right heel ulcer Requesting Physician: Dr. Bergeron Attending Physician: Gus Bergeron Primary Care Provider: Antoni Katz DO History of Present Illness History of Present Illness Tamela Wahl is an 84 year old female with a history of type 2 diabetes, sacral ulcer, pressure ulcer of the heel, severe protein-calorie malnutrition who came to the ED on 07/01/2024 a correction for increasing, congestion, and dyspnea requiring O2. She had increased wbc on admission, was given 1 L of fluid, and was found to have Covid-19. ANY with arterial US was performed that showed patient had an occluded PT on the right with biphasic flow in the left DP. ANY was 0.4 on the right. I am unsure how long the ulcer to the right heel has been there, as patient is a poor historian. She is able to tell me her legs do not hurt at this time. On my assessment, she has warm bilateral lower extremities with palpable 2+ DP and 1+ palpable and dopplered PT. Right heel ulcer was seen. No redness to the area. There is yellow slough that covers most of the wound bed. No odor noted. Review of Systems 2 Narrative: Denies pain in her lower extremities unable to obtain much of a history or review of systems, as patient is not alert and oriented Medications/Allergies Home Medications Medication Instructions Recorded Confirmed Last Taken Type levothyroxine 50 mcg tablet 50 mcg PO DAILY 09/02/23 07/01/24 09/01/23 07:00 History (Levo-T) rosuvastatin 20 mg tablet 20 mg PO BEDTIME 09/02/23 07/02/24 2 Days Ago History ~08/31/23 acetaminophen 325 mg capsule 325 mg PO QID PRN pain 09/22/23 07/01/24 Unknown History hydrocodone 5 mg-acetaminophen 325 See Rx Instructions .Route 09/22/23 07/02/24 Unknown History mg tablet .COMPLEX PRN Pain insulin degludec 100 unit/mL (3 6 unit SUBCUT BEDTIME 07/01/24 07/01/24 Unknown History mL) subcutaneous pen (Tresiba FlexTouch U-100 insulin) ondansetron HCl 4 mg tablet 4 mg PO PRN n/v 07/01/24 07/01/24 Unknown History magnesium hydroxide 400 mg/5 mL 30 ml PO Q24H PRN Constipation 07/02/24 07/02/24 Unknown History oral suspension (Milk of Magnesia) nicotine 14 mg/24 hr daily 1 patch transdermal Q24H 07/02/24 07/02/24 Unknown History transdermal patch polyethylene glycol 3350 17 See Rx Instructions .Route .COMPLEX 07/02/24 07/02/24 Unknown History gram/dose oral powder (Miralax) sertraline 25 mg tablet 25 mg PO BEDTIME 07/02/24 07/02/24 Unknown History sertraline 50 mg tablet 50 mg PO BEDTIME 07/02/24 07/02/24 Unknown History Allergies Allergy/AdvReac Type Severity Reaction Status Date / Time codeine Allergy Unknown Unknown Verified 07/01/24 17:42 latex Allergy Unknown Unknown Verified 07/01/24 17:42 Current Medications Generic Name Dose Route Start Last Admin Trade Name Ambrosioq PRN Reason Stop Dose Admin Albuterol/Ipratropium 3 ml 07/02/24 02:00 07/05/24 13:55 Ipratropium-Albuterol 3 Ml Neb INHALATION 3 ml Q6H.RESP JUJU Administration Dexamethasone 6 mg 07/03/24 09:00 07/05/24 08:45 Dexamethasone 10 Mg/Ml Inj PO 6 mg DAILY JUJU Administration Docusate Sodium 200 mg 07/02/24 09:00 07/05/24 08:45 Docusate Sodium 100 Mg Capsule PO 200 mg DAILY JUJU Administration Enoxaparin Sodium 30 mg 07/01/24 21:00 07/04/24 21:31 Enoxaparin 30 Mg/0.3 Ml Syringe SUBCUT 30 mg Q24H JUJU Administration Piperacillin Sod/Tazobactam 50 mls @ 12.5 mls/hr 07/02/24 00:30 07/05/24 16:09 Sod 3.375 gm/ Sodium Chloride IV Infused Q12H JUJU Infusion Protocol Insulin Human Lispro 0 unit 07/02/24 08:00 07/05/24 16:27 Insulin Lispro 100 Unit/1 Ml SUBCUT Not Given TIDWM JUJU Protocol Insulin Human Lispro 0 unit 07/02/24 21:00 07/04/24 21:31 Insulin Lispro 100 Unit/1 Ml SUBCUT 1 unit BEDTIME JUJU Administration Protocol Pantoprazole Sodium 40 mg 07/03/24 09:00 07/05/24 08:46 Pantoprazole 40 Mg Sdv IVP 40 mg DAILY JUJU Administration Senna 17.2 mg 07/01/24 21:00 07/04/24 21:30 Sennosides 8.6 Mg Tablet PO 17.2 mg BEDTIME JUJU Administration PFSH Acute 2 PFSH: Medical History (Updated 07/05/24 @ 19:30 by Alexa Rosales NP) Smoking addiction CVA (cerebral vascular accident) Hypercholesterolemia HTN (hypertension) DM type 2 (diabetes mellitus, type 2) Surgical History (Updated 07/01/24 @ 23:59 by Laila Sweeney MD) H/O toe surgery R. great toe amputation Social History Smoking and tobacco/nicotine status: current every day tobacco/nicotine user Second hand smoke exposure: No Alcohol intake: never Substance/Drug Use: never Vitals/I&O/Wt Last Vital Signs Temp 98.2 F 07/05/24 16:00 Pulse 69 07/05/24 16:00 Resp 18 07/05/24 16:00 BP 139/77 07/05/24 16:00 Pulse Ox 94 07/05/24 16:00 O2 Del Method Room Air 07/05/24 16:00 O2 Flow Rate 2 07/02/24 07:55 07/05/24 07/05/24 07/05/24 06:59 14:59 22:59 Intake Total 390 / 545 425 / 425 460 / 885 Balance 390 / 545 425 / 425 460 / 885 Weight last 48 hrs Weight 107 lb 8 oz Weight 107 lb 8 oz Physical Exam 2 Narrative: General- Appears malnourished Cardiac- regular rate and rhythm, s1 s2 normal, no murmurs Respiratory- clear throughout all lung gardner Extremities- Right heel with ulcer as stated in HPI, no redness, 90% covered with slough no odor noted Pulses- 2+ palpable and dopplered right AT and 1+ palpable DP, bilateral lower extremities warm, 2 second capillary refill bilaterally Data 07/05/24 04:21 07/05/24 04:21 A&P Assessment and plan (1) Unstageable pressure ulcer of heel: (2) DM type 2 (diabetes mellitus, type 2): (3) Acute kidney injury: (4) UTI (urinary tract infection): (5) COVID-19: (6) Peripheral arterial disease: Plan At this time, patient has right heel pressure ulcer with PAD. US shows good one vessel runoff via the DP. PT is occluded on US, although she may have good collaterals as I was able to doppler a pulse here. She has warm bilateral lower extremities with palpable pulses and no s/s of ischemia. No indications for emergent interventions at this time. Patient currently has covid with FLAKITO. We may consider intervention on an outpatient basis after patient has recovered. Thank you for allowing us to care for this patient. Coding Level of Care Code Acute Code for Chg Fwd Diagnoses Unstageable pressure ulcer of heel L89.600 DM type 2 (diabetes mellitus, type 2) E11.9 Acute kidney injury N17.9 UTI (urinary tract infection) N39.0 COVID-19 U07.1 Peripheral arterial disease I73.9
[2024-07-05] MEDS: sennosides 8.6 mg Tablet 17.2 MG PO (20:16)
[2024-07-05] MEDS: enoxaparin 30 mg/0.3 mL Syringe SUBCUT (20:16)
[2024-07-05 20:24] LABS: Glucose Point of Care 434 mg/dL (70-110)
[2024-07-05 22:10] LABS: Glucose Point of Care 388 mg/dL (70-110)
[2024-07-06] VITALS (9 sets, daily range): BP systolic 120–171; BP diastolic 50–76; PULSE 73–84; RESP 14–18; TEMP 36.4–37.2; O2SAT 91–93
[2024-07-06] MEDS: ipratropium-albuterol 3 mL Neb INHALATION ×3 (02:31→20:03)
[2024-07-06 06:13] LABS: Basophils % 0.1 %; Hematocrit 31.1 % (36-47); Lymphocytes # 0.7 10^3/uL (0.8-4.8); Lymphocytes % 2.9 %; Mean Corpuscular HGB Conc 31.5 g/dL (30-55); Mean Corpuscular Hemoglobin 24.5 pg (27-33); Mean Corpuscular Volume 77.8 fl (85-98); Mean Platelet Volume 10.9 fL (7.4-10.4); Monocytes # 0.7 10^3/uL (0.2-0.9); Neutrophils # 20.56 10^3/uL (1.8-7.7); Nucleated Red Blood Cells % 0 %; Platelet Count 333 10^3/cmm (157-399); Red Cell Distribution Width 17.4 % (12.1-15.1); White Blood Count 22.13 10^3/uL (3.29-11.43)
[2024-07-06 06:26] LABS: Glucose Point of Care 154 mg/dL (70-110)
[2024-07-06 06:31] LABS: Anion Gap 20.9 (5-19); Blood Urea Nitrogen 47 mg/dL (8-23); Calcium 8.3 mg/dL (8.5-10.5); Carbon Dioxide 21 mmol/L (22-29); Chloride 99 mmol/L (98-107); Glucose 132 mg/dL (65-115); Osmolality Calculated 300 mOsm/kg (285-295); Sodium 138 mmol/L (136-145)
[2024-07-06 06:45] LABS: Potassium 2.9 mmol/L (3.5-5.1)
[2024-07-06] MEDS: dexamethasone 10 mg/mL INJ 6 MG PO (08:09)
[2024-07-06] MEDS: pantoprazole 40 mg SDV IVP (08:09)
--- NOTE | 2024-07-06 11:13 | P.CONIM_ITS ---
Providers/Reason For Consult 2 Consulting Physician/Specialty*: Rudy Gardiner.P.M./podiatry Reason for Consult*: Right posterior heel ulcer Attending Physician: Gus Bergeron Primary Care Provider: Antoni Katz DO History of Present Illness History of Present Illness Tamela Wahl is a 84 year old female who presented to the emergency department on 07/01/2024 from [facility] for worsening chest congestion and dyspnea. She was admitted to the hospital for COVID-pneumonia. Further workup revealed right posterior heel ulcer. This was noted to be unstageable on admission. However, eschar has sloughed off and wound is now exposed. Podiatry was consulted to evaluate and provide treatment recommendations. Review of Systems 2 General: Reports: 10 or more systems reviewed and unremarkable except in HPI and below Const: Denies: fever(s), chills, body aches or change in appetite Eyes: Denies: change in vision or blurry vision Card: Denies: chest pain, palpitations or irregular heart rhythm Resp: Denies: dyspnea GI: Denies: abdominal pain, nausea, vomiting or diarrhea Musc: Reports: joint stiffness Skin/Breast: Reports: non-healing lesions and lesions Neuro: Reports: numbness in extremities Medications/Allergies Home Medications Medication Instructions Recorded Confirmed Last Taken Type levothyroxine 50 mcg tablet 50 mcg PO DAILY 09/02/23 07/01/24 09/01/23 07:00 History (Levo-T) rosuvastatin 20 mg tablet 20 mg PO BEDTIME 09/02/23 07/02/24 2 Days Ago History ~08/31/23 acetaminophen 325 mg capsule 325 mg PO QID PRN pain 09/22/23 07/01/24 Unknown History hydrocodone 5 mg-acetaminophen 325 See Rx Instructions .Route 09/22/23 07/02/24 Unknown History mg tablet .COMPLEX PRN Pain insulin degludec 100 unit/mL (3 6 unit SUBCUT BEDTIME 07/01/24 07/01/24 Unknown History mL) subcutaneous pen (Tresiba FlexTouch U-100 insulin) ondansetron HCl 4 mg tablet 4 mg PO PRN n/v 07/01/24 07/01/24 Unknown History magnesium hydroxide 400 mg/5 mL 30 ml PO Q24H PRN Constipation 07/02/24 07/02/24 Unknown History oral suspension (Milk of Magnesia) nicotine 14 mg/24 hr daily 1 patch transdermal Q24H 07/02/24 07/02/24 Unknown History transdermal patch polyethylene glycol 3350 17 See Rx Instructions .Route .COMPLEX 07/02/24 07/02/24 Unknown History gram/dose oral powder (Miralax) sertraline 25 mg tablet 25 mg PO BEDTIME 07/02/24 07/02/24 Unknown History sertraline 50 mg tablet 50 mg PO BEDTIME 07/02/24 07/02/24 Unknown History Allergies Allergy/AdvReac Type Severity Reaction Status Date / Time codeine Allergy Unknown Unknown Verified 07/01/24 17:42 latex Allergy Unknown Unknown Verified 07/01/24 17:42 Current Medications Generic Name Dose Route Start Last Admin Trade Name Freq PRN Reason Stop Dose Admin Albuterol/Ipratropium 3 ml 07/02/24 02:00 07/06/24 10:45 Ipratropium-Albuterol 3 Ml Neb INHALATION Not Given Q6H.RESP JUJU Dexamethasone 6 mg 07/03/24 09:00 07/06/24 08:09 Dexamethasone 10 Mg/Ml Inj PO 6 mg DAILY JUJU Administration Enoxaparin Sodium 30 mg 07/01/24 21:00 07/05/24 20:16 Enoxaparin 30 Mg/0.3 Ml Syringe SUBCUT 30 mg Q24H JUJU Administration Piperacillin Sod/Tazobactam 50 mls @ 12.5 mls/hr 07/02/24 00:30 07/06/24 04:04 Sod 3.375 gm/ Sodium Chloride IV Infused Q12H JUJU Infusion Protocol Insulin Human Lispro 0 unit 07/02/24 08:00 07/06/24 07:47 Insulin Lispro 100 Unit/1 Ml SUBCUT Not Given TIDWM JUJU Protocol Insulin Human Lispro 0 unit 07/02/24 21:00 07/05/24 22:21 Insulin Lispro 100 Unit/1 Ml SUBCUT 6 unit BEDTIME JUJU Administration Protocol Pantoprazole Sodium 40 mg 07/03/24 09:00 07/06/24 08:09 Pantoprazole 40 Mg Sdv IVP 40 mg DAILY JUJU Administration Senna 17.2 mg 07/01/24 21:00 07/05/24 20:16 Sennosides 8.6 Mg Tablet PO 17.2 mg BEDTIME JUJU Administration PFSH Acute 2 PFSH: Medical History (Updated 07/06/24 @ 11:21 by Carlin Mccray DPM) Smoking addiction CVA (cerebral vascular accident) Hypercholesterolemia HTN (hypertension) DM type 2 (diabetes mellitus, type 2) Surgical History (Updated 07/01/24 @ 23:59 by Laila Sweeney MD) H/O toe surgery R. great toe amputation Social History Smoking and tobacco/nicotine status: current every day tobacco/nicotine user Second hand smoke exposure: No Alcohol intake: never Substance/Drug Use: never Vitals/I&O/Wt Last Vital Signs Temp 98.5 F 07/06/24 08:00 Pulse 81 07/06/24 08:00 Resp 16 07/06/24 08:00 BP 171/76 07/06/24 08:00 Pulse Ox 91 07/06/24 08:00 O2 Del Method Room Air 07/06/24 08:00 O2 Flow Rate 2 07/02/24 07:55 07/05/24 07/06/24 07/06/24 22:59 06:59 14:59 Intake Total 680 / 1105 490 / 1595 50 / 50 Balance 680 / 1105 490 / 1595 50 / 50 Weight last 48 hrs Weight 106 lb 8 oz Weight 107 lb 8 oz Physical Exam 2 Narrative: BELOW IS A FOCUSED LOWER EXTREMITY EXAM GENERAL: A&O x 3 VASCULAR: DP/PT pulses diminished with delayed capillary refill DERMATOLOGICAL: Skin turgor and temperature is within normal limits. No interdigital maceration noted. Full-thickness ulceration to posterior aspect of right heel overlying Achilles tendon with epithelializing wound borders. Mixed fibrogranular base. No active drainage no surrounding erythema no underlying fluctuance or signs of deep space abscess. No exposure of Achilles tendon. MUSCULOSKELETAL: Cavus foot type with contracture lesser digits bilaterally. No pain to palpation of periwound area right posterior heel NEUROLOGICAL: Neurological sensation to the affected foot and ankle is present through L4-S1 dermatomes with no hyper/hypoesthesias, negative Tinel or Valleix's sign Data 07/06/24 05:44 07/06/24 05:44 A&P Assessment and plan (1) Decubitus ulcer of heel, stage 3: Plan -Right heel wound stage III, stable -Labs and vitals reviewed -WBC 22.13 -VSS -Diet: Okay for diet from podiatry standpoint. No surgical intervention warranted -Stable posterior heel wound. No active drainage, no deep space abscess or fluctuance. Wound borders appear to be epithelializing and healing. Right posterior heel is unlikely source for leukocytosis as wound is grossly stable. Continue with local wound care and offloading. Betadine wet-to-dry dressing was applied to posterior heel during today's encounter. -Pain Mgmt: Per primary team -Weight bearing: No weightbearing restrictions -Dressings: Daily dressing changes consisting of Hydrofera Blue, dry sterile dressing. Wound care orders to be placed. -Continue current Abx therapy until ID and Sensitivity results -Trend labs -Discharge plan: Patient is okay to discharge from podiatry standpoint. Recommend follow-up with wound care within 1 week of discharge from hospital. Continue offloading heel after discharge from hospital as pressure is the driving force for patient's wound -Podiatry will continue to round on patient daily and provide recommendations Coding Level of Care Code Acute Code for [facility] Fwd Diagnoses Decubitus ulcer of heel, stage 3 L89.603
[2024-07-06 12:05] LABS: Glucose Point of Care 253 mg/dL (70-110)
[2024-07-06] MEDS: lidocaine 1% 5 ML in potassium chloride premix 100 ML 52.5 ML IV (12:15)
[2024-07-06] MEDS: potassium chloride ER 20 mEq Tablet PO (12:16)
--- NOTE | 2024-07-06 12:40 | PC.SOCIAL ---
IMM Update Pg. 2 of IMM updated and reviewed. Copy provided at bedside.
[2024-07-06] MEDS: piperacillin-tazobactam 3.375 GM in sodium chloride 0.9% (plus) 50 ML IV (14:30)
[2024-07-06] MEDS: acetaminophen 325 mg Tablet 650 MG PO (14:30)
[2024-07-06 15:53] LABS: Glucose Point of Care 282 mg/dL (70-110)
[2024-07-06 16:27] LABS: C.Diff PCR (Lab) POSITIVE (Negative)
[2024-07-06] MEDS: vancomycin 125 mg Capsule PO ×2 (17:57→20:21)
[2024-07-06] MEDS: insulin lispro 100 unit/1 mL SUBCUT ×2 (17:57→21:40)
[2024-07-06] MEDS: enoxaparin 30 mg/0.3 mL Syringe SUBCUT (20:21)
[2024-07-06] MEDS: sennosides 8.6 mg Tablet 17.2 MG PO (20:21)
[2024-07-06 20:46] LABS: Glucose Point of Care 264 mg/dL (70-110)
--- NOTE | 2024-07-06 21:09 | PM.PN ---
Subjective Subjective: Very scant oral intake reported by nursing staff, as well as some additional diarrhea. She herself denies pain discomfort or any complaints. States that she will try to eat something. Vitals/I&O/Wt Last Vital Signs Temp 97.6 F 07/06/24 20:00 Pulse 77 07/06/24 20:06 Resp 16 07/06/24 20:06 BP 120/65 07/06/24 20:00 Pulse Ox 93 07/06/24 20:06 O2 Del Method Room Air 07/06/24 20:06 O2 Flow Rate 2 07/02/24 07:55 07/06/24 07/06/24 07/06/24 06:59 14:59 22:59 Intake Total 490 / 1595 375 / 375 290 / 665 Balance 490 / 1595 375 / 375 290 / 665 Weight last 48 hrs Weight 48.308 kg Weight 48.761 kg Physical Exam Narrative: Mildly hard of hearing. Awake. Const: COMMON NORMALS: alert GENERAL APPEARANCE: cooperative ORIENTATION/CONSCIOUSNESS: Yes awake HENMT: COMMON NORMALS: oropharynx normal Neck/C-Spine: COMMON NORMALS: no JVD Resp: COMMON NORMALS: normal respiratory effort and clear to auscultation bilaterally AUSCULTATION: clear to auscultation bilaterally Cardio: COMMON NORMALS: no JVD, regular rhythm, S1 normal heart sound present, S2 normal heart sound present and No murmurs present (Cardio) RHYTHM: regular rhythm HEART SOUNDS: S1 normal heart sound present and S2 normal heart sound present GI: COMMON NORMALS: Normal to inspection, nondistended, normoactive bowel sounds present, Soft to palpation and non-tender PALPATION: Yes Soft to palpation Extremity: COMMON NORMALS: no joint enlargement and no pedal edema OTHER: Loss of eschar inferior posterior portion of the right heel. Exposed subcutaneous tissue, stage III ulcer. Neuro: COMMON NORMALS: moves all extremities SENSORIUM/ORIENTATION: Yes alert Skin: COMMON NORMALS: no rashes or lesions noted GENERAL SKIN EXAM: no rashes or lesions noted Data 07/06/24 05:44 07/06/24 05:44 Micro: Microbiology 07/01/24 19:04 Blood Culture - Final Blood NO GROWTH AFTER 5 DAYS 07/01/24 19:01 Blood Culture - Final Blood NO GROWTH AFTER 5 DAYS A&P Assessment and plan (1) Acute respiratory failure with hypoxia: (2) COVID-19: (3) Acute kidney injury: (4) Transaminitis: (5) Sacral decubitus ulcer, stage III: (6) Unstageable pressure ulcer of heel: (7) Severe protein-calorie malnutrition: Edna Wahl is a 84 yo woman w/ HTN, HLD, non-IDDM2, hx of a CVA, who was brought to the ED on 07/01/2024 from [facility] for increasing, congestion, and dyspnea, such that she had to be placed on 2L NC O2, and she does not require O2 at baseline. She is being admitted from the ED for acute hypoxic respiratory failure secondary to COVID-19 infection for further management In the ED, her vital signs were within normal limits. Her labs are significant for leukocytosis of 13.75, potassium of 3.3, BUN/Cr of 78/2.5 (baseline of 34/1.1 as of 09/2023). Her CXR showed no acute findings. She was given dexamethasone 10 mg IVP x 1 and 1 L NS and admitted for further management. Leukocytosis: Leukocytosis up to 22 on review of CBC today with continued rise. Discussed with podiatry, appreciate assessment of the right heel. So far doing well. Continue wound care. Follow-up with wound care clinic. Not likely source of leukocytosis. With diarrhea, requested C. difficile. C. difficile reviewed, returned positive. Started on oral vancomycin. Failure to thrive: She has had a progressive decline in functional capacity, has been bedridden, had declined to participate in physical therapy. Recently has been declining to eat as well. Does not have history of formally diagnosed dementia as per discussion with her friend and power of commercial litigation attorney diabetes. Susan feels that she has overall progressively been giving up on life. With known severe peripheral arterial disease, previously bypass surgery and then BKA were offered for her right lower extremity which she had declined. [facility]. Overall given poor quality of life, progressively declining functional capacity, recently also not eating, we discussed consideration of feeding support, but would not recommend feeding tube. Overall initiation of hospice care is not unreasonable. We did get the results of positive C. difficile later in the day, and so for now we are starting treatment in case it may help with loss of appetite. As per discussion once she is ready may return to prison to further reassess goals of care with primary provider. #FLAKITO: Improving FLAKITO. Creatinine down to 1.6. BUN 47. Reassess chemistry. With hypokalemia, requested potassium supplement. With continued improvement. Reviewed BUN, creatinine, anion gap, bicarb, potassium. Creatinine is coming down to 1.7. Monitor intake and output. Reassess renal function. Discussed with cardiology. Request consultation regarding peripheral artery disease. Reviewed cardiology note. Discussed with nursing, case management coordinator. Discharge deferred for now pending proving kidney function, pending additional assessment of PAD with possible revascularization. Review arterial duplex of lower extremity with noted severe peripheral artery disease, features of total occlusion of posterior tibial artery on the right side. Recheck renal function. Monitor intake and output. Hypokalemia: Replaced. Recheck chemistry. Stage III right heel ulcer: Discussed with podiatry, reviewed podiatry note. Appreciate consultation. Continue wound care, follow-up with wound care clinic. Discussed with her power of commercial litigation attorney and friend Susan. On admission with malodorous discharge, surrounding cellulitis, continues on Zosyn for now. With improvement so far. If continues to do well, discontinue Zosyn. Monitor for risk of cytopenias. Reviewed vitals, CBC, BMP, blood culture. Blood culture remaining negative. Hypokalemia: Additional potassium supplemented. Normal magnesium. Recheck chemistry. # Severe COVID-19 pneumonia: Maintaining saturation in low 90s. Decadron discontinued. Noted some hypoxia, saturation down to 88% yesterday. Today 90%. Continue Decadron for tonight. Reassess. Consider discontinuation if improving. Monitor for risk of encephalopathy, hypertension, hyperglycemia with Dexamethasone. Oxygen support as needed. Wean as tolerated. Lovenox VTE prophylaxis. Antitussive as needed. Discussed with nursing, case management coordinator. #Acute hypoxic respiratory failure: Respiratory failure resolved. #Transaminits: likely due to COVID-19. Repeat chemistry. #Stage III sacrococcygeal ulcer: Continue repositioning as condition requires. Add nutritional supplement. Dietitian consultation. #Severe Protein Calorie Malnutrition: Consult Destination Imagination Coordinator for recs. #HTN: Hold meds at this time #HLD: Hold meds at this time #non-IDDM2: Monitor glucose. Low dose sliding scale for meals and bedtime ordered. DVT ppx: Lovenox 30 Code status:DNR/DNI. Attestations Medical Necessity Statement*: Continue admission for C. difficile colitis with worsening leukocytosis, FLAKITO. Recovering from COVID infection. Goals of care discussion. Post discharge planning and arrangements. and High MDM includes amount and/or complexity of data reviewed/ordered [ previous or external records, resulted lab(s)/test(s), ordered lab(s)/test(s) and other healthcare professional discussion] and described risk of complication, morbidity or mortality of management as documented Diagnoses Acute respiratory failure with hypoxia J96.01 COVID-19 U07.1 Acute kidney injury N17.9 Transaminitis R74.01 Sacral decubitus ulcer, stage III L89.153 Unstageable pressure ulcer of heel L89.600 Severe protein-calorie malnutrition E43
[2024-07-07] VITALS (14 sets, daily range): BP systolic 99–178; BP diastolic 57–76; PULSE 72–89; RESP 16–18; TEMP 36.7–38.3; O2SAT 87–94
[2024-07-07] MEDS: ipratropium-albuterol 3 mL Neb INHALATION ×4 (02:02→21:15)
[2024-07-07] MEDS: piperacillin-tazobactam 3.375 GM in sodium chloride 0.9% (plus) 50 ML IV ×2 (02:10→14:15)
[2024-07-07 03:54] LABS: Basophils % 0.1 %; Hematocrit 31.3 % (36-47); Lymphocytes # 0.7 10^3/uL (0.8-4.8); Lymphocytes % 2.9 %; Mean Corpuscular HGB Conc 32.6 g/dL (30-55); Mean Corpuscular Hemoglobin 24.6 pg (27-33); Mean Corpuscular Volume 75.4 fl (85-98); Mean Platelet Volume 10.6 fL (7.4-10.4); Monocytes # 0.7 10^3/uL (0.2-0.9); Neutrophils # 21.03 10^3/uL (1.8-7.7); Neutrophils % 92.9 %; Nucleated Red Blood Cells % 0 %; Platelet Count 351 10^3/cmm (157-399); Red Blood Count 4.15 10^6/uL (3.85-5.65); Red Cell Distribution Width 17.5 % (12.1-15.1); White Blood Count 22.64 10^3/uL (3.29-11.43)
[2024-07-07 04:09] LABS: Anion Gap 20.4 (5-19); Blood Urea Nitrogen 45 mg/dL (8-23); Calcium 8.3 mg/dL (8.5-10.5); Carbon Dioxide 21 mmol/L (22-29); Chloride 98 mmol/L (98-107); Creatinine Clr Calc Pharmacy 23.2195; Glucose 78 mg/dL (65-115); Osmolality Calculated 292 mOsm/kg (285-295); Potassium 3.4 mmol/L (3.5-5.1); Sodium 136 mmol/L (136-145)
[2024-07-07 06:38] LABS: Glucose Point of Care 124 mg/dL (70-110)
[2024-07-07] MEDS: vancomycin 125 mg Capsule PO ×3 (11:58→21:33)
[2024-07-07] MEDS: acetaminophen 325 mg Tablet 650 MG PO (11:59)
[2024-07-07] MEDS: pantoprazole 40 mg SDV IVP (11:59)
[2024-07-07] MEDS: potassium chloride ER 20 mEq Tablet PO (12:00)
[2024-07-07] MEDS: lidocaine 1% 5 ML in potassium chloride premix 100 ML 52.5 ML IV (12:00)
[2024-07-07 12:03] LABS: Glucose Point of Care 162 mg/dL (70-110)
[2024-07-07] MEDS: insulin lispro 100 unit/1 mL SUBCUT ×2 (14:14→17:31)
[2024-07-07 16:42] LABS: Glucose Point of Care 225 mg/dL (70-110)
--- NOTE | 2024-07-07 20:46 | P.PN_ITS ---
Subjective 2 Subjective: She reports she is doing okay overall today. She denies pain or discomfort. Discussed with her she acknowledges that her functional capacity has overall significantly declined. She also has had very poor appetite, does not feel like eating. With additional discussion of goals of care she states she may be interested in hospice care [facility]. Vitals/I&O/Wt Last Vital Signs Temp 98.1 F 07/07/24 20:00 Pulse 75 07/07/24 20:00 Resp 18 07/07/24 20:00 BP 99/57 07/07/24 20:00 Pulse Ox 90 07/07/24 20:00 O2 Del Method Nasal Cannula 07/07/24 20:00 O2 Flow Rate 2 07/02/24 07:55 07/07/24 07/07/24 07/07/24 06:59 14:59 22:59 Intake Total 50 / 715 705 / 705 170 / 875 Balance 50 / 715 705 / 705 170 / 875 Weight last 48 hrs Weight 48.308 kg Weight 48.308 kg Physical Exam 2 Narrative: Mildly hard of hearing. Awake. Const: COMMON NORMALS: patient oriented x3 and alert GENERAL APPEARANCE: c ooperative ORIENTATION/CONSCIOUSNESS: Yes awake HENMT: COMMON NORMALS: oropharynx normal Neck/C-Spine: COMMON NORMALS: no JVD Resp: COMMON NORMALS: normal respiratory effort and clear to auscultation bilaterally AUSCULTATION: clear to auscultation bilaterally Cardio: COMMON NORMALS: no JVD, regular rhythm, S1 normal heart sound present, S2 normal heart sound present and No murmurs present (Cardio) RHYTHM: regular rhythm HEART SOUNDS: S1 normal heart sound present and S2 normal heart sound present GI: COMMON NORMALS: Normal to inspection, nondistended, normoactive bowel sounds present, Soft to palpation and non-tender PALPATION: Yes Soft to palpation Extremity: COMMON NORMALS: no joint enlargement and no pedal edema OTHER: Loss of eschar inferior posterior portion of the right heel. Exposed subcutaneous tissue, stage III ulcer. Neuro: COMMON NORMALS: patient oriented x3 and moves all extremities S ENSORIUM/ORIENTATION: Yes alert Skin: COMMON NORMALS: no rashes or lesions noted GENERAL SKIN EXAM: no rashes or lesions noted Data 07/07/24 03:20 07/07/24 03:20 Micro: Microbiology 07/01/24 19:04 Blood Culture - Final Blood NO GROWTH AFTER 5 DAYS 07/01/24 19:01 Blood Culture - Final Blood NO GROWTH AFTER 5 DAYS A&P Assessment and plan (1) Acute respiratory failure with hypoxia: (2) COVID-19: (3) Acute kidney injury: (4) Transaminitis: (5) Sacral decubitus ulcer, stage III: (6) Unstageable pressure ulcer of heel: (7) Severe protein-calorie malnutrition: Plan Tamela Wahl is a 84 yo woman w/ HTN, HLD, non-IDDM2, hx of a CVA, who was brought to the ED on 07/01/2024 from [facility] for increasing, congestion, and dyspnea, such that she had to be placed on 2L NC O2, and she does not require O2 at baseline. She is being admitted from the ED for acute hypoxic respiratory failure secondary to COVID-19 infection for further management In the ED, her vital signs were within normal limits. Her labs are significant for leukocytosis of 13.75, potassium of 3.3, BUN/Cr of 78/2.5 (baseline of 34/1.1 as of 09/2023). Her CXR showed no acute findings. She was given dexamethasone 10 mg IVP x 1 and 1 L NS and admitted for further management. C. difficile colitis: Today with fever 101, leukocytosis with persistence, but only minimal worsening today up to 22.64. Continue treatment of C. difficile colitis. Leukocytosis: C. difficile colitis. Continue wound care. Follow-up with wound care clinic. Heel ulcer not likely source of leukocytosis. Failure to thrive: She acknowledges overall decline in functional capacity and quality of life. Has also not been eating. Currently discussed with her treating C. difficile colitis. She may be interested in pursuing hospice upon [facility]. She has had a progressive decline in functional capacity, has been bedridden, had declined to participate in physical therapy. Recently has been declining to eat as well. Does not have history of formally diagnosed dementia as per discussion with her friend and power of criminal defense attorney diabetes. Susan feels that she has overall progressively been giving up on life. With known severe peripheral arterial disease, previously bypass surgery and then BKA were offered for her right lower extremity which she had declined. Hosp[facility] care was being considered [facility] the [facility]. Overall given poor quality of life, progressively declining functional capacity, recently also not eating, we discussed consideration of feeding support, but would not recommend feeding tube. Overall initiation of hospice care is not unreasonable. We did get the results of positive C. difficile later in the day, and so for now we are starting treatment in case it may help with loss of appetite. As per discussion once she is ready may return to [facility] to further reassess goals of care with primary provider. #FLAKITO: Reviewed creatinine, BUN, potassium. Requested to supplement hypokalemia. Recheck chemistry. Check magnesium. Improving FLAKITO. Reassess renal function. Discharge deferred for now pending proving kidney function, pending additional assessment of PAD with possible revascularization. Review arterial duplex of lower extremity with noted severe peripheral artery disease, features of total occlusion of posterior tibial artery on the right side. Recheck renal function. Monitor intake and output. Hypokalemia: Replaced additional K. Recheck chemistry. Stage III right heel ulcer: Continue wound care. Float heels. Follow-up with wound care. Discussed with podiatry, reviewed podiatry note. Appreciate consultation. Continue wound care, follow-up with wound care clinic. Discussed with her power of criminal defense attorney and friend Susan. On admission with malodorous discharge, surrounding cellulitis, continues on Zosyn for now. With improvement so far. If continues to do well, discontinue Zosyn. Monitor for risk of cytopenias. Reviewed vitals, CBC, BMP, blood culture. Blood culture remaining negative. # Severe COVID-19 pneumonia: Maintaining saturation in low 90s. Off Decadron. Noted some hypoxia, saturation down to 88% yesterday. Today 90%. Continue Decadron for tonight. Reassess. Consider discontinuation if improving. Monitor for risk of encephalopathy, hypertension, hyperglycemia with Dexamethasone. Oxygen support as needed. Wean as tolerated. Lovenox VTE prophylaxis. Antitussive as needed. #Acute hypoxic respiratory failure: Respiratory failure resolved. #Transaminits: likely due to COVID-19. Repeat chemistry. #Stage III sacrococcygeal ulcer: Continue repositioning as condition requires. Add nutritional supplement. Dietitian consultation. #Severe Protein Calorie Malnutrition: Consult Soyfreeze Operator for recs. #HTN: Hold meds at this time #HLD: Hold meds at this time #non-IDDM2: Monitor glucose. Low dose sliding scale for meals and bedtime ordered. DVT ppx: Lovenox 30 Code status:DNR/DNI. Attestations 2 Medical Necessity Statement*: Continue admission for C. difficile colitis with worsening leukocytosis, FLAKITO. Complicated by poor oral intake. Recovering from COVID infection. Goals of care discussion. Post discharge planning and arrangements. Diagnoses Acute respiratory failure with hypoxia J96.01 COVID-19 U07.1 Acute kidney injury N17.9 Transaminitis R74.01 Sacral decubitus ulcer, stage III L89.153 Unstageable pressure ulcer of heel L89.600 Severe protein-calorie malnutrition E43
[2024-07-07 20:50] LABS: Glucose Point of Care 47 mg/dL (70-110); Glucose Point of Care 53 mg/dL (70-110)
[2024-07-07 21:10] LABS: Glucose Point of Care 78 mg/dL (70-110)
[2024-07-07] MEDS: enoxaparin 30 mg/0.3 mL Syringe SUBCUT (21:33)
[2024-07-07] MEDS: sennosides 8.6 mg Tablet 17.2 MG PO (21:33)
[2024-07-08] VITALS (14 sets, daily range): BP systolic 106–171; BP diastolic 56–76; PULSE 79–94; RESP 12–20; TEMP 36.7–37.3; O2SAT 85–93
[2024-07-08] MEDS: piperacillin-tazobactam 3.375 GM in sodium chloride 0.9% (plus) 50 ML IV ×2 (01:44→14:41)
[2024-07-08] MEDS: ipratropium-albuterol 3 mL Neb INHALATION ×4 (02:28→20:35)
[2024-07-08 04:18] LABS: Glucose Point of Care 164 mg/dL (70-110)
[2024-07-08 04:37] LABS: Basophils % 0.1 %; Eosinophils % 0.1 %; Hematocrit 31.8 % (36-47); Lymphocytes # 0.7 10^3/uL (0.8-4.8); Lymphocytes % 4.9 %; Mean Corpuscular HGB Conc 32.1 g/dL (30-55); Mean Corpuscular Hemoglobin 24.5 pg (27-33); Mean Corpuscular Volume 76.3 fl (85-98); Mean Platelet Volume 10.9 fL (7.4-10.4); Monocytes # 0.6 10^3/uL (0.2-0.9); Neutrophils # 12.96 10^3/uL (1.8-7.7); Neutrophils % 89.7 %; Nucleated Red Blood Cells % 0 %; Platelet Count 266 10^3/cmm (157-399); Red Blood Count 4.17 10^6/uL (3.85-5.65); Red Cell Distribution Width 17.8 % (12.1-15.1); White Blood Count 14.42 10^3/uL (3.29-11.43)
[2024-07-08 04:59] LABS: Alanine Aminotransferase 36 U/L (0-33); Albumin Level 2.7 g/dL (3.5-5.2); Alkaline Phosphatase 108 U/L (35-105); Anion Gap 17.3 (5-19); Aspartate Amino Transferase 32 U/L (0-32); Blood Urea Nitrogen 39 mg/dL (8-23); Calcium 8.3 mg/dL (8.5-10.5); Carbon Dioxide 21 mmol/L (22-29); Chloride 100 mmol/L (98-107); Creatinine Clr Calc Pharmacy 23.2195; Globulin 3.3 g/dL (1.3-4.6); Glucose 160 mg/dL (65-115); Magnesium 1.6 mg/dL (1.7-2.3); Osmolality Calculated 293 mOsm/kg (285-295); Potassium 3.3 mmol/L (3.5-5.1); Sodium 135 mmol/L (136-145); Total Bilirubin 0.3 mg/dL (0.15-1.2)
[2024-07-08 06:37] LABS: Glucose Point of Care 179 mg/dL (70-110)
[2024-07-08] MEDS: insulin lispro 100 unit/1 mL SUBCUT (10:54)
[2024-07-08] MEDS: vancomycin 125 mg Capsule PO ×4 (10:55→20:19)
[2024-07-08] MEDS: magnesium sulfate premix 2 GM/50 ML PIGGYBACK IV (10:55)
[2024-07-08] MEDS: potassium chloride ER 20 mEq Tablet PO (10:55)
[2024-07-08] MEDS: lidocaine 1% 5 ML in potassium chloride premix 100 ML 52.5 ML IV (10:55)
[2024-07-08] MEDS: pantoprazole 40 mg SDV IVP (10:55)
[2024-07-08 11:38] LABS: Glucose Point of Care 194 mg/dL (70-110)
[2024-07-08 16:58] LABS: Glucose Point of Care 243 mg/dL (70-110)
[2024-07-08] MEDS: sennosides 8.6 mg Tablet 17.2 MG PO (20:19)
[2024-07-08] MEDS: enoxaparin 30 mg/0.3 mL Syringe SUBCUT (20:19)
[2024-07-08 20:45] LABS: Glucose Point of Care 205 mg/dL (70-110)
--- NOTE | 2024-07-08 21:44 | P.PN_ITS ---
Subjective 2 Subjective: She is newly requiring oxygen, but denies having worsening cough. No chest pain. Vitals/I&O/Wt Last Vital Signs Temp 99.0 F 07/08/24 19:59 Pulse 89 07/08/24 20:44 Resp 20 H 07/08/24 20:35 BP 160/65 07/08/24 19:59 Pulse Ox 90 07/08/24 20:44 O2 Del Method Nasal Cannula 07/08/24 20:44 O2 Flow Rate 2 07/08/24 20:44 07/08/24 07/08/24 07/08/24 06:59 14:59 22:59 Intake Total 50 / 925 395 / 395 50 / 445 Balance 50 / 925 395 / 395 50 / 445 Weight last 48 hrs Weight 48.79 kg Weight 48.308 kg Physical Exam 2 Narrative: Mildly hard of hearing. Awake. Const: COMMON NORMALS: patient oriented x3 and alert GENERAL APPEARANCE: c ooperative ORIENTATION/CONSCIOUSNESS: Yes awake HENMT: COMMON NORMALS: oropharynx normal Neck/C-Spine: COMMON NORMALS: no JVD Resp: COMMON NORMALS: normal respiratory effort and clear to auscultation bilaterally AUSCULTATION: clear to auscultation bilaterally Cardio: COMMON NORMALS: no JVD, regular rhythm, S1 normal heart sound present, S2 normal heart sound present and No murmurs present (Cardio) RHYTHM: regular rhythm HEART SOUNDS: S1 normal heart sound present and S2 normal heart sound present GI: COMMON NORMALS: Normal to inspection, nondistended, normoactive bowel sounds present, Soft to palpation and non-tender PALPATION: Yes Soft to palpation Extremity: COMMON NORMALS: no joint enlargement and no pedal edema OTHER: Loss of eschar inferior posterior portion of the right heel. Exposed subcutaneous tissue, stage III ulcer. Neuro: COMMON NORMALS: patient oriented x3 and moves all extremities S ENSORIUM/ORIENTATION: Yes alert Skin: COMMON NORMALS: no rashes or lesions noted GENERAL SKIN EXAM: no rashes or lesions noted Data 07/08/24 04:03 07/08/24 04:03 A&P Assessment and plan (1) Acute respiratory failure with hypoxia: (2) COVID-19: (3) Acute kidney injury: (4) Transaminitis: (5) Sacral decubitus ulcer, stage III: (6) Unstageable pressure ulcer of heel: (7) Severe protein-calorie malnutrition: Edna Wahl is a 84 yo woman w/ HTN, HLD, non-IDDM2, hx of a CVA, who was brought to the ED on 07/01/2024 from [facility] for increasing, congestion, and dyspnea, such that she had to be placed on 2L NC O2, and she does not require O2 at baseline. She is being admitted from the ED for acute hypoxic respiratory failure secondary to COVID-19 infection for further management In the ED, her vital signs were within normal limits. Her labs are significant for leukocytosis of 13.75, potassium of 3.3, BUN/Cr of 78/2.5 (baseline of 34/1.1 as of 09/2023). Her CXR showed no acute findings. She was given dexamethasone 10 mg IVP x 1 and 1 L NS and admitted for further management. C. difficile colitis: So far without recurrence of fever, low-grade temp 99. Leukocytosis showing some improvement down to 14.42. On 07/07 with fever 101, leukocytosis with persistence, but only minimal worsening today up to 22.64. Continue treatment of C. difficile colitis with oral vancomycin. Hypomagnesemia: Replace. Recheck. # Severe COVID-19 pneumonia: Was saturating in the low 90s on room air, has been taken off off Decadron. However, worsened oxygenation today requiring 2 L nasal cannula oxygen. Will repeat chest x-ray to assess for any secondary pneumonia. Lovenox VTE prophylaxis. Antitussive as needed. Leukocytosis: C. difficile colitis. Continue wound care. Follow-up with wound care clinic. Heel ulcer not likely source of leukocytosis. Failure to thrive: She feels she might do better with chocolate Ensure. Change flavor. She acknowledges overall decline in functional capacity and quality of life. Has also not been eating. Currently discussed with her treating C. difficile colitis. She may be interested in pursuing hospice upon return to half-way. She has had a progressive decline in functional capacity, has been bedridden, had declined to participate in physical therapy. Recently has been declining to eat as well. Does not have history of formally diagnosed dementia as per discussion with her friend and power of assistant attorney general diabetes. Susan feels that she has overall progressively been giving up on life. With known severe peripheral arterial disease, previously bypass surgery and then BKA were offered for her right lower extremity which she had declined. Hospice care was being considered at the half-way. Overall given poor quality of life, progressively declining functional capacity, recently also not eating, we discussed consideration of feeding support, but would not recommend feeding tube. Overall initiation of hospice care is not unreasonable. We did get the results of positive C. difficile later in the day, and so for now we are starting treatment in case it may help with loss of appetite. As per discussion once she is ready may return to half-way to further reassess goals of care with primary provider. #FLAKITO: Reviewed creatinine, BUN, potassium. Requested to supplement hypokalemia. Recheck chemistry. Replace magnesium. Improving FLAKITO. Reassess renal function. Discharge deferred for now pending proving kidney function, pending additional assessment of PAD with possible revascularization. Review arterial duplex of lower extremity with noted severe peripheral artery disease, features of total occlusion of posterior tibial artery on the right side. Recheck renal function. Monitor intake and output. Hypokalemia: Give additional K. Recheck chemistry. Stage III right heel ulcer: Continue wound care. Float heels. Follow-up with wound care. Discussed with podiatry, reviewed podiatry note. Appreciate consultation. Continue wound care, follow-up with wound care clinic. Discussed with her power of assistant attorney general and friend Susan. On admission with malodorous discharge, surrounding cellulitis, continues on Zosyn for now. With improvement so far. If continues to do well, discontinue Zosyn. Monitor for risk of cytopenias. Reviewed vitals, CBC, BMP, blood culture. Blood culture remaining negative. #Acute hypoxic respiratory failure: Respiratory failure resolved. #Transaminits: likely due to COVID-19. Repeat chemistry. #Stage III sacrococcygeal ulcer: Continue repositioning as condition requires. Add nutritional supplement. Dietitian consultation. #Severe Protein Calorie Malnutrition: Consult Spout Liner Helper for recs. #HTN: Hold meds at this time #HLD: Hold meds at this time #non-IDDM2: Monitor glucose. Low dose sliding scale for meals and bedtime ordered. DVT ppx: Lovenox 30 Code status:DNR/DNI. Attestations 2 Medical Necessity Statement*: Continue admission for C. difficile colitis, COVID with worsening hypoxia. Complicated by poor oral intake. Recovering from COVID infection. Goals of care discussion. Post discharge planning and arrangements. Diagnoses Acute respiratory failure with hypoxia J96.01 COVID-19 U07.1 Acute kidney injury N17.9 Transaminitis R74.01 Sacral decubitus ulcer, stage III L89.153 Unstageable pressure ulcer of heel L89.600 Severe protein-calorie malnutrition E43
[2024-07-09] VITALS (10 sets, daily range): BP systolic 140–173; BP diastolic 55–68; PULSE 79–91; RESP 15–18; TEMP 36.8–37.1; O2SAT 85–92
[2024-07-09] MEDS: piperacillin-tazobactam 3.375 GM in sodium chloride 0.9% (plus) 50 ML IV ×2 (01:49→17:49)
[2024-07-09] MEDS: ipratropium-albuterol 3 mL Neb INHALATION ×4 (03:06→20:33)
[2024-07-09 04:27] LABS: Basophils % 0.1 %; Eosinophils # 0.1 10^3/uL (0.0-0.8); Eosinophils % 0.7 %; Hematocrit 30.7 % (36-47); Lymphocytes # 1.1 10^3/uL (0.8-4.8); Lymphocytes % 7.6 %; Mean Corpuscular HGB Conc 31.6 g/dL (30-55); Mean Corpuscular Hemoglobin 24.4 pg (27-33); Mean Corpuscular Volume 77.1 fl (85-98); Mean Platelet Volume 11.1 fL (7.4-10.4); Monocytes # 0.6 10^3/uL (0.2-0.9); Monocytes % 3.7 %; Neutrophils # 13.09 10^3/uL (1.8-7.7); Neutrophils % 86.9 %; Nucleated Red Blood Cells % 0 %; Platelet Count 327 10^3/cmm (157-399); Red Blood Count 3.98 10^6/uL (3.85-5.65); Red Cell Distribution Width 17.9 % (12.1-15.1); White Blood Count 15.04 10^3/uL (3.29-11.43)
[2024-07-09 04:46] LABS: Alanine Aminotransferase 31 U/L (0-33); Albumin Level 2.5 g/dL (3.5-5.2); Alkaline Phosphatase 106 U/L (35-105); Anion Gap 17.3 (5-19); Aspartate Amino Transferase 25 U/L (0-32); Blood Urea Nitrogen 32 mg/dL (8-23); Calcium 8.1 mg/dL (8.5-10.5); Carbon Dioxide 20 mmol/L (22-29); Chloride 99 mmol/L (98-107); Creatinine Clr Calc Pharmacy 27.3597; Globulin 3.2 g/dL (1.3-4.6); Glucose 158 mg/dL (65-115); Osmolality Calculated 286 mOsm/kg (285-295); Potassium 3.3 mmol/L (3.5-5.1); Sodium 133 mmol/L (136-145); Total Bilirubin 0.3 mg/dL (0.15-1.2); Total Protein 5.7 g/dL (6.6-8.7)
[2024-07-09 05:31] LABS: D Dimer 1.27 ug/mLFEU (0-0.59)
[2024-07-09 06:28] LABS: Glucose Point of Care 164 mg/dL (70-110)
--- NOTE | 2024-07-09 08:00 | XR_ITS ---
WS: [id number] PORTABLE CHEST HISTORY: Hypoxia COMPARISON: 07/01/2024 New scattered reticular opacifications are noted bilaterally. Greatest distribution of the new airspa ce disease in the lingula and RIGHT upper lobe. Possibly in the LEFT lower lobe also. Very minimal bl unting of the costophrenic angles. Cardiac size: Normal. Mediastinum/Aorta: Mild atherosclerosis aorta. Osteopenia. High riding humeral heads. XR/XR chest 1V portable [id number] IMPRESSION: 1. New bilateral reticular nodular opacification since 07/01/2024. Due to sudd en onset this is consistent with developing pneumonia and possibly related to a spiration. 2. Minimal blunting of the costophrenic angles. 3. Severe osteopenia.
[2024-07-09] MEDS: insulin lispro 100 unit/1 mL SUBCUT ×4 (08:50→21:18)
[2024-07-09] MEDS: vancomycin 125 mg Capsule PO ×4 (08:50→21:18)
[2024-07-09] MEDS: potassium chloride ER 20 mEq Tablet PO (08:50)
[2024-07-09] MEDS: pantoprazole 40 mg SDV IVP (08:50)
--- NOTE | 2024-07-09 10:46 | PC.SOCIAL ---
IMM updated Updated pt on IMM. No questions voiced. Provided pt a copy. Initialed, dated, & timed copy in chart.
[2024-07-09 11:58] LABS: Glucose Point of Care 183 mg/dL (70-110)
[2024-07-09 13:37] LABS: Iron 23 ug/dL (37-145); Percent Saturation 21.6 % (20-50); Total Iron Binding Capacity 106 mcg/dl; Unsaturated Iron Binding 83 ug/dL (112-347)
[2024-07-09 13:49] LABS: Procalcitonin 0.39 ng/mL (0-0.5); Vitamin B12 460 pg/mL (232-1245)
[2024-07-09 14:06] LABS: Estmated Average Glucose 212
--- NOTE | 2024-07-09 15:08 | P.PN_ITS ---
Subjective 2 Subjective: Hospital course, labs appreciated. Examination laying comfortably in bed. Chronically weak appearing. On 2 L of oxygen supplementation. States she is feeling better but continues to feel weak. Oral intake has been minimal. Does not like to have Ensure. Vitals/I&O/Wt Last Vital Signs Temp 98.8 F 07/09/24 12:00 Pulse 81 07/09/24 13:53 Resp 18 07/09/24 13:53 BP 146/67 07/09/24 12:00 Pulse Ox 88 L 07/09/24 13:53 O2 Del Method Room Air 07/09/24 13:53 O2 Flow Rate 2 07/09/24 04:00 07/09/24 07/09/24 07/09/24 06:59 14:59 22:59 Intake Total 410 / 1095 360 / 360 Balance 410 / 1095 360 / 360 Weight last 48 hrs Weight 48.897 kg Weight 48.761 kg Weight 48.79 kg Physical Exam 2 Narrative: Mildly hard of hearing. Awake. Const: COMMON NORMALS: no acute distress, patient oriented x3 and alert G ENERAL APPEARANCE: cooperative NUTRITIONAL APPEARANCE: cachectic O RIENTATION/CONSCIOUSNESS: Yes awake HENMT: COMMON NORMALS: oropharynx normal Neck/C-Spine: COMMON NORMALS: no JVD Resp: COMMON NORMALS: normal respiratory effort and clear to auscultation bilaterally AUSCULTATION: clear to auscultation bilaterally Cardio: COMMON NORMALS: no JVD, regular rhythm, S1 normal heart sound present, S2 normal heart sound present and No murmurs present (Cardio) RHYTHM: regular rhythm HEART SOUNDS: S1 normal heart sound present and S2 normal heart sound present GI: COMMON NORMALS: Normal to inspection, nondistended, normoactive bowel sounds present, Soft to palpation and non-tender PALPATION: Yes Soft to palpation Extremity: COMMON NORMALS: no joint enlargement and no pedal edema OTHER: Loss of eschar inferior posterior portion of the right heel. Exposed subcutaneous tissue, stage III ulcer. Neuro: COMMON NORMALS: patient oriented x3 and moves all extremities S ENSORIUM/ORIENTATION: Yes alert Skin: COMMON NORMALS: no rashes or lesions noted GENERAL SKIN EXAM: no rashes or lesions noted Data 07/09/24 03:33 07/09/24 03:33 A&P Assessment and plan (1) Acute respiratory failure with hypoxia: (2) COVID-19: (3) Acute kidney injury: (4) Transaminitis: (5) Sacral decubitus ulcer, stage III: (6) Unstageable pressure ulcer of heel: (7) Severe protein-calorie malnutrition: (8) Failure to thrive: (9) C. difficile colitis: Plan Tamela Wahl is a 84 yo woman w/ HTN, HLD, non-IDDM2, hx of a CVA, who was brought to the ED on 07/01/2024 from [facility] for increasing, congestion, and dyspnea, such that she had to be placed on 2L NC O2, and she does not require O2 at baseline. She is being admitted from the ED for acute hypoxic respiratory failure secondary to COVID-19 infection for further management C. difficile colitis: Improving. Will plan to continue oral vancomycin 4 times daily for overall 14 days at the least. Hypomagnesemia: Replaced. Continue to monitor daily. Hypoxia in setting of COVID-19 pneumonia: Hypoxia secondary to COVID-19 pneumonia: Mild to moderate disease. Oxygen supplementation keeping saturation over 88%. Restart dexamethasone 6 mg daily to finish a 7-day course. Patient has not been started on remdesivir yet. For now we will hold off. Will start if has worsening oxygen supplementation. DuoNeb every 6 hour, budesonide twice daily Pulmonary toilet with incentive spirometry flutter valve. Appreciate D-dimer. We will monitor inflammatory markers including CRP every 48 hours. Low concerns for infectious pneumonia for now. Appreciate chest x-ray. For now we will continue with Zosyn to finish a 7-day course. No sputum culture on chart. Failure to thrive: Chronic. Does not want her child try Ensure. Agreeable to change to boost. Can give a trial of Megace. Monitor with renal functions. Currently discussed with her treating C. difficile colitis. She may be interested in pursuing hospice upon return to half-way. She has had a progressive decline in functional capacity, has been bedridden, had declined to participate in physical therapy. Recently has been declining to eat as well. Does not have history of formally diagnosed dementia as per discussion with her friend and power of senior trial attorney diabetes. Susan feels that she has overall progressively been giving up on life. With known severe peripheral arterial disease, previously bypass surgery and then BKA were offered for her right lower extremity which she had declined. Hospice care was being considered at the half-way. Overall given poor quality of life, progressively declining functional capacity, recently also not eating, we discussed consideration of feeding support, but would not recommend feeding tube. Overall initiation of hospice care is not unreasonable. We did get the results of positive C. difficile later in the day, and so for now we are starting treatment in case it may help with loss of appetite. As per discussion once she is ready may return to half-way to further reassess goals of care with primary provider. Acute kidney injury: Resolving. Medical reconciliation done for nephrotoxic drugs. Monitor renal functions daily. Creatinine down to 1.2. Replace potassium with 40 mg orally. PAD: Appreciate cardiology recommendations. Arterial duplex consistent with severe PAD with total occlusion of posterior tibial artery on right side. No surgical interventions as per cardiology team for now given failure to thrive, severe protein energy malnutrition with possibility of reconstitution of the DP. Hypertension: Goal blood pressure less than 140/90 MAG. Blood pressure slightly elevated today. Start on amlodipine 5 mg oral daily. Stage III right heel ulcer: Appreciate podiatry recommendations. Plan to continue with care. #Stage III sacrococcygeal ulcer: Continue repositioning as condition requires. Add nutritional supplement. Dietitian consultation. Severe Protein Calorie Malnutrition: Consult Tool Shaper Set Up Operator for recs. DNR/DNI Lovenox for DVT prophylaxis Protonix OPD prophylaxis. Attestations 2 Medical Necessity Statement*: Requires further hospitalization for management of hypoxia in setting of COVID- 19, acute kidney injury, stage III heel ulcer in setting of peripheral arterial disease, C. difficile colitis, severe protein energy malnutrition. Diagnoses Acute respiratory failure with hypoxia J96.01 COVID-19 U07.1 Acute kidney injury N17.9 Transaminitis R74.01 Sacral decubitus ulcer, stage III L89.153 Unstageable pressure ulcer of heel L89.600 Severe protein-calorie malnutrition E43 Failure to thrive C. difficile colitis A04.72
[2024-07-09 17:03] LABS: Glucose Point of Care 176 mg/dL (70-110)
[2024-07-09] MEDS: megestrol 400 mg/10 mL UDC 200 MG PO (17:49)
[2024-07-09] MEDS: amlodipine 5 mg Tablet PO (17:49)
[2024-07-09] MEDS: potassium chloride ER 20 mEq Tablet 40 MEQ PO (17:49)
[2024-07-09] MEDS: nicotine 14 mg Patch 1 PATCH TRANSDERMA (17:50)
[2024-07-09] MEDS: dexamethasone 10 mg/mL INJ 6 MG PO (17:51)
[2024-07-09] MEDS: budesonide 0.5 mg/2 mL Neb INHALATION (20:33)
[2024-07-09 20:58] LABS: Glucose Point of Care 208 mg/dL (70-110)
[2024-07-09] MEDS: sennosides 8.6 mg Tablet 17.2 MG PO (21:18)
[2024-07-09] MEDS: insulin glargine 100 units/1 mL 6 UNIT SUBCUT (21:18)
[2024-07-09] MEDS: sertraline 50 mg Tablet 25 MG PO (21:18)
[2024-07-09] MEDS: enoxaparin 30 mg/0.3 mL Syringe SUBCUT (21:19)
[2024-07-10] VITALS (8 sets, daily range): BP systolic 128–152; BP diastolic 57–74; PULSE 75–87; RESP 15–22; TEMP 36.2–36.8; O2SAT 84–91
[2024-07-10] MEDS: piperacillin-tazobactam 3.375 GM in sodium chloride 0.9% (plus) 50 ML IV (01:58)
[2024-07-10 05:37] LABS: Basophils % 0.2 %; Hematocrit 31.8 % (36-47); Lymphocytes # 0.7 10^3/uL (0.8-4.8); Lymphocytes % 4.6 %; Mean Corpuscular HGB Conc 32.1 g/dL (30-55); Mean Corpuscular Volume 77.9 fl (85-98); Mean Platelet Volume 10.6 fL (7.4-10.4); Monocytes # 0.2 10^3/uL (0.2-0.9); Monocytes % 1.4 %; Neutrophils % 92.8 %; Nucleated Red Blood Cells % 0 %; Platelet Count 337 10^3/cmm (157-399); Red Blood Count 4.08 10^6/uL (3.85-5.65); Red Cell Distribution Width 18.2 % (12.1-15.1); White Blood Count 14.88 10^3/uL (3.29-11.43)
[2024-07-10 06:08] LABS: Alanine Aminotransferase 28 U/L (0-33); Albumin Level 2.7 g/dL (3.5-5.2); Alkaline Phosphatase 117 U/L (35-105); Anion Gap 21.8 (5-19); Aspartate Amino Transferase 22 U/L (0-32); Blood Urea Nitrogen 32 mg/dL (8-23); Carbon Dioxide 20 mmol/L (22-29); Chloride 101 mmol/L (98-107); Creatinine Clr Calc Pharmacy 27.4197; Globulin 3.3 g/dL (1.3-4.6); Glucose 174 mg/dL (65-115); Osmolality Calculated 299 mOsm/kg (285-295); Potassium 3.8 mmol/L (3.5-5.1); Sodium 139 mmol/L (136-145); Total Bilirubin 0.3 mg/dL (0.15-1.2)
[2024-07-10 06:31] LABS: Glucose Point of Care 184 mg/dL (70-110)
[2024-07-10] MEDS: budesonide 0.5 mg/2 mL Neb INHALATION ×2 (08:25→20:02)
[2024-07-10] MEDS: ipratropium-albuterol 3 mL Neb INHALATION ×3 (08:25→20:02)
[2024-07-10] MEDS: amlodipine 5 mg Tablet PO (08:44)
[2024-07-10] MEDS: megestrol 400 mg/10 mL UDC 200 MG PO (08:44)
[2024-07-10] MEDS: vancomycin 125 mg Capsule PO ×4 (08:44→21:22)
[2024-07-10] MEDS: pantoprazole 40 mg SDV IVP (08:44)
[2024-07-10] MEDS: potassium chloride ER 20 mEq Tablet PO (08:44)
[2024-07-10] MEDS: insulin lispro 100 unit/1 mL SUBCUT ×2 (08:44→21:22)
[2024-07-10] MEDS: levothyroxine 50 mcg Tablet PO (08:44)
[2024-07-10 11:43] LABS: Glucose Point of Care 138 mg/dL (70-110)
--- NOTE | 2024-07-10 12:19 | P.DS_ITS ---
Discharge Providers Date of Admission: 07/01/24 19:19 Date of Discharge: July 10, 2024 Attending Provider at Admission: Laila Sweeney MD Attending Provider at Discharge: Bacilio Gill MD Consults: Cardiology: Dr. Kaplan Podiatry: Dr. Mccray Primary Care Provider: Antoni Katz DO Diagnoses at Discharge Discharge Diagnosis (1) Acute respiratory failure with hypoxia: Status: Acute (2) COVID-19: Status: Acute (3) Acute kidney injury: Status: Acute (4) Transaminitis: Status: Acute (5) Sacral decubitus ulcer, stage III: Status: Acute (6) Unstageable pressure ulcer of heel: Status: Acute Permanent problem details: Right heel (7) Severe protein-calorie malnutrition: Status: Acute (8) Failure to thrive: Status: Acute (9) C. difficile colitis: Status: Acute Reason for Visit Reason for Visit: cough Brief History: History as per HPI: History was obtained from ED notes, because patient was AO x 0 Tamela Wahl is a 84 yo woman w/ HTN, HLD, non-IDDM2, hx of a CVA, who was brought to the ED on 07/01/2024 from [facility] for increasing, congestion, and dyspnea, such that she had to be placed on 2L NC O2, and she does not require O2 at baseline. In the ED, her vital signs were within normal limits. Her labs are significant for leukocytosis of 13.75, potassium of 3.3, BUN/Cr of 78/2.5 (baseline of 34/1.1 as of 09/2023). Her CXR showed no acute findings. She was given dexamethasone 10 mg IVP x 1 and 1 L NS and admitted for further management. Hospital Course Hospital Course Hospital for further evaluation and management of acute hypoxic respiratory failure, acute kidney injury, altered mental status thought to be in setting of COVID-19. She was found to have sacral stage III decubitus and heel ulcer along with severe protein energy malnutrition. She was started on IV hydration and dexamethasone after which her FLAKITO resolved. Arterial duplex was consistent with significant PAD. Podiatry and cardiology were consulted for further management. As per cardiology patient did not qualify for any surgical interventions given her poor baseline state of health along with concerns for collateral blood flow with single-vessel. Podiatry recommended wound care without concerns for amputation. Given her baseline quality of life. Eventually patient's mentation improved and has been at her baseline for last 48 hours. Patient continued to have poor oral intake. Megace has been added to help increase oral appetite. Given her significant failure to thrive, severe p rotein energy malnutrition, cachexia, quality of life goals of care discussions were done with patient's family members who are going to be setting up hospice as an outpatient at patient's senior living. Her hospitalization was further complicated by her developing significant leukocytosis and diarrhea. She was found to be positive for C. difficile. Started on oral vancomycin after which diarrhea is subsiding and leukocytosis is resolving as well. She has been discharged in stable condition on oral dexamethasone for 7 more days, oral vancomycin for 2 more weeks. She has been started on Megace. She is to continue nebulization treatment along with 2 L of oxygen supplementation. She is to continue wound care treatment as an outpatient. Physical Exam Narrative: Mildly hard of hearing. Awake. Const: COMMON NORMALS: no acute distress, patient oriented x3 and alert GENERAL APPEARANCE: cooperative NUTRITIONAL APPEARANCE: cachectic ORIENTATION/CONSCIOUSNESS: Yes awake HENMT: COMMON NORMALS: oropharynx normal Neck/C-Spine: COMMON NORMALS: no JVD Resp: COMMON NORMALS: normal respiratory effort and clear to auscultation bilaterally AUSCULTATION: clear to auscultation bilaterally Cardio: COMMON NORMALS: no JVD, regular rhythm, S1 normal heart sound present, S2 normal heart sound present and No murmurs present (Cardio) RHYTHM: regular rhythm HEART SOUNDS: S1 normal heart sound present and S2 normal heart sound present GI: COMMON NORMALS: Normal to inspection, nondistended, normoactive bowel sounds present, Soft to palpation and non-tender PALPATION: Yes Soft to palpation Extremity: COMMON NORMALS: no joint enlargement and no pedal edema OTHER: Loss of eschar inferior posterior portion of the right heel. Exposed subcutaneous tissue, stage III ulcer. Neuro: COMMON NORMALS: patient oriented x3 and moves all extremities SENSORIUM/ORIENTATION: Yes alert Skin: COMMON NORMALS: no rashes or lesions noted GENERAL SKIN EXAM: no rashes or lesions noted Discharge Data Studies Completed and Pending Completed Studies During Hospitalization Category Date Time Status XR chest 1V portable [id number] Routine Exams 07/09/24 08:00 Completed XR chest 1V portable [id number] Stat Exams 07/01/24 17:27 [place] [id number] Routine Ultrasound 07/02/24 20:56 Completed Pending at discharge Category Date Time Status MAG [Magnesium] AM LABS Lab 07/11/24 04:00 Ordered MAG [Magnesium] AM LABS Lab 07/12/24 04:00 Ordered Radiology Impressions Chest X-Ray 07/09/24 08:00 IMPRESSION: 1. New bilateral reticular nodular opacification since 07/01/2024. Due to sudden onset this is consistent with developing pneumonia and possibly related to aspiration. 2. Minimal blunting of the costophrenic angles. 3. Severe osteopenia. Microbiology 07/01/24 19:04 Blood Blood Culture - Final NO GROWTH AFTER 5 DAYS 07/01/24 19:01 Blood Blood Culture - Final NO GROWTH AFTER 5 DAYS Laboratory Results WBC 14.88 10^3/uL (3.29-11.43) H 07/10/24 05:19 RBC 4.08 10^6/uL (3.85-5.65) 07/10/24 05:19 Hgb 10.20 g/dL (11.27-16.99) L 07/10/24 05:19 Hct 31.8 % (36-47) L 07/10/24 05:19 MCV 77.9 fl (85-98) L 07/10/24 05:19 MCH 25.0 pg (27-33) L 07/10/24 05:19 MCHC 32.1 g/dL (30-55) 07/10/24 05:19 RDW 18.2 % (12.1-15.1) H 07/10/24 05:19 Plt Count 337 10^3/cmm (157-399) 07/10/24 05:19 MPV 10.6 fL (7.4-10.4) H 07/10/24 05:19 Neut % (Auto) 92.8 % 07/10/24 05:19 Lymph % (Auto) 4.6 % 07/10/24 05:19 Beltrami % (Auto) 1.4 % 07/10/24 05:19 Eos % (Auto) 0.0 % 07/10/24 05:19 Baso % (Auto) 0.2 % 07/10/24 05:19 Neut # (Auto) 13.80 10^3/uL (1.8-7.7) H 07/10/24 05:19 Lymph # (Auto) 0.7 10^3/uL (0.8-4.8) L 07/10/24 05:19 Beltrami # (Auto) 0.2 10^3/uL (0.2-0.9) 07/10/24 05:19 Eos # (Auto) 0.0 10^3/uL (0.0-0.8) 07/10/24 05:19 Baso # (Auto) 0.0 10^3/uL (0.0-0.1) 07/10/24 05:19 Nucleated RBC % (auto) 0 % 07/10/24 05:19 Nucleated RBCs # 0.0 /100WBC 07/10/24 05:19 ESR 77 mm/hr (0-15) H 07/01/24 17:55 D-Dimer 1.27 ug/mLFEU (0-0.59) H 07/09/24 03:33 Sodium 139 mmol/L (136-145) 07/10/24 05:19 Potassium 3.8 mmol/L (3.5-5.1) 07/10/24 05:19 Chloride 101 mmol/L (98-107) 07/10/24 05:19 Carbon Dioxide 20 mmol/L (22-29) L 07/10/24 05:19 Anion Gap 21.8 (5-19) H 07/10/24 05:19 BUN 32 mg/dL (8-23) H 07/10/24 05:19 Creatinine 1.2 mg/dL (0.5-0.9) H 07/10/24 05:19 GFR Calculation Not Reportable 07/10/24 05:19 Glucose 174 mg/dL (65-115) H 07/10/24 05:19 POC Glucose 138 mg/dL (70-110) H 07/10/24 11:00 Estimat Average Glucose 212 07/09/24 03:33 Hemoglobin A1c 9.0 % (4.0-6.0) H 07/09/24 03:33 Calculated Osmolality 299 mOsm/kg (285-295) H 07/10/24 05:19 Lactic Acid 1.7 mmol/L (0.5-2.2) 07/01/24 17:55 Calcium 8.0 mg/dL (8.5-10.5) L 07/10/24 05:19 Phosphorus 2.3 mg/dL (2.5-4.5) L 07/05/24 04:21 Magnesium 2.0 mg/dL (1.7-2.3) 07/10/24 05:19 Iron 23 ug/dL (37-145) L 07/09/24 03:33 TIBC 106 mcg/dl 07/09/24 03:33 % Saturation 21.6 % (20-50) 07/09/24 03:33 Unsat Iron Binding 83 ug/dL (112-347) L 07/09/24 03:33 Total Bilirubin 0.3 mg/dL (0.15-1.2) 07/10/24 05:19 AST 22 U/L (0-32) 07/10/24 05:19 ALT 28 U/L (0-33) 07/10/24 05:19 Alkaline Phosphatase 117 U/L (35-105) H 07/10/24 05:19 C-Reactive Protein 121.0 mg/L (0.0-4.9) H 07/01/24 17:55 NT-Pro-B Natriuret Pep 1903 pg/mL (0-450) H 07/01/24 17:55 Total Protein 6.0 g/dL (6.6-8.7) L 07/10/24 05:19 Albumin 2.7 g/dL (3.5-5.2) L 07/10/24 05:19 Globulin 3.3 g/dL (1.3-4.6) 07/10/24 05:19 Vitamin B12 460 pg/mL (232-1245) 07/09/24 03:33 Procalcitonin 0.39 ng/mL (0-0.5) 07/09/24 03:33 TSH 0.88 uIU/mL (0.27-4.20) 07/02/24 05:16 C. difficile (PCR) Positive (Negative) H 07/06/24 15:05 Coronavirus (PCR) Positive (Negative) A 07/01/24 17:52 Influenza A (PCR) Negative (Negative) 07/01/24 17:52 Influenza Type B (PCR) Negative (Negative) 07/01/24 17:52 RSV (PCR) Negative (Negative) 07/01/24 17:52 Vitals Last Vital Signs Temp 97.4 F L 07/10/24 08:00 Pulse 85 07/10/24 08:00 Resp 18 07/10/24 08:00 BP 146/63 07/10/24 08:00 Pulse Ox 89 L 07/10/24 08:00 O2 Del Method Room Air 07/10/24 08:00 O2 Flow Rate 3 07/10/24 08:00 Discharge Plan Discharge Patient Disposition: Xfer SNF Condition: Stable Prescriptions: New amlodipine 5 mg Tablet 5 mg PO DAILY Qty: 30 0RF megestrol 400 mg/10 mL (40 mg/mL) Suspension 200 mg PO DAILY 30 Days Qty: 480 0RF dexamethasone 6 mg tablet 6 mg PO DAILY Qty: 7 0RF vancomycin 125 mg capsule 125 mg PO QID 14 Days Qty: 56 0RF fluticasone propion-salmeterol [Advair Diskus] 250-50 mcg/dose blister with device 1 inh inhalation BID Qty: 60 0RF Spiriva Respimat 1.25 mcg/actuation mist 2 inh inhalation Q24H Qty: 4 0RF Continued acetaminophen 325 mg capsule 325 mg PO QID PRN (Reason: pain) levothyroxine [Levo-T] 50 mcg tablet 50 mcg PO DAILY ondansetron HCl 4 mg tablet 4 mg PO PRN insulin degludec [Tresiba FlexTouch U-100] 100 unit/mL (3 mL) insulin pen 6 unit SUBCUT BEDTIME nicotine 14 mg/24 hr Patch 24 Hour 1 patch TRANSDERMAL Q24H magnesium hydroxide [Milk of Magnesia] 400 mg/5 mL Suspension 30 ml PO Q24H PRN (Reason: Constipation) sertraline 25 mg tablet 25 mg PO BEDTIME polyethylene glycol 3350 [Miralax] 17 gram/dose Powder See Rx Instructions .ROUTE .COMPLEX Rx Instructions: Take 17 g (1 scoop) orally in 4 to 8 oz liquid as needed for constipation. 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 rosuvastatin 20 mg tablet 20 mg PO BEDTIME Discharge Orders: Discharge Order (Routine); Ordered 07/10/24 Ordered By: Bacilio Gill Referrals: [facility] [Outside] Antoni Katz DO [Primary Care Provider] - 4-7 days [facility], [Staff Physician] - 7-10 days Discharge Diet: Diabetic Patient Instructions: Megestrol (By mouth), Vancomycin (By mouth), Dexamethasone (By mouth), C. Diff (Clostridioides Difficile) Infection (GEN) Activity Restrictions/Additional Instructions: Dexamethasone is a steroid which is supposed to take for next 7 days. Continue with inhaler treatment with Spiriva and Advair for next 1 month. Try to increase physical activity and oral intake as much as possible. Megace has been added as appetite stimulant. Vancomycin orally 4 times a day for next 14 days for C. difficile. Patient needs 2 L of oxygen daily to maintain saturation over 90%. Discharge Attestations Time Spent in Discharge Care*: greater than 30 min Specific Discharge Activities: educating patient, discussing with pcp/other providers, discussing with assistant case manager/social workers/dc planners, documenting/other paperwork and evaluating patient/reviewing data Status at Discharge: Cognitive status at discharge: mildly impaired cognition , Behavioral status at discharge: cooperative , Functional status at discharge: wheelchair bound , Overall status at discharge: patient is progressing back to baseline Quality Metrics Clinical Quality Measures [ No reported AMI, CVA or VTE this stay] Coding Level of Care Code Acute Code for Chg Fwd Diagnoses Acute respiratory failure with hypoxia J96.01 COVID-19 U07.1 Acute kidney injury N17.9 Transaminitis R74.01 Sacral decubitus ulcer, stage III L89.153 Unstageable pressure ulcer of heel L89.600 Severe protein-calorie malnutrition E43 Failure to thrive C. difficile colitis A04.72
[2024-07-10] MEDS: nicotine 14 mg Patch 1 PATCH TRANSDERMA (12:39)
[2024-07-10] MEDS: dexamethasone 10 mg/mL INJ 6 MG PO (12:39)
--- NOTE | 2024-07-10 14:08 | PC.NURSE ---
This nurse called report to ALEJANDRA Andrea at [facility] at 1400. Pt awaiting transport.
--- NOTE | 2024-07-10 16:50 | PC.NURSE ---
This nurse called [facility] at 1650 to inquire about ETA as pt has been waiting on a ride since 1300. Per Stuart, he says he has not received any information on this pt. medical records secretary called [facility] regarding this pt. [facility] messed up ride. [facility] is unable to transfer pt tonight. They will pickling solution maker pt in the morning.
[2024-07-10 17:00] LABS: Glucose Point of Care 136 mg/dL (70-110)
[2024-07-10 20:49] LABS: Glucose Point of Care 180 mg/dL (70-110)
[2024-07-10] MEDS: enoxaparin 30 mg/0.3 mL Syringe SUBCUT (21:22)
[2024-07-10] MEDS: sennosides 8.6 mg Tablet 17.2 MG PO (21:22)
[2024-07-10] MEDS: sertraline 50 mg Tablet 25 MG PO (21:22)
[2024-07-10] MEDS: insulin glargine 100 units/1 mL 6 UNIT SUBCUT (21:23)
[2024-07-10] MEDS: acetaminophen 325 mg Tablet 650 MG PO (21:25)
[2024-07-11] VITALS (7 sets, daily range): BP systolic 113–148; BP diastolic 55–94; PULSE 80–85; RESP 16–20; TEMP 36.3–36.7; O2SAT 90–92; BMI 15.2
[2024-07-11 06:49] LABS: Glucose Point of Care 139 mg/dL (70-110)
[2024-07-11] MEDS: megestrol 400 mg/10 mL UDC 200 MG PO (07:49)
[2024-07-11] MEDS: levothyroxine 50 mcg Tablet PO (07:50)
[2024-07-11] MEDS: vancomycin 125 mg Capsule PO (07:50)
[2024-07-11] MEDS: amlodipine 5 mg Tablet PO (07:50)
[2024-07-11] MEDS: potassium chloride ER 20 mEq Tablet PO (07:50)
[2024-07-11] MEDS: budesonide 0.5 mg/2 mL Neb INHALATION (08:39)
[2024-07-11] MEDS: ipratropium-albuterol 3 mL Neb INHALATION ×2 (08:39→11:14)
--- NOTE | 2024-07-11 09:43 | PC.NURSE ---
Report called to Suri at [facility].
--- NOTE | 2024-07-11 09:45 | PC.SOCIAL ---
IMM updated Updated pt on IMM. No questions voiced. Provided pt a copy. Initialed, dated, & timed copy in chart.
[2024-07-11 10:56] LABS: Glucose Point of Care 156 mg/dL (70-110)
--- NOTE | 2024-07-11 12:54 | PC.NURSE ---
[facility] here to transport pt to [facility]. Suri at [facility] advised that pt is on her way
== END 2024-07-11 12:55 | disposition skilled nursing facility (03) | DRG 177 ==
LOC: ER 19:20 → MEDSURG 19:45
PROVIDERS: Internal Medicine; Admitting Provider Internal Medicine; Emergency Provider Emergency Medicine; PCP Internal Medicine; Visit Provider Student in an Organized Health Care Education/Training Program
DX: U07.1 COVID-19 (principal); E43 Unspecified severe protein-calorie malnutrition; L89.153 Pressure ulcer of sacral region, stage 3; L89.613 Pressure ulcer of right heel, stage 3; J12.82 Pneumonia due to coronavirus disease 2019; J96.01 Acute respiratory failure with hypoxia; A04.72 Enterocolitis due to Clostridium difficile, not specified as recurrent; N17.9 Acute kidney failure, unspecified; Z68.1 Body mass index [BMI] 19.9 or less, adult; I82.441 Acute embolism and thrombosis of right tibial vein; R62.7 Adult failure to thrive; I10 Essential (primary) hypertension; E78.00 Pure hypercholesterolemia, unspecified; E11.9 Type 2 diabetes mellitus without complications; I73.9 Peripheral vascular disease, unspecified; G31.84 Mild cognitive impairment of uncertain or unknown etiology; E83.42 Hypomagnesemia; Z66 Do not resuscitate; E87.6 Hypokalemia; F17.210 Nicotine dependence, cigarettes, uncomplicated; Z79.4 Long term (current) use of insulin; Z79.84 Long term (current) use of oral hypoglycemic drugs; Z99.3 Dependence on wheelchair; Z74.01 Bed confinement status; Z98.890 Other specified postprocedural states; Z88.5 Allergy status to narcotic agent; Z86.73 Personal history of transient ischemic attack (TIA), and cerebral infarction without residual deficits; Z91.040 Latex allergy status; Z89.411 Acquired absence of right great toe
CPT/HCPCS: 36415; 36416; 71045; 80048; 80053; 82607; 82962; 83036; 83540; 83550; 83605; 83735; 83880; 84100; 84145; 84443; 85025; 85378; 85651; 86140; 87040; 87493; 87637; 93926; 94640; 94664; 96372; 96374; 97110; 97161; 97530; 99232; 99233; 99285; J1100; J1650; J1815; J2470; J2543; J3475; J3480; J7030; J7626; P9046